=== PATIENT | female | born 1975 | race African-American/Black ===

== ENCOUNTER 2022-01-29 20:18 | Inpatient (IN) | payer OTHER ==
[2022-01-29 21:18] VITALS: BMI 33.9
[2022-01-30] MEDS ORDERED: VANCOMYCIN 1 GM in D5W (PRE-DOCKED) 1,000 MG/250 ML IVPB ONE (00:33)
[2022-01-30] MEDS ORDERED: CEFTRIAXONE 1,000 MG in DEXTROSE 5%-WATER - 50 ML IVPB ONE (00:33)
[2022-01-30 01:56] LABS: BASO % 0.5 % (0-2.0); EOS % 2.4 % (0-4.5); HEMATOCRIT 34.4 % (32.4-45.2); HEMOGLOBIN 11.2 GM/dL (10.7-15.3); LYMPH % 30.8 % (8-40); MCH 24.7 pg (25.7-33.7); MCHC 32.5 g/dl (32.0-36.0); MEAN PLT VOLUME 9.5 fl (7.5-11.1); MONO % 6.3 % (3.8-10.2); PLATELET COUNT 354 10^3/uL (134-434); RBC 4.52 M/mm3 (3.60-5.2); RDW 16.4 % (11.6-15.6); WHITE BLOOD COUNT 9.4 K/mm3 (4.0-10.0)
[2022-01-30] MEDS ORDERED: CEFTRIAXONE 1 GM/50 ML BAG ONE (01:56)
[2022-01-30 02:03] LABS: INR 0.92 (0.83-1.09); PROTHROMBIN TIME (PATIENT) 10.6 SEC (9.7-13.0)
[2022-01-30 02:05] LABS: ACTIVATED PTT 29.8 SECONDS (25.2-36.5)
[2022-01-30 02:20] LABS: CHLORIDE 102 mmol/L (98-107); SODIUM 138 mmol/L (136-145)
[2022-01-30] MEDS ORDERED: VANCOMYCIN/WATER FOR INJ (PEG) 1,000 MG/200 ML BAG IVPB ONE (02:38)
[2022-01-30 02:51] LABS: ERYTHROCYTE SEDIMENTATION RATE 84 mm/hr (0-20)
[2022-01-30] MEDS ORDERED: POTASSIUM CHLORIDE TABS 20 MEQ TABLET.ER (FP) PO ONE (04:20)
[2022-01-30 04:33] LABS: SGOT/AST 33 U/L (15-37)
[2022-01-30 04:46] LABS: ALBUMIN 2.6 g/dl (3.4-5.0); BLOOD UREA NITROGEN 11.7 mg/dL (7-18); CO2 27 mmol/L (21-32); GLUCOSE,RANDOM 310 mg/dL (74-106)
[2022-01-30 04:49] LABS: SGPT/ALT 12 U/L (13-61)
[2022-01-30 04:51] LABS: BILIRUBIN,TOTAL 0.4 mg/dL (0.2-1); TOT PROT 7.3 g/dl (6.4-8.2)
[2022-01-30 04:52] LABS: ALK PHOS 68 U/L (45-117)
[2022-01-30] MEDS ORDERED: MELATONIN 5 MG TABLETS PO PRN (05:04)
[2022-01-30] MEDS ORDERED: ACETAMINOPHEN 500 MG TABLET (FP) PO PRN (05:04)
[2022-01-30] MEDS ORDERED: INSULIN (NOVOLOG) ASPART 100 UNITS/ML 10ML VIAL SQ ONE (05:08)
[2022-01-30 05:16] LABS: ANION GAP 9 MMOL/L (8-16)
[2022-01-30] MEDS: INSULIN SLIDING SCALE (NOVOLOG) 1 VIAL SQ SCH ×4 (08:45→21:11)
[2022-01-30] MEDS ORDERED: LOSARTAN POTASSIUM 50 MG TABLET ONE ×2 (09:34→09:43)
[2022-01-30] MEDS ORDERED: ENOXAPARIN NA (PORCINE) 40 MG/0.4 ML DISP.SYRIN SQ ONE (09:35)
[2022-01-30] MEDS: LOSARTAN POTASSIUM 50 MG TABLET PO SCH (09:49)
[2022-01-30] MEDS: ENOXAPARIN NA (PORCINE) 40 MG/0.4 ML DISP.SYRIN SQ SCH (09:50)
[2022-01-30] MEDS ORDERED: amLODIPine BESYLATE 10 MG TABLET (FP) PO SCH (10:00)
[2022-01-30] MEDS: INSULIN (LEVEMIR) 100 UNITS/ML UNITS SQ SCH ×2 (12:00→21:10)
[2022-01-30] MEDS: CARVEDILOL 6.25 MG TABLET (FP) PO SCH ×2 (20:20→21:01)
[2022-01-30] MEDS: CHLORTHALIDONE 25 MG TABLET PO SCH (20:20)
[2022-01-30] MEDS: COLLAGENASE CLOSTRIDIUM HIST. 30 GRAMS TUBE TP SCH (20:21)
[2022-01-30] MEDS: PIPERACILLIN/TAZOB 3.375 GM 3.375 GM in DEXTROSE 5%-WATER - 50 ML IVPB SCH (20:31)
[2022-01-30] MEDS: DOXYCYCLINE HYCLATE 100 MG CAPSULE PO SCH ×2 (20:31→20:38)
[2022-01-30] MEDS ORDERED: INSULIN (NOVOLOG) ASPART 100 UNITS/ML 10ML VIAL ONE (21:14)
[2022-01-30] MEDS: ROSUVASTATIN CA 20 MG TABLET PO SCH (21:35)
[2022-01-30] MEDS: ACETAMINOPHEN 1000 MG/100 ML BAG IVPB PRN (22:18)
[2022-01-31] MEDS: PIPERACILLIN/TAZOB 3.375 GM 3.375 GM in DEXTROSE 5%-WATER - 50 ML IVPB SCH ×3 (02:26→17:05)
[2022-01-31] MEDS: INSULIN (LEVEMIR) 100 UNITS/ML UNITS SQ SCH ×2 (06:39→22:45)
[2022-01-31] MEDS: ACETAMINOPHEN 1000 MG/100 ML BAG IVPB PRN (06:39)
[2022-01-31] MEDS: INSULIN SLIDING SCALE (NOVOLOG) 1 VIAL SQ SCH ×4 (06:42→22:46)
[2022-01-31] MEDS: CARVEDILOL 6.25 MG TABLET (FP) PO SCH ×2 (09:23→22:44)
[2022-01-31] MEDS: LOSARTAN POTASSIUM 50 MG TABLET PO SCH (09:23)
[2022-01-31] MEDS: CHLORTHALIDONE 25 MG TABLET PO SCH (09:24)
[2022-01-31] MEDS: ENOXAPARIN NA (PORCINE) 40 MG/0.4 ML DISP.SYRIN SQ SCH (09:24)
[2022-01-31] MEDS: COLLAGENASE CLOSTRIDIUM HIST. 30 GRAMS TUBE TP SCH (09:30)
[2022-01-31 10:06] LABS: BASO % 0.5 % (0-2.0); EOS % 3.6 % (0-4.5); HEMOGLOBIN 10.2 GM/dL (10.7-15.3); LYMPH % 36.8 % (8-40); MCH 24.8 pg (25.7-33.7); MCHC 32.9 g/dl (32.0-36.0); MEAN CELL VOLUME 75.5 fl (80-96); MEAN PLT VOLUME 9.8 fl (7.5-11.1); MONO % 9.2 % (3.8-10.2); NEUT % 49.9 % (42.8-82.8); PLATELET COUNT 335 10^3/uL (134-434); RDW 16.5 % (11.6-15.6)
[2022-01-31 10:20] LABS: CALCIUM 8.6 mg/dL (8.5-10.1)
[2022-01-31 10:21] LABS: BLOOD UREA NITROGEN 12.5 mg/dL (7-18)
[2022-01-31 10:24] LABS: CREATININE 0.8 mg/dL (0.55-1.3)
[2022-01-31] MEDS: DOXYCYCLINE HYCLATE 100 MG CAPSULE PO SCH ×3 (11:08→17:07)
[2022-01-31 12:00] LABS: CHOLESTEROL 239 mg/dL (50-200); TRIGLYCERIDES 225 mg/dL (0-150)
[2022-01-31 12:02] LABS: LDL CHOLESTEROL (ONLY SJRH) 139 mg/dL (5-100)
[2022-01-31 12:03] LABS: HDL CHOLESTEROL 63 mg/dL (40-60)
[2022-01-31] MEDS ORDERED: BISMUTH SUBSALICYLATE 524 MG/30 ML PO ONE (13:19)
[2022-01-31] MEDS: TRIMETHOBENZAMIDE HCL 200MG/2ML INJ IM PRN (13:27)
[2022-01-31] MEDS: GABAPENTIN 300 MG CAPSULE PO SCH ×2 (13:47→22:44)
[2022-01-31] MEDS ORDERED: INSULIN (NOVOLOG) ASPART 100 UNITS/ML 10ML VIAL ONE (22:35)
[2022-01-31] MEDS: ROSUVASTATIN CA 20 MG TABLET PO SCH (22:42)
[2022-02-01] MEDS: PIPERACILLIN/TAZOB 3.375 GM 3.375 GM in DEXTROSE 5%-WATER - 50 ML IVPB SCH ×3 (03:08→17:37)
[2022-02-01] MEDS ORDERED: traMADol HCL 50 MG TABLET PO ONE (05:24)
[2022-02-01] MEDS: INSULIN (LEVEMIR) 100 UNITS/ML UNITS SQ SCH ×2 (06:53→22:22)
[2022-02-01] MEDS: GABAPENTIN 300 MG CAPSULE PO SCH ×3 (06:53→22:16)
[2022-02-01] MEDS: INSULIN SLIDING SCALE (NOVOLOG) 1 VIAL SQ SCH ×4 (06:56→22:46)
[2022-02-01 10:31] LABS: BASO % 0.5 % (0-2.0); EOS % 4.4 % (0-4.5); HEMATOCRIT 32.1 % (32.4-45.2); HEMOGLOBIN 10.5 GM/dL (10.7-15.3); LYMPH % 41.7 % (8-40); MCH 24.7 pg (25.7-33.7); MCHC 32.7 g/dl (32.0-36.0); MEAN CELL VOLUME 75.5 fl (80-96); MEAN PLT VOLUME 9.5 fl (7.5-11.1); MONO % 7.6 % (3.8-10.2); NEUT % 45.8 % (42.8-82.8); PLATELET COUNT 366 10^3/uL (134-434); RBC 4.25 M/mm3 (3.60-5.2); RDW 16.5 % (11.6-15.6); WHITE BLOOD COUNT 6.1 K/mm3 (4.0-10.0)
[2022-02-01] MEDS: CARVEDILOL 6.25 MG TABLET (FP) PO SCH ×2 (10:35→22:15)
[2022-02-01] MEDS: LOSARTAN POTASSIUM 50 MG TABLET PO SCH (10:36)
[2022-02-01] MEDS: DOXYCYCLINE HYCLATE 100 MG CAPSULE PO SCH ×2 (10:38→17:21)
[2022-02-01 10:42] LABS: BLOOD UREA NITROGEN 10.3 mg/dL (7-18); CALCIUM 8.8 mg/dL (8.5-10.1)
[2022-02-01 10:46] LABS: CREATININE 0.8 mg/dL (0.55-1.3)
[2022-02-01] MEDS: CHLORTHALIDONE 25 MG TABLET PO SCH (11:11)
[2022-02-01] MEDS: COLLAGENASE CLOSTRIDIUM HIST. 30 GRAMS TUBE TP SCH (11:17)
[2022-02-01] MEDS: ENOXAPARIN NA (PORCINE) 40 MG/0.4 ML DISP.SYRIN SQ SCH (11:23)
[2022-02-01] MEDS: ROSUVASTATIN CA 20 MG TABLET PO SCH (22:16)
[2022-02-02] MEDS: PIPERACILLIN/TAZOB 3.375 GM 3.375 GM in DEXTROSE 5%-WATER - 50 ML IVPB SCH ×3 (02:03→17:12)
[2022-02-02] MEDS: BISMUTH SUBSALICYLATE 524 MG/30 ML PO PRN (02:14)
[2022-02-02] MEDS: GABAPENTIN 300 MG CAPSULE PO SCH ×3 (06:04→21:13)
[2022-02-02] MEDS: INSULIN (LEVEMIR) 100 UNITS/ML UNITS SQ SCH ×2 (06:08→21:18)
[2022-02-02] MEDS: INSULIN SLIDING SCALE (NOVOLOG) 1 VIAL SQ SCH ×4 (06:11→21:20)
[2022-02-02] MEDS: ENOXAPARIN NA (PORCINE) 40 MG/0.4 ML DISP.SYRIN SQ SCH (09:58)
[2022-02-02] MEDS: CARVEDILOL 6.25 MG TABLET (FP) PO SCH ×2 (09:58→21:13)
[2022-02-02] MEDS: DOXYCYCLINE HYCLATE 100 MG CAPSULE PO SCH ×3 (09:59→17:11)
[2022-02-02] MEDS: CHLORTHALIDONE 25 MG TABLET PO SCH (09:59)
[2022-02-02] MEDS: LOSARTAN POTASSIUM 50 MG TABLET PO SCH (09:59)
[2022-02-02 10:38] LABS: BASO % 0.4 % (0-2.0); EOS % 3.6 % (0-4.5); HEMATOCRIT 30.3 % (32.4-45.2); LYMPH % 36.3 % (8-40); MCH 25.3 pg (25.7-33.7); MCHC 33.1 g/dl (32.0-36.0); MEAN CELL VOLUME 76.3 fl (80-96); MEAN PLT VOLUME 8.8 fl (7.5-11.1); NEUT % 51.7 % (42.8-82.8); PLATELET COUNT 342 10^3/uL (134-434); RBC 3.98 M/mm3 (3.60-5.2); RDW 16.2 % (11.6-15.6); WHITE BLOOD COUNT 7.2 K/mm3 (4.0-10.0)
[2022-02-02 11:02] LABS: CALCIUM 8.5 mg/dL (8.5-10.1)
[2022-02-02 11:03] LABS: BLOOD UREA NITROGEN 16.1 mg/dL (7-18)
[2022-02-02 11:06] LABS: CREATININE 1.3 mg/dL (0.55-1.3)
[2022-02-02] MEDS ORDERED: INSULIN (NOVOLOG) ASPART 100 UNITS/ML 10ML VIAL ONE (12:31)
[2022-02-02] MEDS: TRIMETHOBENZAMIDE HCL 200MG/2ML INJ IM PRN (12:39)
[2022-02-02] MEDS: COLLAGENASE CLOSTRIDIUM HIST. 30 GRAMS TUBE TP SCH (12:39)
[2022-02-02] MEDS: ROSUVASTATIN CA 20 MG TABLET PO SCH (21:12)
[2022-02-03] MEDS: PIPERACILLIN/TAZOB 3.375 GM 3.375 GM in DEXTROSE 5%-WATER - 50 ML IVPB SCH (01:18)
[2022-02-03] MEDS: GABAPENTIN 300 MG CAPSULE PO SCH ×3 (06:19→22:39)
[2022-02-03] MEDS: INSULIN (LEVEMIR) 100 UNITS/ML UNITS SQ SCH ×2 (06:20→22:39)
[2022-02-03] MEDS: INSULIN SLIDING SCALE (NOVOLOG) 1 VIAL SQ SCH ×4 (06:21→22:40)
[2022-02-03] MEDS: LOSARTAN POTASSIUM 50 MG TABLET PO SCH (10:06)
[2022-02-03] MEDS: ENOXAPARIN NA (PORCINE) 40 MG/0.4 ML DISP.SYRIN SQ SCH (10:06)
[2022-02-03] MEDS: CARVEDILOL 6.25 MG TABLET (FP) PO SCH ×2 (10:06→22:38)
[2022-02-03] MEDS: COLLAGENASE CLOSTRIDIUM HIST. 30 GRAMS TUBE TP SCH (10:07)
[2022-02-03] MEDS: CHLORTHALIDONE 25 MG TABLET PO SCH (10:07)
[2022-02-03 10:19] LABS: BASO % 0.4 % (0-2.0); EOS % 2.7 % (0-4.5); HEMATOCRIT 32.3 % (32.4-45.2); HEMOGLOBIN 10.5 GM/dL (10.7-15.3); LYMPH % 33.5 % (8-40); MCHC 32.6 g/dl (32.0-36.0); MEAN CELL VOLUME 76.7 fl (80-96); MEAN PLT VOLUME 9.3 fl (7.5-11.1); NEUT % 54.4 % (42.8-82.8); PLATELET COUNT 358 10^3/uL (134-434); RBC 4.21 M/mm3 (3.60-5.2); RDW 16.3 % (11.6-15.6); WHITE BLOOD COUNT 6.8 K/mm3 (4.0-10.0)
[2022-02-03 11:01] LABS: BLOOD UREA NITROGEN 15.7 mg/dL (7-18)
[2022-02-03 11:05] LABS: CREATININE 1.3 mg/dL (0.55-1.3)
[2022-02-03] MEDS: ROSUVASTATIN CA 20 MG TABLET PO SCH (22:38)
[2022-02-04] MEDS: GABAPENTIN 300 MG CAPSULE PO SCH ×3 (06:55→22:41)
[2022-02-04] MEDS: INSULIN (LEVEMIR) 100 UNITS/ML UNITS SQ SCH ×2 (06:56→22:42)
[2022-02-04] MEDS: INSULIN SLIDING SCALE (NOVOLOG) 1 VIAL SQ SCH ×4 (06:57→22:43)
[2022-02-04 09:29] LABS: BASO % 0.6 % (0-2.0); EOS % 2.2 % (0-4.5); HEMATOCRIT 31.8 % (32.4-45.2); HEMOGLOBIN 10.2 GM/dL (10.7-15.3); LYMPH % 32.6 % (8-40); MCH 24.4 pg (25.7-33.7); MEAN CELL VOLUME 76.3 fl (80-96); MONO % 5.2 % (3.8-10.2); NEUT % 59.4 % (42.8-82.8); PLATELET COUNT 381 10^3/uL (134-434); RBC 4.16 M/mm3 (3.60-5.2); RDW 16.6 % (11.6-15.6); WHITE BLOOD COUNT 8.6 K/mm3 (4.0-10.0)
[2022-02-04] MEDS: CHLORTHALIDONE 25 MG TABLET PO SCH (09:31)
[2022-02-04] MEDS: LOSARTAN POTASSIUM 50 MG TABLET PO SCH (09:31)
[2022-02-04] MEDS: ENOXAPARIN NA (PORCINE) 40 MG/0.4 ML DISP.SYRIN SQ SCH (09:31)
[2022-02-04] MEDS: CARVEDILOL 6.25 MG TABLET (FP) PO SCH ×2 (09:31→22:40)
[2022-02-04] MEDS: COLLAGENASE CLOSTRIDIUM HIST. 30 GRAMS TUBE TP SCH (09:31)
[2022-02-04 10:00] LABS: BLOOD UREA NITROGEN 26.2 mg/dL (7-18)
[2022-02-04 10:03] LABS: CREATININE 1.5 mg/dL (0.55-1.3)
[2022-02-04] MEDS: TRIMETHOBENZAMIDE HCL 200MG/2ML INJ IM PRN (12:59)
[2022-02-04] MEDS: BISMUTH SUBSALICYLATE 524 MG/30 ML PO PRN (14:38)
[2022-02-04 15:58] LABS: INR 0.92 (0.83-1.09); PROTHROMBIN TIME (PATIENT) 10.6 SEC (9.7-13.0)
[2022-02-04] MEDS ORDERED: BISMUTH SUBSALICYLATE 524 MG/30 ML PO ONE (22:30)
[2022-02-04] MEDS ORDERED: SIMETHICONE 80 MG TAB.CHEW (FP) PO ONE (22:31)
[2022-02-04] MEDS: ROSUVASTATIN CA 20 MG TABLET PO SCH (22:41)
[2022-02-05] MEDS ORDERED: SIMETHICONE 80 MG TAB.CHEW (FP) PO ONE (01:30)
[2022-02-05] MEDS: GABAPENTIN 300 MG CAPSULE PO SCH ×3 (07:44→22:40)
[2022-02-05] MEDS: INSULIN (LEVEMIR) 100 UNITS/ML UNITS SQ SCH ×2 (07:44→22:43)
[2022-02-05] MEDS: INSULIN SLIDING SCALE (NOVOLOG) 1 VIAL SQ SCH ×4 (07:45→22:46)
[2022-02-05] MEDS: LOSARTAN POTASSIUM 50 MG TABLET PO SCH (09:13)
[2022-02-05] MEDS: CARVEDILOL 6.25 MG TABLET (FP) PO SCH ×2 (09:13→22:40)
[2022-02-05] MEDS: COLLAGENASE CLOSTRIDIUM HIST. 30 GRAMS TUBE TP SCH (09:13)
[2022-02-05 10:37] LABS: BASO % 0.4 % (0-2.0); EOS % 2.1 % (0-4.5); HEMATOCRIT 30.7 % (32.4-45.2); LYMPH % 41.6 % (8-40); MCH 24.7 pg (25.7-33.7); MCHC 32.6 g/dl (32.0-36.0); MEAN CELL VOLUME 75.6 fl (80-96); MEAN PLT VOLUME 9.1 fl (7.5-11.1); MONO % 7.8 % (3.8-10.2); NEUT % 48.1 % (42.8-82.8); PLATELET COUNT 370 10^3/uL (134-434); RBC 4.06 M/mm3 (3.60-5.2); RDW 16.6 % (11.6-15.6); WHITE BLOOD COUNT 8.4 K/mm3 (4.0-10.0)
[2022-02-05] MEDS: CHLORTHALIDONE 25 MG TABLET PO SCH (10:38)
[2022-02-05 10:58] LABS: CHLORIDE 105 mmol/L (98-107); SODIUM 143 mmol/L (136-145)
[2022-02-05 11:03] LABS: CREATININE 1.1 mg/dL (0.55-1.3)
[2022-02-05 11:59] LABS: CALCIUM 8.9 mg/dL (8.5-10.1)
[2022-02-05 12:00] LABS: BLOOD UREA NITROGEN 18.3 mg/dL (7-18); CO2 31 mmol/L (21-32); GLUCOSE,RANDOM 166 mg/dL (74-106)
[2022-02-05 12:01] LABS: ANION GAP 7 MMOL/L (8-16)
[2022-02-05] MEDS ORDERED: ACETAMINOPHEN 325 MG TABLET (FP) PO PRN (12:19)
[2022-02-05] MEDS ORDERED: INSULIN (NOVOLOG) ASPART 100 UNITS/ML 10ML VIAL ONE (17:04)
[2022-02-05] MEDS: ROSUVASTATIN CA 20 MG TABLET PO SCH (22:41)
[2022-02-06] MEDS ORDERED: ACETAMINOPHEN 1000 MG/100 ML BAG IVPB ONE (03:57)
[2022-02-06] MEDS: INSULIN SLIDING SCALE (NOVOLOG) 1 VIAL SQ SCH ×4 (07:00→22:15)
[2022-02-06] MEDS: INSULIN (LEVEMIR) 100 UNITS/ML UNITS SQ SCH ×2 (07:00→22:11)
[2022-02-06] MEDS: GABAPENTIN 300 MG CAPSULE PO SCH ×3 (07:21→22:08)
[2022-02-06] MEDS ORDERED: PROPOFOL 20 ML ONE ×2 (09:13→10:04)
[2022-02-06] MEDS ORDERED: LIDOCAINE HCL/PF 2% SDV 5ML VIAL ONE (09:13)
[2022-02-06] MEDS ORDERED: MIDAZOLAM HCL 2 MG/2 ML SINGLE DOSE VIAL ONE (09:13)
[2022-02-06] MEDS ORDERED: FENTANYL CITRATE/PF 50 MCG/ML VIAL ONE ×2 (09:13→10:44)
[2022-02-06] MEDS ORDERED: ONDANSETRON 4 MG/2 ML VIAL IVPUSH PRN ×2 (09:24→10:42)
[2022-02-06] MEDS ORDERED: LACTATED RINGERS SOLUTION 1,000 ML IV SCH (09:30)
[2022-02-06] MEDS ORDERED: LIDOCAINE HCL 1%, 10 MG/ML (20ML VIAL) ONE (09:34)
[2022-02-06] MEDS ORDERED: BUPIVACAINE HCL/PF 0.5% (5MG/ML) 10 ML VIAL ONE (09:35)
[2022-02-06] MEDS ORDERED: LIDOCAINE HCL 1%, 10 MG/ML (50 mL VIAL) SQ ONE (10:05)
[2022-02-06] MEDS ORDERED: BUPIVACAINE HCL/PF 0.5% (5MG/ML) 10 ML VIAL IJ ONE (10:05)
[2022-02-06] MEDS ORDERED: TRIMETHOBENZAMIDE HCL 200MG/2ML INJ IM PRN (10:42)
[2022-02-06] MEDS ORDERED: MELATONIN 5 MG TABLETS PO PRN (10:42)
[2022-02-06] MEDS ORDERED: LABETALOL HCL 5 MG/1 ML (100MG/20 ML VIAL) IVPUSH ONE (11:09)
[2022-02-06] MEDS: LACTATED RINGERS SOLUTION 1,000 ML IV SCH (11:40)
[2022-02-06 12:29] LABS: BASO % 0.5 % (0-2.0); EOS % 1.6 % (0-4.5); LYMPH % 41.3 % (8-40); MCH 24.4 pg (25.7-33.7); MCHC 32.1 g/dl (32.0-36.0); MEAN CELL VOLUME 75.9 fl (80-96); MONO % 7.1 % (3.8-10.2); NEUT % 49.5 % (42.8-82.8); PLATELET COUNT 398 10^3/uL (134-434); RBC 4.09 M/mm3 (3.60-5.2); WHITE BLOOD COUNT 7.9 K/mm3 (4.0-10.0)
[2022-02-06] MEDS ORDERED: LISINOPRIL 10 MG TABLET PO SCH (12:45)
[2022-02-06 12:56] LABS: CALCIUM 9.5 mg/dL (8.5-10.1)
[2022-02-06 12:57] LABS: BLOOD UREA NITROGEN 15.5 mg/dL (7-18)
[2022-02-06] MEDS: LOSARTAN POTASSIUM 50 MG TABLET PO SCH ×2 (13:42→13:45)
[2022-02-06] MEDS: CARVEDILOL 6.25 MG TABLET (FP) PO SCH ×3 (13:42→22:08)
[2022-02-06] MEDS: CHLORTHALIDONE 25 MG TABLET PO SCH ×2 (13:42→13:45)
[2022-02-06] MEDS: LISINOPRIL 10 MG TABLET PO SCH (13:44)
[2022-02-06] MEDS: COLLAGENASE CLOSTRIDIUM HIST. 30 GRAMS TUBE TP SCH (13:45)
[2022-02-06] MEDS ORDERED: CARVEDILOL 6.25 MG TABLET (FP) PO ONE (16:32)
[2022-02-06] MEDS ORDERED: LISINOPRIL 10 MG TABLET PO ONE (16:34)
[2022-02-06] MEDS ORDERED: VANCOMYCIN 1,000 MG in DEXTROSE 5%-WATER - 250 ML IVPB SCH (18:45)
[2022-02-06] MEDS: PIPERACILLIN/TAZOB 4.5 GM 4.5 GM in DEXTROSE 5%-WATER 100 ML IVPB SCH (18:52)
[2022-02-06] MEDS: VANCOMYCIN/WATER FOR INJ (PEG) 1,000 MG/200 ML BAG IVPB SCH (20:23)
[2022-02-06] MEDS ORDERED: INSULIN (NOVOLOG) ASPART 100 UNITS/ML 10ML VIAL ONE (21:20)
[2022-02-06] MEDS ORDERED: CARVEDILOL 6.25 MG TABLET (FP) PO SCH (22:00)
[2022-02-06] MEDS ORDERED: INSULIN (LEVEMIR) 100 UNITS/ML UNITS SQ SCH (22:00)
[2022-02-06] MEDS: ROSUVASTATIN CA 20 MG TABLET PO SCH (22:08)
[2022-02-06] MEDS: BISMUTH SUBSALICYLATE 524 MG/30 ML PO PRN (23:25)
[2022-02-07] MEDS: PIPERACILLIN/TAZOB 4.5 GM 4.5 GM in DEXTROSE 5%-WATER 100 ML IVPB SCH ×3 (02:32→17:12)
[2022-02-07] MEDS: ACETAMINOPHEN 325 MG TABLET (FP) PO PRN (03:13)
[2022-02-07] MEDS: GABAPENTIN 300 MG CAPSULE PO SCH ×3 (05:49→21:46)
[2022-02-07] MEDS: INSULIN (LEVEMIR) 100 UNITS/ML UNITS SQ SCH ×2 (06:14→22:01)
[2022-02-07] MEDS: INSULIN SLIDING SCALE (NOVOLOG) 1 VIAL SQ SCH ×4 (06:14→22:00)
[2022-02-07] MEDS: VANCOMYCIN/WATER FOR INJ (PEG) 1,000 MG/200 ML BAG IVPB SCH ×2 (07:42→23:25)
[2022-02-07] MEDS: LOSARTAN POTASSIUM 50 MG TABLET PO SCH (09:26)
[2022-02-07] MEDS: CARVEDILOL 12.5 MG TABLET (FP) PO SCH ×2 (09:26→22:01)
[2022-02-07] MEDS: CHLORTHALIDONE 25 MG TABLET PO SCH (09:26)
[2022-02-07] MEDS: BISMUTH SUBSALICYLATE 524 MG/30 ML PO PRN (09:52)
[2022-02-07] MEDS ORDERED: LISINOPRIL 10 MG TABLET PO SCH (10:00)
[2022-02-07] MEDS ORDERED: CHLORTHALIDONE 25 MG TABLET PO SCH (10:00)
[2022-02-07] MEDS ORDERED: LOSARTAN POTASSIUM 50 MG TABLET PO SCH (10:00)
[2022-02-07 10:38] LABS: BASO % 0.4 % (0-2.0); EOS % 1.8 % (0-4.5); HEMATOCRIT 26.9 % (32.4-45.2); LYMPH % 24.3 % (8-40); MCH 25.3 pg (25.7-33.7); MCHC 33.5 g/dl (32.0-36.0); MEAN CELL VOLUME 75.5 fl (80-96); MEAN PLT VOLUME 8.9 fl (7.5-11.1); NEUT % 66.5 % (42.8-82.8); PLATELET COUNT 326 10^3/uL (134-434); RBC 3.57 M/mm3 (3.60-5.2); RDW 15.8 % (11.6-15.6); WHITE BLOOD COUNT 9.8 K/mm3 (4.0-10.0)
[2022-02-07] MEDS: LACTATED RINGERS SOLUTION 1,000 ML IV SCH (10:52)
[2022-02-07 10:55] LABS: CHLORIDE 103 mmol/L (98-107); SODIUM 142 mmol/L (136-145)
[2022-02-07 11:07] LABS: GLUCOSE,RANDOM 125 mg/dL (74-106)
[2022-02-07 11:10] LABS: ANION GAP 11 MMOL/L (8-16); BLOOD UREA NITROGEN 17.8 mg/dL (7-18); CALCIUM 9.3 mg/dL (8.5-10.1); CO2 28 mmol/L (21-32); CREATININE 1.1 mg/dL (0.55-1.3)
[2022-02-07] MEDS ORDERED: INSULIN (NOVOLOG) ASPART 100 UNITS/ML 10ML VIAL ONE (11:18)
[2022-02-07] MEDS ORDERED: POTASSIUM CHLORIDE TABS 20 MEQ TABLET.ER (FP) PO ONE (13:30)
[2022-02-07 14:28] LABS: MAGNESIUM 1.9 mg/dL (1.8-2.4)
[2022-02-07 14:32] LABS: PHOSPHOROUS 4.4 mg/dL (2.5-4.9)
[2022-02-07] MEDS: oxyCODONE HCL 5 MG TABLET PO PRN (21:42)
[2022-02-07] MEDS: ROSUVASTATIN CA 20 MG TABLET PO SCH (21:45)
[2022-02-07] MEDS: KCL 10 MEQ IVPB 10 MEQ/100 ML INFUS.BAG IVPB SCH (22:01)
[2022-02-08] MEDS: KCL 10 MEQ IVPB 10 MEQ/100 ML INFUS.BAG IVPB SCH (00:25)
[2022-02-08] MEDS ORDERED: POTASSIUM CHLORIDE ORAL LIQUID 20 MEQ/15 ML PO ONE ×2 (01:03→15:34)
[2022-02-08] MEDS: PIPERACILLIN/TAZOB 4.5 GM 4.5 GM in DEXTROSE 5%-WATER 100 ML IVPB SCH ×3 (02:31→17:25)
[2022-02-08] MEDS: GABAPENTIN 300 MG CAPSULE PO SCH ×3 (05:36→21:34)
[2022-02-08] MEDS: INSULIN (LEVEMIR) 100 UNITS/ML UNITS SQ SCH ×2 (06:15→21:44)
[2022-02-08] MEDS: INSULIN SLIDING SCALE (NOVOLOG) 1 VIAL SQ SCH ×4 (06:16→21:33)
[2022-02-08] MEDS: CHLORTHALIDONE 25 MG TABLET PO SCH (09:42)
[2022-02-08] MEDS: CARVEDILOL 12.5 MG TABLET (FP) PO SCH ×2 (09:42→21:34)
[2022-02-08] MEDS: LOSARTAN POTASSIUM 50 MG TABLET PO SCH (09:42)
[2022-02-08] MEDS: oxyCODONE HCL 5 MG TABLET PO PRN (09:42)
[2022-02-08 10:14] LABS: BASO % 0.5 % (0-2.0); EOS % 3.3 % (0-4.5); HEMATOCRIT 26.5 % (32.4-45.2); HEMOGLOBIN 8.6 GM/dL (10.7-15.3); LYMPH % 26.4 % (8-40); MCH 24.7 pg (25.7-33.7); MCHC 32.5 g/dl (32.0-36.0); MEAN CELL VOLUME 76.1 fl (80-96); MEAN PLT VOLUME 9.2 fl (7.5-11.1); MONO % 7.6 % (3.8-10.2); NEUT % 62.2 % (42.8-82.8); PLATELET COUNT 339 10^3/uL (134-434); RBC 3.48 M/mm3 (3.60-5.2); RDW 16.1 % (11.6-15.6)
[2022-02-08 10:25] LABS: CALCIUM 8.8 mg/dL (8.5-10.1)
[2022-02-08 10:26] LABS: BLOOD UREA NITROGEN 17.8 mg/dL (7-18)
[2022-02-08 10:29] LABS: CREATININE 1.2 mg/dL (0.55-1.3)
[2022-02-08] MEDS ORDERED: ONDANSETRON 4 MG/2 ML VIAL IVPUSH PRN (12:23)
[2022-02-08] MEDS ORDERED: MAG HYDROX/AL HYDROX/SIMETH 30 ML UNIT-DOSE CUP PO SCH ×2 (13:15→18:00)
[2022-02-08] MEDS: LACTATED RINGERS SOLUTION 1,000 ML IV SCH (13:58)
[2022-02-08] MEDS: MAG HYDROX/AL HYDROX/SIMETH 30 ML UNIT-DOSE CUP PO SCH ×2 (13:59→17:25)
[2022-02-08 14:44] LABS: MAGNESIUM 1.9 mg/dL (1.8-2.4)
[2022-02-08 14:48] LABS: PHOSPHOROUS 4.3 mg/dL (2.5-4.9)
[2022-02-08] MEDS ORDERED: KCL 10 MEQ IVPB 10 MEQ/100 ML INFUS.BAG IVPB SCH (14:50)
[2022-02-08] MEDS: COLLAGENASE CLOSTRIDIUM HIST. 30 GRAMS TUBE TP SCH (17:23)
[2022-02-08] MEDS ORDERED: HEPARIN NA (PORCINE) 5,000 UNITS/ML 1ML VIAL IVPUSH PRN ×2 (17:39)
[2022-02-08] MEDS ORDERED: HEPARIN NA (PORCINE) 5,000 UNITS/ML 1ML VIAL SQ ONE (17:39)
[2022-02-08] MEDS ORDERED: NITROGLYCERIN SUBLINGUAL 1/150 0.4 MG TAB SL ONE (18:14)
[2022-02-08] MEDS: VANCOMYCIN/WATER FOR INJ (PEG) 1,000 MG/200 ML BAG IVPB SCH (19:39)
[2022-02-08] MEDS: HEPARIN - 25,000 UNIT in SODIUM CHLORIDE 495 ML IV SCH (19:52)
[2022-02-08] MEDS ORDERED: ASPIRIN 325 MG TABLET PO ONE (20:07)
[2022-02-08] MEDS: ROSUVASTATIN CA 20 MG TABLET PO SCH (21:34)
[2022-02-09] MEDS: MAG HYDROX/AL HYDROX/SIMETH 30 ML UNIT-DOSE CUP PO SCH ×5 (00:37→23:26)
[2022-02-09] MEDS: PIPERACILLIN/TAZOB 4.5 GM 4.5 GM in DEXTROSE 5%-WATER 100 ML IVPB SCH ×3 (01:57→17:24)
[2022-02-09] MEDS: INSULIN SLIDING SCALE (NOVOLOG) 1 VIAL SQ SCH ×4 (06:27→22:16)
[2022-02-09] MEDS: GABAPENTIN 300 MG CAPSULE PO SCH ×3 (06:30→22:15)
[2022-02-09] MEDS: INSULIN (LEVEMIR) 100 UNITS/ML UNITS SQ SCH ×2 (06:30→22:15)
[2022-02-09] MEDS: LOSARTAN POTASSIUM 50 MG TABLET PO SCH (09:52)
[2022-02-09] MEDS: PANTOPRAZOLE 40 MG TABLET PO SCH (09:53)
[2022-02-09] MEDS: CARVEDILOL 12.5 MG TABLET (FP) PO SCH ×2 (09:53→22:15)
[2022-02-09] MEDS: CHLORTHALIDONE 25 MG TABLET PO SCH (09:55)
[2022-02-09] MEDS: VANCOMYCIN/WATER FOR INJ (PEG) 1,000 MG/200 ML BAG IVPB SCH (09:55)
[2022-02-09] MEDS: COLLAGENASE CLOSTRIDIUM HIST. 30 GRAMS TUBE TP SCH (09:56)
[2022-02-09 13:02] LABS: BASO % 0.7 % (0-2.0); HEMATOCRIT 27.1 % (32.4-45.2); HEMOGLOBIN 8.8 GM/dL (10.7-15.3); MCH 24.7 pg (25.7-33.7); MCHC 32.4 g/dl (32.0-36.0); MEAN CELL VOLUME 76.4 fl (80-96); MEAN PLT VOLUME 9.3 fl (7.5-11.1); MONO % 6.3 % (3.8-10.2); PLATELET COUNT 365 10^3/uL (134-434); RBC 3.54 M/mm3 (3.60-5.2); WHITE BLOOD COUNT 9.2 K/mm3 (4.0-10.0)
[2022-02-09 13:24] LABS: BLOOD UREA NITROGEN 17.8 mg/dL (7-18); CALCIUM 8.5 mg/dL (8.5-10.1)
[2022-02-09 13:28] LABS: CREATININE 1.3 mg/dL (0.55-1.3)
[2022-02-09] MEDS: POTASSIUM CHLORIDE TABS 20 MEQ TABLET.ER (FP) PO ONE ×2 (16:00→17:23)
[2022-02-09] MEDS ORDERED: DEXTROSE 50%-WATER 25 GM/50 ML DISP.SYRIN IVPUSH PRN (17:19)
[2022-02-09 18:01] LABS: MAGNESIUM 2.1 mg/dL (1.8-2.4)
[2022-02-09] MEDS: HEPARIN - 25,000 UNIT in SODIUM CHLORIDE 495 ML IV SCH (18:53)
[2022-02-09] MEDS: ROSUVASTATIN CA 20 MG TABLET PO SCH (22:15)
[2022-02-10] MEDS: HEPARIN - 25,000 UNIT in SODIUM CHLORIDE 495 ML IV SCH (00:56)
[2022-02-10] MEDS: GABAPENTIN 300 MG CAPSULE PO SCH ×3 (05:58→23:45)
[2022-02-10] MEDS: MAG HYDROX/AL HYDROX/SIMETH 30 ML UNIT-DOSE CUP PO SCH ×3 (05:58→17:04)
[2022-02-10] MEDS: INSULIN SLIDING SCALE (NOVOLOG) 1 VIAL SQ SCH ×4 (06:25→23:45)
[2022-02-10] MEDS: INSULIN (LEVEMIR) 100 UNITS/ML UNITS SQ SCH ×2 (06:33→23:00)
[2022-02-10 08:14] LABS: BASO % 0.9 % (0-2.0); EOS % 2.4 % (0-4.5); HEMATOCRIT 26.4 % (32.4-45.2); HEMOGLOBIN 8.7 GM/dL (10.7-15.3); LYMPH % 27.5 % (8-40); MCHC 32.8 g/dl (32.0-36.0); MEAN CELL VOLUME 76.1 fl (80-96); MEAN PLT VOLUME 9.4 fl (7.5-11.1); MONO % 6.2 % (3.8-10.2); PLATELET COUNT 340 10^3/uL (134-434); RBC 3.47 M/mm3 (3.60-5.2); WHITE BLOOD COUNT 9.5 K/mm3 (4.0-10.0)
[2022-02-10] MEDS ORDERED: amLODIPine BESYLATE 5 MG TABLET (FP) PO SCH (08:15)
[2022-02-10 08:16] LABS: CALCIUM 8.4 mg/dL (8.5-10.1)
[2022-02-10 08:18] LABS: BLOOD UREA NITROGEN 15.6 mg/dL (7-18)
[2022-02-10 08:20] LABS: CREATININE 1.2 mg/dL (0.55-1.3)
[2022-02-10] MEDS: ASPIRIN COATED 81 MG TABLET.EC PO SCH (09:08)
[2022-02-10] MEDS: LOSARTAN POTASSIUM 50 MG TABLET PO SCH (09:08)
[2022-02-10] MEDS: CARVEDILOL 12.5 MG TABLET (FP) PO SCH ×2 (09:08→23:00)
[2022-02-10] MEDS: PANTOPRAZOLE 40 MG TABLET PO SCH (09:08)
[2022-02-10] MEDS: COLLAGENASE CLOSTRIDIUM HIST. 30 GRAMS TUBE TP SCH (09:09)
[2022-02-10] MEDS: CHLORTHALIDONE 25 MG TABLET PO SCH (09:09)
[2022-02-10] MEDS: CEFTRIAXONE 2 GM in DEXTROSE 5%-WATER 100 ML IVPB SCH (09:09)
[2022-02-10] MEDS: ROSUVASTATIN CA 20 MG TABLET PO SCH (23:44)
[2022-02-11] MEDS: MAG HYDROX/AL HYDROX/SIMETH 30 ML UNIT-DOSE CUP PO SCH ×4 (00:10→18:06)
[2022-02-11] MEDS: GABAPENTIN 300 MG CAPSULE PO SCH ×3 (05:15→21:30)
[2022-02-11] MEDS: CARVEDILOL 12.5 MG TABLET (FP) PO SCH ×3 (05:15→21:31)
[2022-02-11] MEDS: INSULIN (LEVEMIR) 100 UNITS/ML UNITS SQ SCH ×2 (07:04→21:32)
[2022-02-11] MEDS: INSULIN SLIDING SCALE (NOVOLOG) 1 VIAL SQ SCH ×4 (07:05→21:32)
[2022-02-11 07:39] LABS: BASO % 0.6 % (0-2.0); EOS % 0.9 % (0-4.5); HEMATOCRIT 28.4 % (32.4-45.2); HEMOGLOBIN 9.1 GM/dL (10.7-15.3); LYMPH % 22.3 % (8-40); MCH 24.5 pg (25.7-33.7); MCHC 32.1 g/dl (32.0-36.0); MEAN CELL VOLUME 76.3 fl (80-96); MEAN PLT VOLUME 9.6 fl (7.5-11.1); MONO % 4.9 % (3.8-10.2); NEUT % 71.3 % (42.8-82.8); PLATELET COUNT 365 10^3/uL (134-434); RBC 3.72 M/mm3 (3.60-5.2); RDW 16.2 % (11.6-15.6); WHITE BLOOD COUNT 11.8 K/mm3 (4.0-10.0)
[2022-02-11 08:13] LABS: CALCIUM 8.7 mg/dL (8.5-10.1); CREATININE 1.1 mg/dL (0.55-1.3)
[2022-02-11 08:14] LABS: BLOOD UREA NITROGEN 11.7 mg/dL (7-18)
[2022-02-11] MEDS: CEFTRIAXONE 2 GM in DEXTROSE 5%-WATER 100 ML IVPB SCH (09:11)
[2022-02-11] MEDS: COLLAGENASE CLOSTRIDIUM HIST. 30 GRAMS TUBE TP SCH (09:12)
[2022-02-11] MEDS: amLODIPine BESYLATE 10 MG TABLET (FP) PO SCH (09:12)
[2022-02-11] MEDS: LOSARTAN POTASSIUM 50 MG TABLET PO SCH (09:12)
[2022-02-11] MEDS: ASPIRIN COATED 81 MG TABLET.EC PO SCH (09:12)
[2022-02-11] MEDS: PANTOPRAZOLE 40 MG TABLET PO SCH (09:12)
[2022-02-11] MEDS: CHLORTHALIDONE 25 MG TABLET PO SCH (09:12)
[2022-02-11] MEDS: oxyCODONE HCL 5 MG TABLET PO PRN (11:41)
[2022-02-11] MEDS: ENOXAPARIN NA (PORCINE) 40 MG/0.4 ML DISP.SYRIN SQ SCH (11:42)
[2022-02-11] MEDS: ROSUVASTATIN CA 20 MG TABLET PO SCH (21:32)
[2022-02-12] MEDS: MAG HYDROX/AL HYDROX/SIMETH 30 ML UNIT-DOSE CUP PO SCH ×4 (00:04→17:52)
[2022-02-12] MEDS: oxyCODONE HCL 5 MG TABLET PO PRN (04:33)
[2022-02-12] MEDS: GABAPENTIN 300 MG CAPSULE PO SCH ×3 (05:42→21:48)
[2022-02-12] MEDS: INSULIN (LEVEMIR) 100 UNITS/ML UNITS SQ SCH ×2 (06:22→21:48)
[2022-02-12] MEDS: INSULIN SLIDING SCALE (NOVOLOG) 1 VIAL SQ SCH ×4 (06:24→21:49)
[2022-02-12 07:44] LABS: BASO % 0.3 % (0-2.0); EOS % 1.6 % (0-4.5); HEMATOCRIT 26.3 % (32.4-45.2); HEMOGLOBIN 8.5 GM/dL (10.7-15.3); LYMPH % 27.4 % (8-40); MCH 24.8 pg (25.7-33.7); MCHC 32.4 g/dl (32.0-36.0); MEAN CELL VOLUME 76.4 fl (80-96); MEAN PLT VOLUME 9.2 fl (7.5-11.1); MONO % 6.8 % (3.8-10.2); NEUT % 63.9 % (42.8-82.8); PLATELET COUNT 348 10^3/uL (134-434); RBC 3.44 M/mm3 (3.60-5.2); RDW 16.3 % (11.6-15.6); WHITE BLOOD COUNT 8.4 K/mm3 (4.0-10.0)
[2022-02-12 08:03] LABS: CALCIUM 8.9 mg/dL (8.5-10.1)
[2022-02-12 08:04] LABS: BLOOD UREA NITROGEN 9.6 mg/dL (7-18)
[2022-02-12] MEDS: LOSARTAN POTASSIUM 50 MG TABLET PO SCH (09:49)
[2022-02-12] MEDS: CARVEDILOL 12.5 MG TABLET (FP) PO SCH ×2 (09:49→21:48)
[2022-02-12] MEDS: CEFTRIAXONE 2 GM in DEXTROSE 5%-WATER 100 ML IVPB SCH (09:50)
[2022-02-12] MEDS: amLODIPine BESYLATE 10 MG TABLET (FP) PO SCH (09:50)
[2022-02-12] MEDS: CHLORTHALIDONE 25 MG TABLET PO SCH (09:50)
[2022-02-12] MEDS: ENOXAPARIN NA (PORCINE) 40 MG/0.4 ML DISP.SYRIN SQ SCH (09:50)
[2022-02-12] MEDS: PANTOPRAZOLE 40 MG TABLET PO SCH (09:50)
[2022-02-12] MEDS: ASPIRIN COATED 81 MG TABLET.EC PO SCH (09:50)
[2022-02-12] MEDS: COLLAGENASE CLOSTRIDIUM HIST. 30 GRAMS TUBE TP SCH (13:48)
[2022-02-12] MEDS: ROSUVASTATIN CA 20 MG TABLET PO SCH (21:47)
[2022-02-13] MEDS: MAG HYDROX/AL HYDROX/SIMETH 30 ML UNIT-DOSE CUP PO SCH ×4 (00:20→17:30)
[2022-02-13] MEDS: GABAPENTIN 300 MG CAPSULE PO SCH ×3 (06:02→21:57)
[2022-02-13] MEDS: INSULIN (LEVEMIR) 100 UNITS/ML UNITS SQ SCH ×2 (06:03→21:54)
[2022-02-13] MEDS: INSULIN SLIDING SCALE (NOVOLOG) 1 VIAL SQ SCH ×4 (06:03→21:56)
[2022-02-13] MEDS ORDERED: REGADENOSON 0.4 MG/5 ML PRE-FILLED SYRINGE IVPUSH ONE ×2 (10:03→10:30)
[2022-02-13] MEDS: CEFTRIAXONE 2 GM in DEXTROSE 5%-WATER 100 ML IVPB SCH (12:35)
[2022-02-13] MEDS: CHLORTHALIDONE 25 MG TABLET PO SCH (12:35)
[2022-02-13] MEDS: CARVEDILOL 12.5 MG TABLET (FP) PO SCH ×2 (12:36→21:54)
[2022-02-13] MEDS: ENOXAPARIN NA (PORCINE) 40 MG/0.4 ML DISP.SYRIN SQ SCH (12:36)
[2022-02-13] MEDS: ASPIRIN COATED 81 MG TABLET.EC PO SCH (12:37)
[2022-02-13] MEDS: LACTOBACILLUS ACIDOPHILUS 1 TABLET PO SCH (12:37)
[2022-02-13] MEDS: LOSARTAN POTASSIUM 50 MG TABLET PO SCH (12:37)
[2022-02-13] MEDS: PANTOPRAZOLE 40 MG TABLET PO SCH (12:38)
[2022-02-13] MEDS: COLLAGENASE CLOSTRIDIUM HIST. 30 GRAMS TUBE TP SCH (12:38)
[2022-02-13] MEDS: amLODIPine BESYLATE 10 MG TABLET (FP) PO SCH (12:38)
[2022-02-13] MEDS: oxyCODONE HCL 5 MG TABLET PO PRN (20:01)
[2022-02-13] MEDS: ROSUVASTATIN CA 20 MG TABLET PO SCH (21:54)
[2022-02-14] MEDS: MAG HYDROX/AL HYDROX/SIMETH 30 ML UNIT-DOSE CUP PO SCH ×4 (01:15→18:14)
[2022-02-14] MEDS: INSULIN (LEVEMIR) 100 UNITS/ML UNITS SQ SCH ×2 (06:20→22:04)
[2022-02-14] MEDS: INSULIN SLIDING SCALE (NOVOLOG) 1 VIAL SQ SCH ×4 (06:20→22:04)
[2022-02-14] MEDS: GABAPENTIN 300 MG CAPSULE PO SCH ×3 (06:20→22:05)
[2022-02-14 08:00] LABS: BASO % 0.5 % (0-2.0); EOS % 1.5 % (0-4.5); HEMATOCRIT 24.7 % (32.4-45.2); HEMOGLOBIN 8.3 GM/dL (10.7-15.3); LYMPH % 33.8 % (8-40); MCH 25.7 pg (25.7-33.7); MCHC 33.7 g/dl (32.0-36.0); MEAN CELL VOLUME 76.3 fl (80-96); MEAN PLT VOLUME 9.1 fl (7.5-11.1); MONO % 8.9 % (3.8-10.2); NEUT % 55.3 % (42.8-82.8); PLATELET COUNT 331 10^3/uL (134-434); RBC 3.24 M/mm3 (3.60-5.2); RDW 16.7 % (11.6-15.6); WHITE BLOOD COUNT 10.6 K/mm3 (4.0-10.0)
[2022-02-14 08:24] LABS: ALBUMIN 2.1 g/dl (3.4-5.0); BLOOD UREA NITROGEN 13.8 mg/dL (7-18); CALCIUM 8.5 mg/dL (8.5-10.1); CREATININE 1.1 mg/dL (0.55-1.3)
[2022-02-14 08:25] LABS: BILIRUBIN,TOTAL 0.1 mg/dL (0.2-1); MAGNESIUM 2.4 mg/dL (1.8-2.4); TOT PROT 6.1 g/dl (6.4-8.2)
[2022-02-14 08:27] LABS: PHOSPHOROUS 3.9 mg/dL (2.5-4.9)
[2022-02-14] MEDS: CEFTRIAXONE 2 GM in DEXTROSE 5%-WATER 100 ML IVPB SCH (10:24)
[2022-02-14] MEDS: ENOXAPARIN NA (PORCINE) 40 MG/0.4 ML DISP.SYRIN SQ SCH (10:24)
[2022-02-14] MEDS: CARVEDILOL 12.5 MG TABLET (FP) PO SCH ×2 (10:25→22:05)
[2022-02-14] MEDS: amLODIPine BESYLATE 10 MG TABLET (FP) PO SCH (10:25)
[2022-02-14] MEDS: ACETAMINOPHEN 325 MG TABLET (FP) PO PRN (10:25)
[2022-02-14] MEDS: LOSARTAN POTASSIUM 50 MG TABLET PO SCH (10:26)
[2022-02-14] MEDS: ASPIRIN COATED 81 MG TABLET.EC PO SCH (10:26)
[2022-02-14] MEDS: LACTOBACILLUS ACIDOPHILUS 1 TABLET PO SCH (10:26)
[2022-02-14] MEDS: CHLORTHALIDONE 25 MG TABLET PO SCH (10:26)
[2022-02-14] MEDS: PANTOPRAZOLE 40 MG TABLET PO SCH (10:26)
[2022-02-14] MEDS: COLLAGENASE CLOSTRIDIUM HIST. 30 GRAMS TUBE TP SCH (10:29)
[2022-02-14] MEDS: oxyCODONE HCL 5 MG TABLET PO PRN ×2 (10:35→23:10)
[2022-02-14] MEDS: ROSUVASTATIN CA 20 MG TABLET PO SCH (22:05)
[2022-02-15] MEDS: MAG HYDROX/AL HYDROX/SIMETH 30 ML UNIT-DOSE CUP PO SCH ×4 (01:24→17:32)
[2022-02-15] MEDS: INSULIN (LEVEMIR) 100 UNITS/ML UNITS SQ SCH ×2 (06:38→22:21)
[2022-02-15] MEDS: GABAPENTIN 300 MG CAPSULE PO SCH ×3 (06:38→22:17)
[2022-02-15] MEDS: INSULIN SLIDING SCALE (NOVOLOG) 1 VIAL SQ SCH ×4 (06:39→22:24)
[2022-02-15 08:39] LABS: BASO % 0.5 % (0-2.0); EOS % 1.3 % (0-4.5); HEMATOCRIT 25.9 % (32.4-45.2); HEMOGLOBIN 8.6 GM/dL (10.7-15.3); LYMPH % 31.4 % (8-40); MCH 25.3 pg (25.7-33.7); MCHC 33.1 g/dl (32.0-36.0); MEAN CELL VOLUME 76.4 fl (80-96); MEAN PLT VOLUME 8.8 fl (7.5-11.1); MONO % 8.1 % (3.8-10.2); NEUT % 58.7 % (42.8-82.8); PLATELET COUNT 336 10^3/uL (134-434); RBC 3.39 M/mm3 (3.60-5.2); RDW 16.4 % (11.6-15.6); WHITE BLOOD COUNT 10.1 K/mm3 (4.0-10.0)
[2022-02-15 08:51] LABS: ALBUMIN 2.2 g/dl (3.4-5.0); CALCIUM 8.8 mg/dL (8.5-10.1)
[2022-02-15 08:52] LABS: BLOOD UREA NITROGEN 15.6 mg/dL (7-18); MAGNESIUM 2.5 mg/dL (1.8-2.4)
[2022-02-15 08:54] LABS: PHOSPHOROUS 3.9 mg/dL (2.5-4.9)
[2022-02-15 08:55] LABS: CREATININE 1.3 mg/dL (0.55-1.3)
[2022-02-15 08:56] LABS: BILIRUBIN,TOTAL 0.2 mg/dL (0.2-1); TOT PROT 6.3 g/dl (6.4-8.2)
[2022-02-15] MEDS: CEFTRIAXONE 2 GM in DEXTROSE 5%-WATER 100 ML IVPB SCH (10:11)
[2022-02-15] MEDS: PANTOPRAZOLE 40 MG TABLET PO SCH (10:12)
[2022-02-15] MEDS: LOSARTAN POTASSIUM 50 MG TABLET PO SCH (10:12)
[2022-02-15] MEDS: ENOXAPARIN NA (PORCINE) 40 MG/0.4 ML DISP.SYRIN SQ SCH (10:12)
[2022-02-15] MEDS: CHLORTHALIDONE 25 MG TABLET PO SCH (10:12)
[2022-02-15] MEDS: ASPIRIN COATED 81 MG TABLET.EC PO SCH (10:12)
[2022-02-15] MEDS: POLYETHYLENE GLYCOL (HEALTHYLAX) 3350 17 GM PACKET PO SCH ×2 (10:12→10:22)
[2022-02-15] MEDS: CARVEDILOL 12.5 MG TABLET (FP) PO SCH ×2 (10:12→22:20)
[2022-02-15] MEDS: LACTOBACILLUS ACIDOPHILUS 1 TABLET PO SCH (10:12)
[2022-02-15] MEDS: amLODIPine BESYLATE 10 MG TABLET (FP) PO SCH (10:12)
[2022-02-15] MEDS: COLLAGENASE CLOSTRIDIUM HIST. 30 GRAMS TUBE TP SCH (10:13)
[2022-02-15] MEDS ORDERED: HEPARIN NA (PORCINE) 5,000 UNITS/ML 1ML VIAL ONE (14:27)
[2022-02-15] MEDS ORDERED: LIDOCAINE HCL 1%, 10 MG/ML (20ML VIAL) ONE (14:27)
[2022-02-15] MEDS: ROSUVASTATIN CA 20 MG TABLET PO SCH (22:17)
[2022-02-16] MEDS: MAG HYDROX/AL HYDROX/SIMETH 30 ML UNIT-DOSE CUP PO SCH ×4 (00:01→17:41)
[2022-02-16] MEDS: INSULIN SLIDING SCALE (NOVOLOG) 1 VIAL SQ SCH ×4 (06:21→22:09)
[2022-02-16] MEDS: INSULIN (LEVEMIR) 100 UNITS/ML UNITS SQ SCH ×2 (06:21→22:06)
[2022-02-16] MEDS: GABAPENTIN 300 MG CAPSULE PO SCH ×3 (06:45→22:06)
[2022-02-16 08:42] LABS: BASO % 0.5 % (0-2.0); EOS % 1.2 % (0-4.5); HEMATOCRIT 29.6 % (32.4-45.2); HEMOGLOBIN 9.3 GM/dL (10.7-15.3); LYMPH % 20.6 % (8-40); MCH 24.1 pg (25.7-33.7); MCHC 31.5 g/dl (32.0-36.0); MEAN CELL VOLUME 76.5 fl (80-96); MEAN PLT VOLUME 9.8 fl (7.5-11.1); MONO % 6.2 % (3.8-10.2); NEUT % 71.5 % (42.8-82.8); PLATELET COUNT 389 10^3/uL (134-434); RBC 3.87 M/mm3 (3.60-5.2); RDW 16.5 % (11.6-15.6); WHITE BLOOD COUNT 11.7 K/mm3 (4.0-10.0)
[2022-02-16 08:49] LABS: INR 0.94 (0.83-1.09); PROTHROMBIN TIME (PATIENT) 10.8 SEC (9.7-13.0)
[2022-02-16] MEDS ORDERED: LIDOCAINE HCL 1%, 10 MG/ML (20ML VIAL) ONE (09:02)
[2022-02-16] MEDS ORDERED: HEPARIN NA (PORCINE) 5,000 UNITS/ML 1ML VIAL ONE ×2 (09:02→09:55)
[2022-02-16 09:03] LABS: ALBUMIN 2.5 g/dl (3.4-5.0); CALCIUM 9.3 mg/dL (8.5-10.1)
[2022-02-16 09:04] LABS: BLOOD UREA NITROGEN 19.1 mg/dL (7-18); MAGNESIUM 2.5 mg/dL (1.8-2.4)
[2022-02-16] MEDS ORDERED: FENTANYL CITRATE/PF 50 MCG/ML VIAL ONE ×4 (09:04→11:05)
[2022-02-16] MEDS ORDERED: MIDAZOLAM HCL 2 MG/2 ML SINGLE DOSE VIAL ONE (09:04)
[2022-02-16] MEDS ORDERED: PROPOFOL 60 ML ONE (09:04)
[2022-02-16 09:06] LABS: CREATININE 1.2 mg/dL (0.55-1.3)
[2022-02-16 09:07] LABS: PHOSPHOROUS 4.7 mg/dL (2.5-4.9)
[2022-02-16 09:08] LABS: BILIRUBIN,TOTAL 0.1 mg/dL (0.2-1); TOT PROT 7.2 g/dl (6.4-8.2)
[2022-02-16] MEDS ORDERED: LACTATED RINGERS SOLUTION 1,000 ML IV SCH (09:15)
[2022-02-16] MEDS ORDERED: ceFAZolin SODIUM 1 GM VIAL ONE ×2 (09:30)
[2022-02-16] MEDS ORDERED: ceFAZolin SODIUM 1 GM VIAL IVPB ONE (09:32)
[2022-02-16] MEDS ORDERED: LIDOCAINE HCL 1%, 10 MG/ML (20ML VIAL) NR ONE (09:37)
[2022-02-16] MEDS ORDERED: ONDANSETRON 4 MG/2 ML VIAL ONE (09:45)
[2022-02-16] MEDS: amLODIPine BESYLATE 10 MG TABLET (FP) PO SCH (10:15)
[2022-02-16] MEDS: PANTOPRAZOLE 40 MG TABLET PO SCH (10:15)
[2022-02-16] MEDS: ASPIRIN COATED 81 MG TABLET.EC PO SCH (10:15)
[2022-02-16] MEDS: LOSARTAN POTASSIUM 50 MG TABLET PO SCH (10:15)
[2022-02-16] MEDS: CEFTRIAXONE 2 GM in DEXTROSE 5%-WATER 100 ML IVPB SCH (10:15)
[2022-02-16] MEDS: CARVEDILOL 12.5 MG TABLET (FP) PO SCH ×2 (10:15→22:05)
[2022-02-16] MEDS: LACTOBACILLUS ACIDOPHILUS 1 TABLET PO SCH (10:15)
[2022-02-16] MEDS: COLLAGENASE CLOSTRIDIUM HIST. 30 GRAMS TUBE TP SCH (10:15)
[2022-02-16] MEDS: POLYETHYLENE GLYCOL (HEALTHYLAX) 3350 17 GM PACKET PO SCH (10:15)
[2022-02-16] MEDS: CHLORTHALIDONE 25 MG TABLET PO SCH (10:15)
[2022-02-16] MEDS ORDERED: MELATONIN 5 MG TABLETS PO PRN (10:40)
[2022-02-16] MEDS ORDERED: ACETAMINOPHEN 325 MG TABLET (FP) PO PRN (10:40)
[2022-02-16] MEDS ORDERED: DEXTROSE 50%-WATER 25 GM/50 ML DISP.SYRIN IVPUSH PRN (10:40)
[2022-02-16] MEDS ORDERED: LOSARTAN POTASSIUM 50 MG TABLET PO ONE (14:00)
[2022-02-16] MEDS ORDERED: amLODIPine BESYLATE 10 MG TABLET (FP) PO ONE (14:00)
[2022-02-16] MEDS: ROSUVASTATIN CA 20 MG TABLET PO SCH (22:05)
[2022-02-17] MEDS: MAG HYDROX/AL HYDROX/SIMETH 30 ML UNIT-DOSE CUP PO SCH ×4 (00:09→18:07)
[2022-02-17] MEDS ORDERED: oxyCODONE HCL 5 MG TABLET PO ONE (03:59)
[2022-02-17] MEDS: GABAPENTIN 300 MG CAPSULE PO SCH ×3 (06:59→21:46)
[2022-02-17] MEDS: INSULIN (LEVEMIR) 100 UNITS/ML UNITS SQ SCH ×2 (07:00→21:47)
[2022-02-17] MEDS: INSULIN SLIDING SCALE (NOVOLOG) 1 VIAL SQ SCH ×4 (07:00→21:47)
[2022-02-17 08:30] LABS: BASO % 0.6 % (0-2.0); EOS % 1.5 % (0-4.5); HEMATOCRIT 27.1 % (32.4-45.2); HEMOGLOBIN 8.6 GM/dL (10.7-15.3); LYMPH % 21.3 % (8-40); MCH 24.6 pg (25.7-33.7); MCHC 31.8 g/dl (32.0-36.0); MEAN CELL VOLUME 77.1 fl (80-96); MEAN PLT VOLUME 9.5 fl (7.5-11.1); MONO % 7.3 % (3.8-10.2); NEUT % 69.3 % (42.8-82.8); PLATELET COUNT 345 10^3/uL (134-434); RBC 3.51 M/mm3 (3.60-5.2); RDW 16.2 % (11.6-15.6); WHITE BLOOD COUNT 11.2 K/mm3 (4.0-10.0)
[2022-02-17 08:48] LABS: CHLORIDE 104 mmol/L (98-107); SODIUM 141 mmol/L (136-145)
[2022-02-17 08:50] LABS: ALBUMIN 2.4 g/dl (3.4-5.0); ANION GAP 7 MMOL/L (8-16); CALCIUM 8.6 mg/dL (8.5-10.1); CO2 31 mmol/L (21-32)
[2022-02-17 08:51] LABS: BLOOD UREA NITROGEN 21.3 mg/dL (7-18); GLUCOSE,RANDOM 200 mg/dL (74-106); MAGNESIUM 2.3 mg/dL (1.8-2.4)
[2022-02-17 08:53] LABS: CREATININE 1.5 mg/dL (0.55-1.3); SGOT/AST 13 U/L (15-37)
[2022-02-17 08:54] LABS: PHOSPHOROUS 3.8 mg/dL (2.5-4.9); SGPT/ALT 14 U/L (13-61)
[2022-02-17 08:55] LABS: BILIRUBIN,TOTAL < 0.1 mg/dL (0.2-1); TOT PROT 6.8 g/dl (6.4-8.2)
[2022-02-17 08:56] LABS: ALK PHOS 54 U/L (45-117)
[2022-02-17] MEDS: CARVEDILOL 12.5 MG TABLET (FP) PO SCH ×2 (09:39→21:46)
[2022-02-17] MEDS: LOSARTAN POTASSIUM 50 MG TABLET PO SCH (09:40)
[2022-02-17] MEDS: PANTOPRAZOLE 40 MG TABLET PO SCH (09:40)
[2022-02-17] MEDS: LACTOBACILLUS ACIDOPHILUS 1 TABLET PO SCH (09:40)
[2022-02-17] MEDS: amLODIPine BESYLATE 10 MG TABLET (FP) PO SCH (09:40)
[2022-02-17] MEDS: ASPIRIN COATED 81 MG TABLET.EC PO SCH (09:40)
[2022-02-17] MEDS: ENOXAPARIN NA (PORCINE) 40 MG/0.4 ML DISP.SYRIN SQ SCH (09:41)
[2022-02-17] MEDS: CHLORTHALIDONE 25 MG TABLET PO SCH (09:41)
[2022-02-17] MEDS: POLYETHYLENE GLYCOL (HEALTHYLAX) 3350 17 GM PACKET PO SCH (09:41)
[2022-02-17] MEDS: CEFTRIAXONE 2 GM in DEXTROSE 5%-WATER 100 ML IVPB SCH (09:42)
[2022-02-17] MEDS ORDERED: COLLAGENASE CLOSTRIDIUM HIST. 30 GRAMS TUBE TP SCH (10:00)
[2022-02-17] MEDS ORDERED: SODIUM CHLORIDE 1,000 ML IV SCH (11:15)
[2022-02-17] MEDS ORDERED: SODIUM CHLORIDE 500 ML IV STA (13:20)
[2022-02-17] MEDS: ROSUVASTATIN CA 20 MG TABLET PO SCH (21:47)
[2022-02-18] MEDS: MAG HYDROX/AL HYDROX/SIMETH 30 ML UNIT-DOSE CUP PO SCH ×4 (01:49→17:35)
[2022-02-18] MEDS: INSULIN (LEVEMIR) 100 UNITS/ML UNITS SQ SCH ×2 (06:53→22:39)
[2022-02-18] MEDS: GABAPENTIN 300 MG CAPSULE PO SCH ×3 (06:53→22:33)
[2022-02-18] MEDS: INSULIN SLIDING SCALE (NOVOLOG) 1 VIAL SQ SCH ×4 (06:53→22:38)
[2022-02-18 07:55] LABS: BASO % 0.4 % (0-2.0); HEMATOCRIT 25.4 % (32.4-45.2); HEMOGLOBIN 8.3 GM/dL (10.7-15.3); LYMPH % 26.6 % (8-40); MCH 24.8 pg (25.7-33.7); MCHC 32.5 g/dl (32.0-36.0); MEAN CELL VOLUME 76.3 fl (80-96); MEAN PLT VOLUME 9.5 fl (7.5-11.1); MONO % 7.9 % (3.8-10.2); NEUT % 63.1 % (42.8-82.8); PLATELET COUNT 303 10^3/uL (134-434); RBC 3.33 M/mm3 (3.60-5.2); RDW 16.4 % (11.6-15.6); WHITE BLOOD COUNT 9.7 K/mm3 (4.0-10.0)
[2022-02-18 08:11] LABS: CALCIUM 8.4 mg/dL (8.5-10.1)
[2022-02-18 08:12] LABS: ALBUMIN 2.1 g/dl (3.4-5.0); BLOOD UREA NITROGEN 23.7 mg/dL (7-18); MAGNESIUM 2.2 mg/dL (1.8-2.4)
[2022-02-18 08:14] LABS: CREATININE 1.2 mg/dL (0.55-1.3)
[2022-02-18 08:15] LABS: PHOSPHOROUS 4.2 mg/dL (2.5-4.9)
[2022-02-18 08:16] LABS: BILIRUBIN,TOTAL 0.4 mg/dL (0.2-1); TOT PROT 6.2 g/dl (6.4-8.2)
[2022-02-18] MEDS: CEFTRIAXONE 2 GM in DEXTROSE 5%-WATER 100 ML IVPB SCH (09:41)
[2022-02-18] MEDS: ENOXAPARIN NA (PORCINE) 40 MG/0.4 ML DISP.SYRIN SQ SCH (09:42)
[2022-02-18] MEDS: ASPIRIN COATED 81 MG TABLET.EC PO SCH (09:43)
[2022-02-18] MEDS: amLODIPine BESYLATE 10 MG TABLET (FP) PO SCH (09:43)
[2022-02-18] MEDS: CARVEDILOL 12.5 MG TABLET (FP) PO SCH ×2 (09:43→22:33)
[2022-02-18] MEDS: PANTOPRAZOLE 40 MG TABLET PO SCH (09:43)
[2022-02-18] MEDS: LACTOBACILLUS ACIDOPHILUS 1 TABLET PO SCH (09:44)
[2022-02-18] MEDS: LOSARTAN POTASSIUM 50 MG TABLET PO SCH (09:44)
[2022-02-18] MEDS: CHLORTHALIDONE 25 MG TABLET PO SCH (09:44)
[2022-02-18] MEDS: POLYETHYLENE GLYCOL (HEALTHYLAX) 3350 17 GM PACKET PO SCH (09:45)
[2022-02-18] MEDS: COLLAGENASE CLOSTRIDIUM HIST. 30 GRAMS TUBE TP SCH (13:56)
[2022-02-18] MEDS ORDERED: ACETAMINOPHEN 325 MG TABLET (FP) PO PRN (16:00)
[2022-02-18] MEDS: ROSUVASTATIN CA 20 MG TABLET PO SCH (22:33)
[2022-02-19] MEDS: MAG HYDROX/AL HYDROX/SIMETH 30 ML UNIT-DOSE CUP PO SCH ×4 (01:55→17:35)
[2022-02-19] MEDS: INSULIN (LEVEMIR) 100 UNITS/ML UNITS SQ SCH ×2 (06:06→22:10)
[2022-02-19] MEDS: GABAPENTIN 300 MG CAPSULE PO SCH ×3 (06:06→22:15)
[2022-02-19] MEDS: INSULIN SLIDING SCALE (NOVOLOG) 1 VIAL SQ SCH ×4 (06:06→22:11)
[2022-02-19] MEDS: ONDANSETRON 4 MG/2 ML VIAL IVPUSH PRN (08:31)
[2022-02-19] MEDS: CEFTRIAXONE 2 GM in DEXTROSE 5%-WATER 100 ML IVPB SCH (09:51)
[2022-02-19] MEDS: ENOXAPARIN NA (PORCINE) 40 MG/0.4 ML DISP.SYRIN SQ SCH (11:49)
[2022-02-19] MEDS: LACTOBACILLUS ACIDOPHILUS 1 TABLET PO SCH (12:16)
[2022-02-19] MEDS: LOSARTAN POTASSIUM 50 MG TABLET PO SCH (12:17)
[2022-02-19] MEDS: ASPIRIN COATED 81 MG TABLET.EC PO SCH (12:17)
[2022-02-19] MEDS: CARVEDILOL 12.5 MG TABLET (FP) PO SCH ×3 (12:17→22:14)
[2022-02-19] MEDS: POLYETHYLENE GLYCOL (HEALTHYLAX) 3350 17 GM PACKET PO SCH (12:17)
[2022-02-19] MEDS: CHLORTHALIDONE 25 MG TABLET PO SCH (12:18)
[2022-02-19] MEDS: COLLAGENASE CLOSTRIDIUM HIST. 30 GRAMS TUBE TP SCH (12:18)
[2022-02-19] MEDS: amLODIPine BESYLATE 10 MG TABLET (FP) PO SCH (12:18)
[2022-02-19] MEDS: PANTOPRAZOLE 40 MG TABLET PO SCH (12:18)
[2022-02-19] MEDS ORDERED: INSULIN (NOVOLOG) ASPART 100 UNITS/ML 10ML VIAL ONE (21:10)
[2022-02-19] MEDS: ROSUVASTATIN CA 20 MG TABLET PO SCH ×2 (22:10→22:15)
[2022-02-20] MEDS: MAG HYDROX/AL HYDROX/SIMETH 30 ML UNIT-DOSE CUP PO SCH ×4 (01:19→17:31)
[2022-02-20] MEDS: GABAPENTIN 300 MG CAPSULE PO SCH ×3 (06:21→23:57)
[2022-02-20] MEDS: INSULIN SLIDING SCALE (NOVOLOG) 1 VIAL SQ SCH ×4 (06:21→23:57)
[2022-02-20 06:35] VITALS: RESP 20
[2022-02-20] MEDS: INSULIN (LEVEMIR) 100 UNITS/ML UNITS SQ SCH ×2 (06:45→23:58)
[2022-02-20] MEDS: CEFTRIAXONE 2 GM in DEXTROSE 5%-WATER 100 ML IVPB SCH (11:06)
[2022-02-20] MEDS: ENOXAPARIN NA (PORCINE) 40 MG/0.4 ML DISP.SYRIN SQ SCH (11:06)
[2022-02-20] MEDS: CARVEDILOL 12.5 MG TABLET (FP) PO SCH ×2 (11:14→23:57)
[2022-02-20] MEDS: LACTOBACILLUS ACIDOPHILUS 1 TABLET PO SCH (11:14)
[2022-02-20] MEDS: ASPIRIN COATED 81 MG TABLET.EC PO SCH (11:14)
[2022-02-20] MEDS: POLYETHYLENE GLYCOL (HEALTHYLAX) 3350 17 GM PACKET PO SCH (11:14)
[2022-02-20] MEDS: LOSARTAN POTASSIUM 50 MG TABLET PO SCH (11:14)
[2022-02-20] MEDS: PANTOPRAZOLE 40 MG TABLET PO SCH (11:15)
[2022-02-20] MEDS: CHLORTHALIDONE 25 MG TABLET PO SCH (11:15)
[2022-02-20] MEDS: amLODIPine BESYLATE 10 MG TABLET (FP) PO SCH (11:15)
[2022-02-20 12:57] LABS: BASO % 1.1 % (0-2.0); EOS % 1.3 % (0-4.5); HEMATOCRIT 25.7 % (32.4-45.2); HEMOGLOBIN 8.4 GM/dL (10.7-15.3); LYMPH % 27.7 % (8-40); MCH 24.5 pg (25.7-33.7); MCHC 32.5 g/dl (32.0-36.0); MEAN CELL VOLUME 75.3 fl (80-96); MEAN PLT VOLUME 9.6 fl (7.5-11.1); MONO % 6.3 % (3.8-10.2); NEUT % 63.6 % (42.8-82.8); PLATELET COUNT 256 10^3/uL (134-434); RBC 3.42 M/mm3 (3.60-5.2); RDW 16.2 % (11.6-15.6); WHITE BLOOD COUNT 12.7 K/mm3 (4.0-10.0)
[2022-02-20 13:31] LABS: ALBUMIN 2.3 g/dl (3.4-5.0); BLOOD UREA NITROGEN 20.7 mg/dL (7-18); CALCIUM 8.9 mg/dL (8.5-10.1)
[2022-02-20 13:35] LABS: BILIRUBIN,TOTAL 0.1 mg/dL (0.2-1)
[2022-02-20 13:36] LABS: TOT PROT 7.1 g/dl (6.4-8.2)
[2022-02-20] MEDS: oxyCODONE HCL 5 MG TABLET PO PRN ×2 (17:16→23:56)
[2022-02-20] MEDS: COLLAGENASE CLOSTRIDIUM HIST. 30 GRAMS TUBE TP SCH (18:54)
[2022-02-20] MEDS: ROSUVASTATIN CA 20 MG TABLET PO SCH (23:57)
[2022-02-21] MEDS: GABAPENTIN 300 MG CAPSULE PO SCH ×3 (00:07→15:36)
[2022-02-21] MEDS: ROSUVASTATIN CA 20 MG TABLET PO SCH (00:08)
[2022-02-21] MEDS: MAG HYDROX/AL HYDROX/SIMETH 30 ML UNIT-DOSE CUP PO SCH ×2 (00:08→05:36)
[2022-02-21] MEDS: INSULIN SLIDING SCALE (NOVOLOG) 1 VIAL SQ SCH ×2 (06:36→15:35)
[2022-02-21] MEDS: INSULIN (LEVEMIR) 100 UNITS/ML UNITS SQ SCH (06:36)
[2022-02-21] MEDS: PANTOPRAZOLE 40 MG TABLET PO SCH (09:25)
[2022-02-21] MEDS: CEFTRIAXONE 2 GM in DEXTROSE 5%-WATER 100 ML IVPB SCH (09:25)
[2022-02-21] MEDS: LACTOBACILLUS ACIDOPHILUS 1 TABLET PO SCH (09:25)
[2022-02-21] MEDS: ONDANSETRON 4 MG/2 ML VIAL IVPUSH PRN (09:32)
[2022-02-21 10:51] LABS: BASO % 0.5 % (0-2.0); EOS % 1.5 % (0-4.5); HEMATOCRIT 26.9 % (32.4-45.2); HEMOGLOBIN 8.6 GM/dL (10.7-15.3); LYMPH % 30.2 % (8-40); MCH 24.2 pg (25.7-33.7); MCHC 32.1 g/dl (32.0-36.0); MEAN CELL VOLUME 75.3 fl (80-96); MEAN PLT VOLUME 9.1 fl (7.5-11.1); NEUT % 60.8 % (42.8-82.8); PLATELET COUNT 338 10^3/uL (134-434); RBC 3.57 M/mm3 (3.60-5.2); RDW 15.9 % (11.6-15.6); WHITE BLOOD COUNT 7.6 K/mm3 (4.0-10.0)
[2022-02-21 11:24] LABS: ALBUMIN 2.2 g/dl (3.4-5.0); BLOOD UREA NITROGEN 14.2 mg/dL (7-18); CALCIUM 8.8 mg/dL (8.5-10.1); MAGNESIUM 2.1 mg/dL (1.8-2.4)
[2022-02-21 11:27] LABS: CREATININE 0.8 mg/dL (0.55-1.3)
[2022-02-21 11:29] LABS: BILIRUBIN,TOTAL 0.4 mg/dL (0.2-1)
[2022-02-21 11:31] LABS: TOT PROT 6.6 g/dl (6.4-8.2)
[2022-02-21 14:02] VITALS: BP 148/60; PULSE 80; TEMP 98.9
[2022-02-21] MEDS: POLYETHYLENE GLYCOL (HEALTHYLAX) 3350 17 GM PACKET PO SCH (15:34)
[2022-02-21] MEDS: ASPIRIN COATED 81 MG TABLET.EC PO SCH (15:34)
[2022-02-21] MEDS: CARVEDILOL 12.5 MG TABLET (FP) PO SCH (15:34)
[2022-02-21] MEDS: LOSARTAN POTASSIUM 50 MG TABLET PO SCH (15:34)
[2022-02-21] MEDS: CHLORTHALIDONE 25 MG TABLET PO SCH (15:34)
[2022-02-21] MEDS: COLLAGENASE CLOSTRIDIUM HIST. 30 GRAMS TUBE TP SCH (15:35)
[2022-02-21] MEDS: amLODIPine BESYLATE 10 MG TABLET (FP) PO SCH (15:35)
[2022-02-21] MEDS: ENOXAPARIN NA (PORCINE) 40 MG/0.4 ML DISP.SYRIN SQ SCH (15:35)
== END 2022-02-21 16:45 | DRG 380 ==
LOC: JER 20:18 → JERBED 01-30 04:53 → J8W 01-30 11:17 → J4W 02-08 18:36 → J7W 02-18 02:34
PROVIDERS: ADMIT Internal Medicine; ATTEND Internal Medicine
PROC: 0HBNXZX Excision of Left Foot Skin, External Approach, Diagnostic (ICD-10-PCS; 2022-02-06)
PROC: 0QBM3ZX Excision of Left Tarsal, Percutaneous Approach, Diagnostic (ICD-10-PCS; principal; 2022-02-06 09:30)
PROC: B40DYZZ Plain Radiography of Aorta and Bilateral Lower Extremity Arteries using Other Contrast (ICD-10-PCS; 2022-02-16)
PROC: B40GYZZ Plain Radiography of Left Lower Extremity Arteries using Other Contrast (ICD-10-PCS; 2022-02-16)
PROC: 02HV33Z Insertion of Infusion Device into Superior Vena Cava, Percutaneous Approach (ICD-10-PCS; 2022-02-17)
PROC: B548ZZA Ultrasonography of Superior Vena Cava, Guidance (ICD-10-PCS; 2022-02-17)
DX: E11.69 Type 2 diabetes mellitus with other specified complication (principal); E11.621 Type 2 diabetes mellitus with foot ulcer; L97.418 Non-pressure chronic ulcer of right heel and midfoot with other specified severity; L97.528 Non-pressure chronic ulcer of other part of left foot with other specified severity; E78.5 Hyperlipidemia, unspecified; E11.51 Type 2 diabetes mellitus with diabetic peripheral angiopathy without gangrene; E11.42 Type 2 diabetes mellitus with diabetic polyneuropathy; M86.68 Other chronic osteomyelitis, other site; S90.32XA Contusion of left foot, initial encounter; I12.9 Hypertensive chronic kidney disease with stage 1 through stage 4 chronic kidney disease, or unspecified chronic kidney disease; E11.22 Type 2 diabetes mellitus with diabetic chronic kidney disease; N18.9 Chronic kidney disease, unspecified; E11.65 Type 2 diabetes mellitus with hyperglycemia; I24.8 Other forms of acute ischemic heart disease; E66.9 Obesity, unspecified; Z68.33 Body mass index [BMI] 33.0-33.9, adult; X58.XXXA Exposure to other specified factors, initial encounter; Y93.89 Activity, other specified; Y92.098 Other place in other non-institutional residence as the place of occurrence of the external cause
CPT/HCPCS: 36415; 36569; 73630-TC-LT; 73630-TC-RT-FY; 73718-TC-RT; 76000-TC-FY; 78452-TC; 80048; 80053; 80061; 82728; 82962; 83036; 83540; 83550; 83735; 84100; 84484; 84702; 85025; 85045; 85610; 85651; 85730; 86140; 86850; 86900; 86901; 87040; 87045; 87046; 87070; 87075; 87205; 87324; 87449; 88305-TC; 93005; 93010; 93017; 93306-TC; 93925-TC; 93970-TC; 94760; 97116-GP; 97161-GP; 99285-25; A9502; C1760; C9803-CS; G0480; J1644; J2785; U0003; U0005

== ENCOUNTER 2022-05-14 03:39 | Inpatient (IN) | payer OTHER ==
[2022-05-14] MEDS ORDERED: KETOROLAC TROMETHAMINE 30 MG/1 ML VIAL IM ONE (04:24)
[2022-05-14] MEDS ORDERED: ACETAMINOPHEN 500 MG TABLET (FP) PO ONE (04:43)
[2022-05-14] MEDS ORDERED: LIDOCAINE 5% TOPICAL PATCH TP ONE (04:44)
[2022-05-14] MEDS ORDERED: METHOCARBAMOL 750 MG TAB PO ONE (04:44)
[2022-05-14] MEDS ORDERED: ACETAMINOPHEN 325 MG TABLET (FP) ONE (04:57)
[2022-05-14] MEDS ORDERED: METHOCARBAMOL 500 MG TABLET ONE (04:57)
[2022-05-14] MEDS ORDERED: LIDOCAINE 5% TOPICAL PATCH ONE (04:57)
[2022-05-14] MEDS ORDERED: KETOROLAC TROMETHAMINE 30 MG/1 ML VIAL ONE (04:58)
[2022-05-14] MEDS ORDERED: diazePAM 5 MG TABLET PO ONE (06:50)
[2022-05-14] MEDS ORDERED: diazePAM 5 MG TABLET ONE (06:59)
[2022-05-14 12:27] LABS: BASO % 0.5 % (0-2.0); EOS % 0.8 % (0-4.5); HEMATOCRIT 34.9 % (32.4-45.2); HEMOGLOBIN 11.3 GM/dL (10.7-15.3); MCH 23.3 pg (25.7-33.7); MCHC 32.3 g/dl (32.0-36.0); MEAN CELL VOLUME 72.3 fl (80-96); MEAN PLT VOLUME 9.2 fl (7.5-11.1); MONO % 4.3 % (3.8-10.2); NEUT % 71.4 % (42.8-82.8); PLATELET COUNT 393 10^3/uL (134-434); RBC 4.82 M/mm3 (3.60-5.2); WHITE BLOOD COUNT 10.1 K/mm3 (4.0-10.0)
[2022-05-14 12:33] LABS: EPI CELLS 5 /uL (0-25.1); HYALINE CASTS 0 /uL (0-3.1); URINE APPEARANCE CLEAR; URINE BACTERIA 10 /uL (0-1359); URINE BILIRUBIN NEGATIVE (NEGATIVE); URINE COLOR YELLOW; URINE GLUCOSE (UA) 3+ (NEGATIVE); URINE KETONE NEGATIVE (NEGATIVE); URINE LEUK ESTERASE NEGATIVE (NEGATIVE); URINE NITRITE NEGATIVE (NEGATIVE); URINE PROTEIN 3+ (NEGATIVE); URINE RBC 10 /uL (0-23.9); URINE UROBILINOGEN 0.2 mg/dL (0.2-1.0); URINE WBC 3 /uL (0-25.8)
[2022-05-14 12:40] LABS: ALBUMIN 2.6 g/dl (3.4-5.0); CALCIUM 8.8 mg/dL (8.5-10.1)
[2022-05-14 12:41] LABS: BLOOD UREA NITROGEN 18.2 mg/dL (7-18)
[2022-05-14 12:44] LABS: CREATININE 1.1 mg/dL (0.55-1.3); HCG,QUALITATIVE URINE Negative
[2022-05-14 12:45] LABS: BILIRUBIN,TOTAL 0.2 mg/dL (0.2-1); TOT PROT 7.1 g/dl (6.4-8.2)
[2022-05-14] MEDS ORDERED: ACETAMINOPHEN 1000 MG/100 ML BAG IVPB PRN (16:49)
[2022-05-14] MEDS ORDERED: LIDOCAINE PATCH REMOVAL MC ONE (17:00)
[2022-05-14] MEDS ORDERED: ACETAMINOPHEN INJECTION 100 ML IVPB ONE ×2 (17:17→23:21)
[2022-05-14] MEDS: ACETAMINOPHEN 1000 MG/100 ML BAG IVPB SCH ×2 (17:45→23:22)
[2022-05-14] MEDS: DORZOLAMIDE 2% HCL OPHTHALMIC SOLUTION 10 ML BOTTLE OU SCH (22:42)
[2022-05-14] MEDS: TIMOLOL 0.5% OPHTHALMIC SOL 5 ML BOTTLE OU SCH (22:42)
[2022-05-14] MEDS ORDERED: ROSUVASTATIN CA 20 MG TABLET ONE (23:21)
[2022-05-14] MEDS ORDERED: HEPARIN NA (PORCINE) 5,000 UNITS/ML 1ML VIAL ONE (23:21)
[2022-05-14] MEDS: HEPARIN NA (PORCINE) 5,000 UNITS/ML 1ML VIAL SQ SCH (23:22)
[2022-05-14] MEDS: ROSUVASTATIN CA 20 MG TABLET PO SCH (23:22)
[2022-05-14] MEDS: INSULIN (LEVEMIR) 100 UNITS/ML UNITS SQ SCH (23:22)
[2022-05-14] MEDS: LIDOCAINE PATCH REMOVAL MC SCH (23:22)
[2022-05-14] MEDS: INSULIN SLIDING SCALE (NOVOLOG) 1 VIAL SQ SCH (23:22)
[2022-05-15] MEDS ORDERED: LIDOCAINE 5% TOPICAL PATCH TP ONE (06:00)
[2022-05-15] MEDS ORDERED: ASPIRIN COATED 81 MG TABLET.EC ONE (08:56)
[2022-05-15] MEDS ORDERED: amLODIPine BESYLATE 10 MG TABLET (FP) ONE (08:56)
[2022-05-15] MEDS ORDERED: HEPARIN NA (PORCINE) 5,000 UNITS/ML 1ML VIAL ONE ×2 (08:57→14:05)
[2022-05-15] MEDS ORDERED: ACETAMINOPHEN INJECTION 100 ML IVPB ONE ×2 (08:57→11:45)
[2022-05-15] MEDS: ACETAMINOPHEN 1000 MG/100 ML BAG IVPB SCH ×2 (09:34→12:07)
[2022-05-15] MEDS: HEPARIN NA (PORCINE) 5,000 UNITS/ML 1ML VIAL SQ SCH ×3 (09:36→22:43)
[2022-05-15] MEDS: INSULIN SLIDING SCALE (NOVOLOG) 1 VIAL SQ SCH ×4 (09:36→22:52)
[2022-05-15] MEDS: amLODIPine BESYLATE 10 MG TABLET (FP) PO SCH (09:37)
[2022-05-15] MEDS: ASPIRIN COATED 81 MG TABLET.EC PO SCH (09:37)
[2022-05-15] MEDS ORDERED: LIDOCAINE 5% TOPICAL PATCH ONE (09:47)
[2022-05-15] MEDS ORDERED: ONDANSETRON 4 MG/2 ML VIAL IVPUSH PRN (10:42)
[2022-05-15] MEDS ORDERED: LOSARTAN POTASSIUM 50 MG TABLET ONE (11:13)
[2022-05-15] MEDS: TIMOLOL 0.5% OPHTHALMIC SOL 5 ML BOTTLE OU SCH ×2 (11:25→22:44)
[2022-05-15] MEDS: LOSARTAN POTASSIUM 50 MG TABLET PO SCH (11:25)
[2022-05-15] MEDS: DORZOLAMIDE 2% HCL OPHTHALMIC SOLUTION 10 ML BOTTLE OU SCH ×2 (11:25→22:44)
[2022-05-15] MEDS ORDERED: ONDANSETRON 4 MG/2 ML VIAL ONE (11:45)
[2022-05-15] MEDS: CHLORTHALIDONE 25 MG TABLET PO SCH (12:07)
[2022-05-15] MEDS ORDERED: GABAPENTIN 300 MG CAPSULE ONE ×2 (14:04→18:22)
[2022-05-15] MEDS: GABAPENTIN 300 MG CAPSULE PO SCH ×3 (14:19→22:43)
[2022-05-15] MEDS ORDERED: KETOROLAC TROMETHAMINE 60 MG/2 ML VIAL ONE (14:23)
[2022-05-15] MEDS ORDERED: KETOROLAC TROMETHAMINE 60 MG/2 ML VIAL IM ONE (14:30)
[2022-05-15 21:15] VITALS: BMI 29.0
[2022-05-15] MEDS: ROSUVASTATIN CA 20 MG TABLET PO SCH (22:43)
[2022-05-15] MEDS: INSULIN (LEVEMIR) 100 UNITS/ML UNITS SQ SCH (22:54)
[2022-05-15] MEDS: LIDOCAINE PATCH REMOVAL MC SCH (22:56)
[2022-05-16] MEDS ORDERED: ACETAMINOPHEN 1000 MG/100 ML BAG IVPB ONE (02:33)
[2022-05-16] MEDS: HEPARIN NA (PORCINE) 5,000 UNITS/ML 1ML VIAL SQ SCH ×3 (06:43→21:44)
[2022-05-16] MEDS: GABAPENTIN 300 MG CAPSULE PO SCH ×3 (06:43→21:45)
[2022-05-16] MEDS: INSULIN SLIDING SCALE (NOVOLOG) 1 VIAL SQ SCH ×4 (06:48→22:00)
[2022-05-16] MEDS: LOSARTAN POTASSIUM 50 MG TABLET PO SCH ×2 (09:01→09:07)
[2022-05-16] MEDS: amLODIPine BESYLATE 10 MG TABLET (FP) PO SCH ×2 (09:01→09:08)
[2022-05-16] MEDS: CHLORTHALIDONE 25 MG TABLET PO SCH ×2 (09:01→09:08)
[2022-05-16] MEDS: ASPIRIN COATED 81 MG TABLET.EC PO SCH (09:01)
[2022-05-16] MEDS: DORZOLAMIDE 2% HCL OPHTHALMIC SOLUTION 10 ML BOTTLE OU SCH ×2 (09:02→21:46)
[2022-05-16] MEDS: TIMOLOL 0.5% OPHTHALMIC SOL 5 ML BOTTLE OU SCH ×3 (09:02→21:46)
[2022-05-16] MEDS ORDERED: ACETAMINOPHEN 1000 MG/100 ML BAG IVPB PRN (14:44)
[2022-05-16] MEDS ORDERED: ACETAMINOPHEN 325 MG TABLET (FP) PO SCH (18:30)
[2022-05-16] MEDS: ACETAMINOPHEN 325 MG TABLET (FP) PO SCH (19:58)
[2022-05-16] MEDS ORDERED: KETOROLAC TROMETHAMINE 30 MG/1 ML VIAL IVPUSH ONE (20:34)
[2022-05-16] MEDS: ROSUVASTATIN CA 20 MG TABLET PO SCH (21:44)
[2022-05-16] MEDS: POLYETHYLENE GLYCOL (HEALTHYLAX) 3350 17 GM PACKET PO SCH (21:44)
[2022-05-16] MEDS: DOCUSATE SODIUM 100 MG CAPSULE (FP) PO SCH (21:44)
[2022-05-16] MEDS: LIDOCAINE PATCH REMOVAL MC SCH (21:45)
[2022-05-16] MEDS: INSULIN (LEVEMIR) 100 UNITS/ML UNITS SQ SCH (21:59)
[2022-05-17] MEDS: ACETAMINOPHEN 325 MG TABLET (FP) PO SCH ×4 (00:28→18:42)
[2022-05-17] MEDS: DEXTROSE 5%-0.45% SALINE 1,000 ML IV SCH ×2 (00:31→16:57)
[2022-05-17] MEDS: DOCUSATE SODIUM 100 MG CAPSULE (FP) PO SCH ×3 (06:01→21:36)
[2022-05-17] MEDS: HEPARIN NA (PORCINE) 5,000 UNITS/ML 1ML VIAL SQ SCH ×2 (06:01→14:04)
[2022-05-17] MEDS: GABAPENTIN 300 MG CAPSULE PO SCH ×3 (06:02→21:37)
[2022-05-17] MEDS: INSULIN SLIDING SCALE (NOVOLOG) 1 VIAL SQ SCH ×4 (06:11→22:29)
[2022-05-17] MEDS ORDERED: diazePAM 2 MG TABLET PO ONE ×2 (09:10→13:13)
[2022-05-17] MEDS: LOSARTAN POTASSIUM 50 MG TABLET PO SCH (09:21)
[2022-05-17] MEDS: ASPIRIN COATED 81 MG TABLET.EC PO SCH (09:21)
[2022-05-17] MEDS: TIMOLOL 0.5% OPHTHALMIC SOL 5 ML BOTTLE OU SCH ×2 (09:21→21:39)
[2022-05-17] MEDS: amLODIPine BESYLATE 10 MG TABLET (FP) PO SCH (09:21)
[2022-05-17] MEDS: CHLORTHALIDONE 25 MG TABLET PO SCH (09:21)
[2022-05-17] MEDS: DORZOLAMIDE 2% HCL OPHTHALMIC SOLUTION 10 ML BOTTLE OU SCH ×2 (09:22→21:38)
[2022-05-17] MEDS: POLYETHYLENE GLYCOL (HEALTHYLAX) 3350 17 GM PACKET PO SCH ×2 (09:25→21:37)
[2022-05-17] MEDS: oxyCODONE HCL 5 MG TABLET PO PRN ×2 (11:16→22:26)
[2022-05-17 12:29] LABS: BASO % 0.3 % (0-2.0); EOS % 1.6 % (0-4.5); HEMATOCRIT 31.3 % (32.4-45.2); HEMOGLOBIN 10.1 GM/dL (10.7-15.3); LYMPH % 31.7 % (8-40); MCH 23.3 pg (25.7-33.7); MCHC 32.2 g/dl (32.0-36.0); MEAN CELL VOLUME 72.4 fl (80-96); MEAN PLT VOLUME 8.9 fl (7.5-11.1); MONO % 6.5 % (3.8-10.2); NEUT % 59.9 % (42.8-82.8); PLATELET COUNT 378 10^3/uL (134-434); RBC 4.32 M/mm3 (3.60-5.2); RDW 16.5 % (11.6-15.6)
[2022-05-17 13:03] LABS: CALCIUM 8.5 mg/dL (8.5-10.1)
[2022-05-17 13:04] LABS: ALBUMIN 2.3 g/dl (3.4-5.0); MAGNESIUM 1.9 mg/dL (1.8-2.4)
[2022-05-17 13:07] LABS: CREATININE 1.5 mg/dL (0.55-1.3)
[2022-05-17 13:09] LABS: BILIRUBIN,TOTAL 0.2 mg/dL (0.2-1); TOT PROT 6.1 g/dl (6.4-8.2)
[2022-05-17] MEDS ORDERED: LIDOCAINE 5% TOPICAL PATCH TP ONE (16:30)
[2022-05-17] MEDS: KCL 10 MEQ IVPB 10 MEQ/100 ML INFUS.BAG IVPB SCH ×2 (16:41→17:30)
[2022-05-17 17:47] LABS: INR 0.95 (0.83-1.09)
[2022-05-17] MEDS: ROSUVASTATIN CA 20 MG TABLET PO SCH (21:37)
[2022-05-17] MEDS ORDERED: LIDOCAINE PATCH REMOVAL MC SCH (22:00)
[2022-05-17] MEDS: LIDOCAINE PATCH REMOVAL MC SCH (22:08)
[2022-05-17] MEDS: INSULIN (LEVEMIR) 100 UNITS/ML UNITS SQ SCH (22:16)
[2022-05-18] MEDS: ACETAMINOPHEN 325 MG TABLET (FP) PO SCH ×3 (00:13→11:08)
[2022-05-18] MEDS: DEXTROSE 5%-0.45% SALINE 1,000 ML IV SCH (00:14)
[2022-05-18] MEDS: GABAPENTIN 300 MG CAPSULE PO SCH ×3 (05:45→22:53)
[2022-05-18] MEDS: DOCUSATE SODIUM 100 MG CAPSULE (FP) PO SCH ×3 (05:45→22:51)
[2022-05-18] MEDS ORDERED: INSULIN (NOVOLOG) ASPART 100 UNITS/ML 10ML VIAL SQ ONE (06:31)
[2022-05-18] MEDS: INSULIN SLIDING SCALE (NOVOLOG) 1 VIAL SQ SCH ×4 (06:37→23:34)
[2022-05-18] MEDS: LOSARTAN POTASSIUM 50 MG TABLET PO SCH ×3 (07:24→09:52)
[2022-05-18] MEDS: oxyCODONE HCL 5 MG TABLET PO PRN (07:24)
[2022-05-18] MEDS ORDERED: MIDAZOLAM HCL 2 MG/2 ML SINGLE DOSE VIAL ONE (08:25)
[2022-05-18] MEDS ORDERED: ROCURONIUM BROMIDE 50 MG/5 ML SYRINGE ONE (08:25)
[2022-05-18] MEDS ORDERED: PROPOFOL 20 ML ONE (08:25)
[2022-05-18] MEDS ORDERED: LIDOCAINE 1%/EPI 1:100000 (20 ML MULTI DOSE VIAL) IJ ONE ×2 (08:36→09:57)
[2022-05-18] MEDS ORDERED: VANCOMYCIN 1 GM in NS (PRE-DOCKED) 1,000 MG/250 ML IVPB ONE ×3 (08:37→11:51)
[2022-05-18] MEDS ORDERED: ceFAZolin SODIUM 1 GM VIAL IVPB ONE ×2 (08:37→10:00)
[2022-05-18 09:13] LABS: BASO % 0.5 % (0-2.0); EOS % 2.4 % (0-4.5); HEMATOCRIT 31.7 % (32.4-45.2); HEMOGLOBIN 10.1 GM/dL (10.7-15.3); LYMPH % 28.3 % (8-40); MCH 23.2 pg (25.7-33.7); MCHC 31.7 g/dl (32.0-36.0); MEAN CELL VOLUME 73.1 fl (80-96); MEAN PLT VOLUME 9.3 fl (7.5-11.1); MONO % 6.1 % (3.8-10.2); NEUT % 62.7 % (42.8-82.8); PLATELET COUNT 376 10^3/uL (134-434); RBC 4.34 M/mm3 (3.60-5.2); WHITE BLOOD COUNT 8.7 K/mm3 (4.0-10.0)
[2022-05-18 09:35] LABS: CREATININE 1.2 mg/dL (0.55-1.3)
[2022-05-18 09:36] LABS: BILIRUBIN,TOTAL 0.2 mg/dL (0.2-1); CALCIUM 8.9 mg/dL (8.5-10.1); TOT PROT 6.5 g/dl (6.4-8.2)
[2022-05-18 09:37] LABS: ALBUMIN 2.4 g/dl (3.4-5.0); BLOOD UREA NITROGEN 33.9 mg/dL (7-18); MAGNESIUM 2.1 mg/dL (1.8-2.4)
[2022-05-18] MEDS: CHLORTHALIDONE 25 MG TABLET PO SCH (09:52)
[2022-05-18] MEDS: amLODIPine BESYLATE 10 MG TABLET (FP) PO SCH (09:52)
[2022-05-18] MEDS: POLYETHYLENE GLYCOL (HEALTHYLAX) 3350 17 GM PACKET PO SCH ×2 (09:52→22:52)
[2022-05-18] MEDS: TIMOLOL 0.5% OPHTHALMIC SOL 5 ML BOTTLE OU SCH ×2 (09:53→22:55)
[2022-05-18] MEDS: DORZOLAMIDE 2% HCL OPHTHALMIC SOLUTION 10 ML BOTTLE OU SCH ×2 (09:53→22:56)
[2022-05-18] MEDS ORDERED: ceFAZolin SODIUM 1 GM VIAL ONE ×3 (09:56→23:23)
[2022-05-18] MEDS ORDERED: VANCOMYCIN 1,000 MG VIAL (RESTRICTED TO ID ONLY) ONE (09:56)
[2022-05-18] MEDS ORDERED: DEXAMETHASONE SOD PHOSPHATE 4 MG/1 ML VIAL ONE (09:56)
[2022-05-18] MEDS ORDERED: ONDANSETRON 4 MG/2 ML VIAL ONE ×2 (09:56→14:14)
[2022-05-18] MEDS ORDERED: TRANEXAMIC ACID 1000 MG/10 ML VIAL ONE (09:56)
[2022-05-18] MEDS ORDERED: COLLAGENASE CLOSTRIDIUM HIST. 30 GRAMS TUBE TP SCH (10:00)
[2022-05-18] MEDS ORDERED: GENTAMICIN SO4 80 MG/2 ML VIAL IVPB ONE ×2 (10:06→12:15)
[2022-05-18] MEDS ORDERED: THROMBIN (BOVINE) 5,000 UNIT VIAL TP ONE ×2 (10:06→11:51)
[2022-05-18] MEDS ORDERED: HYDROGEN PEROXIDE 473 ML PO ONE ×2 (10:07→12:15)
[2022-05-18] MEDS ORDERED: VANCOMYCIN 1 GM in D5W (PRE-DOCKED) 1,000 MG/250 ML IVPB ONE (13:22)
[2022-05-18] MEDS ORDERED: BUPIVACAINE HCL/PF 0.5% (5MG/ML) 10 ML VIAL IJ ONE (13:26)
[2022-05-18] MEDS ORDERED: BUPIVACAINE LIPOSOME/PF (EXPAREL) 266 MG/20 ML VIAL NR ONE (13:26)
[2022-05-18] MEDS ORDERED: ONDANSETRON 4 MG/2 ML VIAL IVPUSH PRN ×3 (14:06→14:59)
[2022-05-18] MEDS ORDERED: LACTATED RINGERS SOLUTION 1,000 ML IV SCH (14:15)
[2022-05-18] MEDS ORDERED: diphenhydrAMINE HCL 25 MG CAPSULE (FP) PO PRN (14:39)
[2022-05-18] MEDS ORDERED: hydrALAZINE HCL 20 MG/ML VIAL IVPUSH ONE (14:46)
[2022-05-18] MEDS ORDERED: LABETALOL HCL 5 MG/1 ML (100MG/20 ML VIAL) IVPUSH PRN (14:46)
[2022-05-18] MEDS ORDERED: hydrALAZINE HCL 20 MG/ML VIAL IVPUSH PRN (14:48)
[2022-05-18] MEDS: ACETAMINOPHEN 1000 MG/100 ML BAG IVPB SCH ×2 (15:36→22:46)
[2022-05-18 15:58] LABS: HEMATOCRIT 29.6 % (32.4-45.2); HEMOGLOBIN 9.4 GM/dL (10.7-15.3); MCH 23.2 pg (25.7-33.7); MCHC 31.9 g/dl (32.0-36.0); MEAN CELL VOLUME 72.7 fl (80-96); MEAN PLT VOLUME 9.1 fl (7.5-11.1); PLATELET COUNT 333 10^3/uL (134-434); RBC 4.07 M/mm3 (3.60-5.2); RDW 16.8 % (11.6-15.6); WHITE BLOOD COUNT 10.1 K/mm3 (4.0-10.0)
[2022-05-18] MEDS: LACTATED RINGERS SOLUTION 1,000 ML/1,000 ML INFUS.BAG IV SCH (16:41)
[2022-05-18] MEDS ORDERED: LIDOCAINE PATCH REMOVAL MC SCH (22:00)
[2022-05-18] MEDS: ROSUVASTATIN CA 20 MG TABLET PO SCH (22:52)
[2022-05-18] MEDS: HEPARIN NA (PORCINE) 5,000 UNITS/ML 1ML VIAL SQ SCH (22:53)
[2022-05-18] MEDS: CEFAZOLIN 1 GM in DEXTROSE 5%-WATER - 50 ML IVPB SCH (23:25)
[2022-05-19] MEDS: ACETAMINOPHEN 1000 MG/100 ML BAG IVPB SCH ×4 (04:09→21:45)
[2022-05-19] MEDS: HEPARIN NA (PORCINE) 5,000 UNITS/ML 1ML VIAL SQ SCH ×3 (05:53→21:20)
[2022-05-19] MEDS: GABAPENTIN 300 MG CAPSULE PO SCH ×3 (05:53→21:19)
[2022-05-19] MEDS: CEFAZOLIN 1 GM in DEXTROSE 5%-WATER - 50 ML IVPB SCH ×3 (05:54→21:46)
[2022-05-19] MEDS: DOCUSATE SODIUM 100 MG CAPSULE (FP) PO SCH ×3 (05:54→21:19)
[2022-05-19] MEDS: oxyCODONE HCL 5 MG TABLET PO PRN (08:02)
[2022-05-19] MEDS: FERROUS SO4 325 MG TABLET (FP) PO SCH (08:06)
[2022-05-19] MEDS ORDERED: oxyCODONE HCL 5 MG TABLET PO PRN (09:00)
[2022-05-19] MEDS: FOLIC ACID 1 MG TABLET (FP) PO SCH (09:23)
[2022-05-19] MEDS: CHLORTHALIDONE 25 MG TABLET PO SCH (09:23)
[2022-05-19] MEDS: LOSARTAN POTASSIUM 50 MG TABLET PO SCH (09:23)
[2022-05-19] MEDS: amLODIPine BESYLATE 10 MG TABLET (FP) PO SCH (09:23)
[2022-05-19] MEDS: POLYETHYLENE GLYCOL (HEALTHYLAX) 3350 17 GM PACKET PO SCH ×2 (09:23→21:20)
[2022-05-19] MEDS: DORZOLAMIDE 2% HCL OPHTHALMIC SOLUTION 10 ML BOTTLE OU SCH ×2 (09:30→21:21)
[2022-05-19] MEDS: TIMOLOL 0.5% OPHTHALMIC SOL 5 ML BOTTLE OU SCH ×2 (09:40→21:21)
[2022-05-19] MEDS ORDERED: diazePAM 2 MG TABLET PO PRN (10:09)
[2022-05-19] MEDS: INSULIN SLIDING SCALE (NOVOLOG) 1 VIAL SQ SCH ×3 (11:24→21:44)
[2022-05-19 12:38] LABS: BASO % 0.3 % (0-2.0); EOS % 0.6 % (0-4.5); HEMATOCRIT 29.3 % (32.4-45.2); HEMOGLOBIN 9.4 GM/dL (10.7-15.3); MCHC 32.1 g/dl (32.0-36.0); MEAN CELL VOLUME 74.7 fl (80-96); MEAN PLT VOLUME 9.4 fl (7.5-11.1); MONO % 5.4 % (3.8-10.2); NEUT % 71.7 % (42.8-82.8); PLATELET COUNT 360 10^3/uL (134-434); RBC 3.93 M/mm3 (3.60-5.2); WHITE BLOOD COUNT 12.5 K/mm3 (4.0-10.0)
[2022-05-19 13:06] LABS: CALCIUM 8.7 mg/dL (8.5-10.1)
[2022-05-19 13:07] LABS: ALBUMIN 2.3 g/dl (3.4-5.0); BLOOD UREA NITROGEN 35.9 mg/dL (7-18)
[2022-05-19 13:10] LABS: CREATININE 1.4 mg/dL (0.55-1.3)
[2022-05-19 13:11] LABS: BILIRUBIN,TOTAL 0.4 mg/dL (0.2-1); TOT PROT 6.1 g/dl (6.4-8.2)
[2022-05-19] MEDS: COLLAGENASE CLOSTRIDIUM HIST. 30 GRAMS TUBE TP SCH (15:26)
[2022-05-19] MEDS: LACTATED RINGERS SOLUTION 1,000 ML/1,000 ML INFUS.BAG IV SCH (15:27)
[2022-05-19] MEDS ORDERED: MINERAL OIL ENEMA 133 ML ENEMA RC ONE (17:16)
[2022-05-19] MEDS: SENNOSIDES 8.6MG TABLET (FP) PO SCH (21:19)
[2022-05-19] MEDS: ROSUVASTATIN CA 20 MG TABLET PO SCH (21:20)
[2022-05-20] MEDS: ACETAMINOPHEN 1000 MG/100 ML BAG IVPB PRN ×3 (03:07→23:20)
[2022-05-20] MEDS: GABAPENTIN 300 MG CAPSULE PO SCH ×3 (06:28→21:54)
[2022-05-20] MEDS: CEFAZOLIN 1 GM in DEXTROSE 5%-WATER - 50 ML IVPB SCH ×3 (06:28→21:52)
[2022-05-20] MEDS: DOCUSATE SODIUM 100 MG CAPSULE (FP) PO SCH ×3 (06:29→21:53)
[2022-05-20] MEDS: POLYETHYLENE GLYCOL (HEALTHYLAX) 3350 17 GM PACKET PO SCH ×3 (06:29→21:54)
[2022-05-20] MEDS: HEPARIN NA (PORCINE) 5,000 UNITS/ML 1ML VIAL SQ SCH ×3 (06:29→21:54)
[2022-05-20] MEDS: INSULIN SLIDING SCALE (NOVOLOG) 1 VIAL SQ SCH ×4 (07:10→21:54)
[2022-05-20] MEDS: TAMSULOSIN HCL 0.4 MG CAP PO SCH (08:10)
[2022-05-20] MEDS: FERROUS SO4 325 MG TABLET (FP) PO SCH (08:10)
[2022-05-20 10:15] LABS: BASO % 0.4 % (0-2.0); EOS % 1.5 % (0-4.5); HEMATOCRIT 26.1 % (32.4-45.2); HEMOGLOBIN 8.6 GM/dL (10.7-15.3); LYMPH % 21.2 % (8-40); MCH 24.1 pg (25.7-33.7); MCHC 33.1 g/dl (32.0-36.0); MONO % 6.8 % (3.8-10.2); NEUT % 70.1 % (42.8-82.8); PLATELET COUNT 272 10^3/uL (134-434); RBC 3.57 M/mm3 (3.60-5.2); RDW 16.9 % (11.6-15.6); WHITE BLOOD COUNT 10.7 K/mm3 (4.0-10.0)
[2022-05-20] MEDS: TIMOLOL 0.5% OPHTHALMIC SOL 5 ML BOTTLE OU SCH ×2 (10:38→21:55)
[2022-05-20] MEDS: DORZOLAMIDE 2% HCL OPHTHALMIC SOLUTION 10 ML BOTTLE OU SCH ×2 (10:38→21:56)
[2022-05-20] MEDS: oxyCODONE HCL 5 MG TABLET PO PRN (10:39)
[2022-05-20] MEDS: CHLORTHALIDONE 25 MG TABLET PO SCH (10:39)
[2022-05-20] MEDS: amLODIPine BESYLATE 10 MG TABLET (FP) PO SCH (10:40)
[2022-05-20] MEDS: LOSARTAN POTASSIUM 50 MG TABLET PO SCH (10:40)
[2022-05-20] MEDS: FOLIC ACID 1 MG TABLET (FP) PO SCH (10:40)
[2022-05-20] MEDS: COLLAGENASE CLOSTRIDIUM HIST. 30 GRAMS TUBE TP SCH (10:41)
[2022-05-20 10:43] LABS: CALCIUM 8.2 mg/dL (8.5-10.1)
[2022-05-20 10:44] LABS: ALBUMIN 2.1 g/dl (3.4-5.0); BLOOD UREA NITROGEN 33.6 mg/dL (7-18); MAGNESIUM 2.1 mg/dL (1.8-2.4)
[2022-05-20 10:47] LABS: CREATININE 1.3 mg/dL (0.55-1.3)
[2022-05-20 10:48] LABS: TOT PROT 5.6 g/dl (6.4-8.2)
[2022-05-20 10:49] LABS: BILIRUBIN,TOTAL 0.2 mg/dL (0.2-1)
[2022-05-20] MEDS: LACTATED RINGERS SOLUTION 1,000 ML/1,000 ML INFUS.BAG IV SCH (16:42)
[2022-05-20] MEDS: ROSUVASTATIN CA 20 MG TABLET PO SCH (21:54)
[2022-05-20] MEDS: SENNOSIDES 8.6MG TABLET (FP) PO SCH (21:55)
[2022-05-21] MEDS: POLYETHYLENE GLYCOL (HEALTHYLAX) 3350 17 GM PACKET PO SCH ×3 (06:06→22:01)
[2022-05-21] MEDS: DOCUSATE SODIUM 100 MG CAPSULE (FP) PO SCH ×3 (06:06→21:58)
[2022-05-21] MEDS: CEFAZOLIN 1 GM in DEXTROSE 5%-WATER - 50 ML IVPB SCH ×3 (06:51→22:00)
[2022-05-21] MEDS: HEPARIN NA (PORCINE) 5,000 UNITS/ML 1ML VIAL SQ SCH ×3 (06:52→21:59)
[2022-05-21] MEDS: GABAPENTIN 300 MG CAPSULE PO SCH ×4 (06:52→21:59)
[2022-05-21] MEDS: INSULIN SLIDING SCALE (NOVOLOG) 1 VIAL SQ SCH ×4 (07:03→22:11)
[2022-05-21] MEDS: amLODIPine BESYLATE 10 MG TABLET (FP) PO SCH (10:04)
[2022-05-21] MEDS: LOSARTAN POTASSIUM 50 MG TABLET PO SCH (10:04)
[2022-05-21] MEDS: CHLORTHALIDONE 25 MG TABLET PO SCH (10:05)
[2022-05-21] MEDS: FOLIC ACID 1 MG TABLET (FP) PO SCH (10:05)
[2022-05-21] MEDS: COLLAGENASE CLOSTRIDIUM HIST. 30 GRAMS TUBE TP SCH (10:05)
[2022-05-21] MEDS: TAMSULOSIN HCL 0.4 MG CAP PO SCH (10:05)
[2022-05-21] MEDS: FERROUS SO4 325 MG TABLET (FP) PO SCH (10:05)
[2022-05-21] MEDS: TIMOLOL 0.5% OPHTHALMIC SOL 5 ML BOTTLE OU SCH ×2 (10:06→22:01)
[2022-05-21] MEDS: DORZOLAMIDE 2% HCL OPHTHALMIC SOLUTION 10 ML BOTTLE OU SCH ×2 (10:06→22:00)
[2022-05-21] MEDS: ACETAMINOPHEN 1000 MG/100 ML BAG IVPB PRN ×2 (11:27→22:04)
[2022-05-21] MEDS: LACTATED RINGERS SOLUTION 1,000 ML/1,000 ML INFUS.BAG IV SCH (16:15)
[2022-05-21] MEDS: ROSUVASTATIN CA 20 MG TABLET PO SCH (21:59)
[2022-05-21] MEDS: SENNOSIDES 8.6MG TABLET (FP) PO SCH (22:00)
[2022-05-22] MEDS: POLYETHYLENE GLYCOL (HEALTHYLAX) 3350 17 GM PACKET PO SCH ×3 (06:22→22:07)
[2022-05-22] MEDS: CEFAZOLIN 1 GM in DEXTROSE 5%-WATER - 50 ML IVPB SCH ×3 (06:22→22:06)
[2022-05-22] MEDS: GABAPENTIN 300 MG CAPSULE PO SCH ×3 (06:22→22:07)
[2022-05-22] MEDS: DOCUSATE SODIUM 100 MG CAPSULE (FP) PO SCH ×3 (06:22→22:07)
[2022-05-22] MEDS: HEPARIN NA (PORCINE) 5,000 UNITS/ML 1ML VIAL SQ SCH ×3 (06:23→22:07)
[2022-05-22] MEDS: INSULIN SLIDING SCALE (NOVOLOG) 1 VIAL SQ SCH ×4 (06:23→22:08)
[2022-05-22] MEDS: ACETAMINOPHEN 1000 MG/100 ML BAG IVPB PRN (09:36)
[2022-05-22] MEDS: amLODIPine BESYLATE 10 MG TABLET (FP) PO SCH (09:37)
[2022-05-22] MEDS: TAMSULOSIN HCL 0.4 MG CAP PO SCH (09:37)
[2022-05-22] MEDS: FERROUS SO4 325 MG TABLET (FP) PO SCH (09:37)
[2022-05-22] MEDS: LOSARTAN POTASSIUM 50 MG TABLET PO SCH (09:38)
[2022-05-22] MEDS: FOLIC ACID 1 MG TABLET (FP) PO SCH (09:38)
[2022-05-22] MEDS: oxyCODONE HCL 5 MG TABLET PO PRN (09:38)
[2022-05-22] MEDS: TIMOLOL 0.5% OPHTHALMIC SOL 5 ML BOTTLE OU SCH ×2 (09:39→22:10)
[2022-05-22] MEDS: DORZOLAMIDE 2% HCL OPHTHALMIC SOLUTION 10 ML BOTTLE OU SCH ×2 (09:39→22:10)
[2022-05-22] MEDS: COLLAGENASE CLOSTRIDIUM HIST. 30 GRAMS TUBE TP SCH (09:39)
[2022-05-22] MEDS: CHLORTHALIDONE 25 MG TABLET PO SCH (09:40)
[2022-05-22] MEDS: CARVEDILOL 6.25 MG TABLET (FP) PO SCH ×2 (14:06→22:07)
[2022-05-22] MEDS: LACTATED RINGERS SOLUTION 1,000 ML/1,000 ML INFUS.BAG IV SCH (17:35)
[2022-05-22] MEDS: ROSUVASTATIN CA 20 MG TABLET PO SCH (22:07)
[2022-05-22] MEDS: SENNOSIDES 8.6MG TABLET (FP) PO SCH (22:07)
[2022-05-22] MEDS: INSULIN (LEVEMIR) 100 UNITS/ML UNITS SQ SCH (22:08)
[2022-05-23] MEDS: GABAPENTIN 300 MG CAPSULE PO SCH ×3 (05:54→21:48)
[2022-05-23] MEDS: HEPARIN NA (PORCINE) 5,000 UNITS/ML 1ML VIAL SQ SCH ×3 (05:54→21:49)
[2022-05-23] MEDS: DOCUSATE SODIUM 100 MG CAPSULE (FP) PO SCH ×3 (05:55→21:50)
[2022-05-23] MEDS: POLYETHYLENE GLYCOL (HEALTHYLAX) 3350 17 GM PACKET PO SCH ×3 (05:55→21:54)
[2022-05-23] MEDS: CEFAZOLIN 1 GM in DEXTROSE 5%-WATER - 50 ML IVPB SCH ×3 (05:55→21:48)
[2022-05-23] MEDS: INSULIN SLIDING SCALE (NOVOLOG) 1 VIAL SQ SCH ×4 (06:15→22:00)
[2022-05-23] MEDS: TAMSULOSIN HCL 0.4 MG CAP PO SCH ×2 (09:41→21:49)
[2022-05-23] MEDS: CHLORTHALIDONE 25 MG TABLET PO SCH (09:41)
[2022-05-23] MEDS: oxyCODONE HCL 5 MG TABLET PO PRN (09:43)
[2022-05-23] MEDS: amLODIPine BESYLATE 10 MG TABLET (FP) PO SCH (09:44)
[2022-05-23] MEDS: CARVEDILOL 6.25 MG TABLET (FP) PO SCH ×2 (09:44→21:48)
[2022-05-23] MEDS: FOLIC ACID 1 MG TABLET (FP) PO SCH (09:44)
[2022-05-23] MEDS: LOSARTAN POTASSIUM 50 MG TABLET PO SCH (09:44)
[2022-05-23] MEDS: COLLAGENASE CLOSTRIDIUM HIST. 30 GRAMS TUBE TP SCH (09:45)
[2022-05-23] MEDS: FERROUS SO4 325 MG TABLET (FP) PO SCH (09:48)
[2022-05-23] MEDS: TIMOLOL 0.5% OPHTHALMIC SOL 5 ML BOTTLE OU SCH ×2 (09:53→21:49)
[2022-05-23] MEDS: DORZOLAMIDE 2% HCL OPHTHALMIC SOLUTION 10 ML BOTTLE OU SCH ×2 (09:53→21:50)
[2022-05-23] MEDS: LACTATED RINGERS SOLUTION 1,000 ML/1,000 ML INFUS.BAG IV SCH (14:44)
[2022-05-23] MEDS: ROSUVASTATIN CA 20 MG TABLET PO SCH (21:48)
[2022-05-23] MEDS: SENNOSIDES 8.6MG TABLET (FP) PO SCH (21:49)
[2022-05-23] MEDS: INSULIN (LEVEMIR) 100 UNITS/ML UNITS SQ SCH (21:59)
[2022-05-24 01:40] VITALS: RESP 18
[2022-05-24] MEDS: CEFAZOLIN 1 GM in DEXTROSE 5%-WATER - 50 ML IVPB SCH (06:19)
[2022-05-24] MEDS: GABAPENTIN 300 MG CAPSULE PO SCH (06:20)
[2022-05-24] MEDS: HEPARIN NA (PORCINE) 5,000 UNITS/ML 1ML VIAL SQ SCH (06:20)
[2022-05-24] MEDS: POLYETHYLENE GLYCOL (HEALTHYLAX) 3350 17 GM PACKET PO SCH (06:20)
[2022-05-24] MEDS: DOCUSATE SODIUM 100 MG CAPSULE (FP) PO SCH (06:20)
[2022-05-24] MEDS: INSULIN SLIDING SCALE (NOVOLOG) 1 VIAL SQ SCH ×2 (06:25→12:27)
[2022-05-24 09:19] VITALS: BP 125/64; PULSE 95; TEMP 99.6
[2022-05-24] MEDS: FERROUS SO4 325 MG TABLET (FP) PO SCH (09:29)
[2022-05-24] MEDS: LOSARTAN POTASSIUM 50 MG TABLET PO SCH (09:30)
[2022-05-24] MEDS: TAMSULOSIN HCL 0.4 MG CAP PO SCH (09:30)
[2022-05-24] MEDS: FOLIC ACID 1 MG TABLET (FP) PO SCH (09:30)
[2022-05-24] MEDS: CHLORTHALIDONE 25 MG TABLET PO SCH (09:30)
[2022-05-24] MEDS: oxyCODONE HCL 5 MG TABLET PO PRN (09:30)
[2022-05-24] MEDS: amLODIPine BESYLATE 10 MG TABLET (FP) PO SCH (09:30)
[2022-05-24] MEDS: CARVEDILOL 6.25 MG TABLET (FP) PO SCH (09:30)
[2022-05-24] MEDS: COLLAGENASE CLOSTRIDIUM HIST. 30 GRAMS TUBE TP SCH (09:36)
[2022-05-24] MEDS: TIMOLOL 0.5% OPHTHALMIC SOL 5 ML BOTTLE OU SCH (09:37)
[2022-05-24] MEDS: DORZOLAMIDE 2% HCL OPHTHALMIC SOLUTION 10 ML BOTTLE OU SCH (09:37)
== END 2022-05-24 12:53 | DRG 304 ==
LOC: JER 03:39 → JERBED 10:25 → OBSVTOIN 15:48 → J8W 05-15 20:31 → J4W 05-18 17:32
PROVIDERS: ADMIT Internal Medicine; ATTEND Nurse Practitioner Acute Care
PROC: 0SG3071 Fusion of Lumbosacral Joint with Autologous Tissue Substitute, Posterior Approach, Posterior Column, Open Approach (ICD-10-PCS; 2022-05-18)
PROC: 0SB40ZZ Excision of Lumbosacral Disc, Open Approach (ICD-10-PCS; 2022-05-18)
PROC: 4A11X4G Monitoring of Peripheral Nervous Electrical Activity, Intraoperative, External Approach (ICD-10-PCS; 2022-05-18)
PROC: 0SG30AJ Fusion of Lumbosacral Joint with Interbody Fusion Device, Posterior Approach, Anterior Column, Open Approach (ICD-10-PCS; principal; 2022-05-18 09:00)
DX: M48.07 Spinal stenosis, lumbosacral region (principal); M51.27 Other intervertebral disc displacement, lumbosacral region; E11.42 Type 2 diabetes mellitus with diabetic polyneuropathy; E11.621 Type 2 diabetes mellitus with foot ulcer; I10 Essential (primary) hypertension; L97.418 Non-pressure chronic ulcer of right heel and midfoot with other specified severity; E11.51 Type 2 diabetes mellitus with diabetic peripheral angiopathy without gangrene; F11.20 Opioid dependence, uncomplicated; E78.00 Pure hypercholesterolemia, unspecified; M54.42 Lumbago with sciatica, left side; H26.8 Other specified cataract; N32.89 Other specified disorders of bladder; R29.898 Other symptoms and signs involving the musculoskeletal system; K59.00 Constipation, unspecified; L97.528 Non-pressure chronic ulcer of other part of left foot with other specified severity; G83.4 Cauda equina syndrome; I47.20 Ventricular tachycardia, unspecified; Z99.3 Dependence on wheelchair
CPT/HCPCS: 0241U-QW; 36415; 72131-TC; 72147-TC; 72149-TC; 76000-TC-FY; 80053; 81003; 82550; 82962; 83036; 83735; 84703; 85025; 85027; 85610; 86850; 86900; 86901; 86922; 87086; 88304-TC; 88311-TC; 94760; 97116-GP; 97162-GP; 99285-25; A9579; C1713; C1889; C9803-CS; G0378; J1644; U0003; U0005

== ENCOUNTER 2023-02-08 10:41 | Inpatient (IN) | payer OTHER ==
[2023-02-08] MEDS ORDERED: ACETAMINOPHEN 1000 MG/100 ML BAG IVPB ONE (11:58)
[2023-02-08] MEDS ORDERED: VANCOMYCIN 1,000 MG in DEXTROSE 5%-WATER - 250 ML IVPB ONE (11:58)
[2023-02-08] MEDS ORDERED: PIPERACILLIN/TAZOB 3.375 GM 3.375 GM in DEXTROSE 5%-WATER - 50 ML IVPB ONE (11:58)
[2023-02-08] MEDS ORDERED: ACETAMINOPHEN INJECTION 100 ML IVPB ONE (13:30)
[2023-02-08] MEDS ORDERED: PIPERACILLIN/TAZOB 3.375 GM 3.375 GM/50 ML BAG IVPB ONE ×2 (13:31→16:16)
[2023-02-08] MEDS ORDERED: VANCOMYCIN 1 GRAM (PRE-DOCKED) 1,000 MG/250 ML BAG IVPB ONE (13:31)
[2023-02-08 14:01] LABS: BASO % 0.6 % (0-2.0); EOS % 1.3 % (0-4.5); HEMOGLOBIN 9.6 GM/dL (10.7-15.3); LYMPH % 21.5 % (8-40); MCH 24.3 pg (25.7-33.7); MCHC 31.9 g/dl (32.0-36.0); MEAN CELL VOLUME 76.2 fl (80-96); MEAN PLT VOLUME 9.2 fl (7.5-11.1); MONO % 7.5 % (3.8-10.2); NEUT % 69.1 % (42.8-82.8); PLATELET COUNT 352 10^3/uL (134-434); RBC 3.94 M/mm3 (3.60-5.2); RDW 15.6 % (11.6-15.6)
[2023-02-08 14:11] LABS: INR 1.02 (0.83-1.09); PROTHROMBIN TIME (PATIENT) 11.8 SEC (9.7-13.0)
[2023-02-08 14:13] LABS: ACTIVATED PTT 29.8 SECONDS (25.2-36.5)
[2023-02-08] MEDS ORDERED: morphine CARPU-JECT 2 MG/1 ML DISP.SYRIN IVPUSH ONE (14:20)
[2023-02-08 14:37] LABS: POTASSIUM 3.5 mmol/L (3.5-5.1)
[2023-02-08 14:40] LABS: ALBUMIN 2.6 g/dl (3.4-5.0); CALCIUM 9.1 mg/dL (8.5-10.1)
[2023-02-08 14:41] LABS: BLOOD UREA NITROGEN 15.6 mg/dL (7-18)
[2023-02-08 14:43] LABS: CREATININE 1.4 mg/dL (0.55-1.3); TOT PROT 7.3 g/dl (6.4-8.2)
[2023-02-08 14:45] LABS: BILIRUBIN,TOTAL 0.2 mg/dL (0.2-1)
[2023-02-08 14:46] LABS: ERYTHROCYTE SEDIMENTATION RATE 108 mm/hr (0-20)
[2023-02-08] MEDS: INSULIN ASPART SLIDING SCALE (NOVOLOG) 1 VIAL SQ SCH ×2 (16:32→23:03)
[2023-02-08] MEDS: SODIUM CHLORIDE 1,000 ML IV SCH (16:49)
[2023-02-08] MEDS: PIPERACILLIN/TAZOB 3.375 GM 3.375 GM in DEXTROSE 5%-WATER - 50 ML IVPB SCH (17:14)
[2023-02-08] MEDS ORDERED: ATORVASTATIN CA 40 MG TABLET (FP) ONE (22:49)
[2023-02-08] MEDS ORDERED: LABETALOL HCL 200 MG TABLET (FP) ONE (22:49)
[2023-02-08] MEDS ORDERED: HEPARIN NA (PORCINE) 5,000 UNITS/ML 1ML VIAL ONE (22:49)
[2023-02-08] MEDS: HEPARIN NA (PORCINE) 5,000 UNITS/ML 1ML VIAL SQ SCH (22:54)
[2023-02-08] MEDS: LABETALOL HCL 200 MG TABLET (FP) PO SCH (22:54)
[2023-02-08] MEDS: ATORVASTATIN CA 40 MG TABLET (FP) PO SCH (22:54)
[2023-02-09] MEDS: PIPERACILLIN/TAZOB 3.375 GM 3.375 GM in DEXTROSE 5%-WATER - 50 ML IVPB SCH ×3 (01:51→18:42)
[2023-02-09] MEDS ORDERED: KETOROLAC TROMETHAMINE 30 MG/1 ML VIAL IVPUSH ONE (02:33)
[2023-02-09] MEDS: VANCOMYCIN/WATER FOR INJ (PEG) 1,000 MG/200 ML BAG IVPB SCH ×2 (02:50→13:41)
[2023-02-09] MEDS: HEPARIN NA (PORCINE) 5,000 UNITS/ML 1ML VIAL SQ SCH ×3 (06:18→23:21)
[2023-02-09] MEDS: INSULIN ASPART SLIDING SCALE (NOVOLOG) 1 VIAL SQ SCH ×4 (06:18→23:24)
[2023-02-09 09:25] LABS: BASO % 0.4 % (0-2.0); HEMATOCRIT 24.8 % (32.4-45.2); HEMOGLOBIN 7.9 GM/dL (10.7-15.3); LYMPH % 25.5 % (8-40); MCH 24.4 pg (25.7-33.7); MEAN CELL VOLUME 76.1 fl (80-96); MEAN PLT VOLUME 8.9 fl (7.5-11.1); MONO % 8.5 % (3.8-10.2); NEUT % 63.6 % (42.8-82.8); PLATELET COUNT 318 10^3/uL (134-434); RBC 3.25 M/mm3 (3.60-5.2); RDW 15.4 % (11.6-15.6); WHITE BLOOD COUNT 6.8 K/mm3 (4.0-10.0)
[2023-02-09 09:45] LABS: POTASSIUM 3.7 mmol/L (3.5-5.1)
[2023-02-09] MEDS ORDERED: ENOXAPARIN NA (PORCINE) 40 MG/0.4 ML DISP.SYRIN SQ SCH (10:00)
[2023-02-09 10:03] LABS: CALCIUM 8.2 mg/dL (8.5-10.1)
[2023-02-09] MEDS: amLODIPine BESYLATE 10 MG TABLET (FP) PO SCH (10:04)
[2023-02-09] MEDS: CLOPIDOGREL BISULFATE 75 MG TABLET (FP) PO SCH (10:04)
[2023-02-09] MEDS: LABETALOL HCL 200 MG TABLET (FP) PO SCH ×2 (10:05→23:25)
[2023-02-09 10:06] LABS: CREATININE 1.5 mg/dL (0.55-1.3); PHOSPHOROUS 5.1 mg/dL (2.5-4.9)
[2023-02-09 10:08] LABS: BILIRUBIN,TOTAL 0.4 mg/dL (0.2-1); TOT PROT 5.8 g/dl (6.4-8.2)
[2023-02-09] MEDS: COLLAGENASE CLOSTRIDIUM HIST. 30 GRAMS TUBE TP SCH (10:26)
[2023-02-09] MEDS: oxyCODONE HCL 5 MG TABLET PO PRN (11:27)
[2023-02-09] MEDS: SODIUM CHLORIDE 1,000 ML IV SCH ×2 (11:39→16:55)
[2023-02-09] MEDS ORDERED: IRON SUCROSE INJECTION 200 MG in SODIUM CHLORIDE 100 ML IVPB ONE (12:50)
[2023-02-09] MEDS: PREGABALIN 50 MG CAPSULE PO SCH ×2 (13:41→23:25)
[2023-02-09] MEDS: INSULIN (LEVEMIR) 100 UNITS/ML UNITS SQ SCH (23:22)
[2023-02-09] MEDS: ATORVASTATIN CA 40 MG TABLET (FP) PO SCH (23:25)
[2023-02-10] MEDS ORDERED: VANCOMYCIN/WATER FOR INJ (PEG) 1,000 MG/200 ML BAG IVPB SCH (02:00)
[2023-02-10] MEDS: PIPERACILLIN/TAZOB 3.375 GM 3.375 GM in DEXTROSE 5%-WATER - 50 ML IVPB SCH ×3 (02:42→17:20)
[2023-02-10] MEDS: HEPARIN NA (PORCINE) 5,000 UNITS/ML 1ML VIAL SQ SCH ×3 (07:12→22:32)
[2023-02-10] MEDS: PREGABALIN 50 MG CAPSULE PO SCH ×3 (07:12→22:32)
[2023-02-10] MEDS: INSULIN ASPART SLIDING SCALE (NOVOLOG) 1 VIAL SQ SCH ×4 (07:16→22:33)
[2023-02-10] MEDS: INSULIN (NOVOLOG) ASPART 100 UNITS/ML 10ML VIAL SQ SCH ×3 (07:20→17:18)
[2023-02-10] MEDS: amLODIPine BESYLATE 10 MG TABLET (FP) PO SCH (10:23)
[2023-02-10] MEDS: CLOPIDOGREL BISULFATE 75 MG TABLET (FP) PO SCH (10:23)
[2023-02-10] MEDS: LABETALOL HCL 200 MG TABLET (FP) PO SCH ×2 (10:23→22:32)
[2023-02-10] MEDS: VANCOMYCIN 1,000 MG in DEXTROSE 5%-WATER - 250 ML IVPB SCH (10:27)
[2023-02-10] MEDS: oxyCODONE HCL 5 MG TABLET PO PRN ×2 (11:03→20:01)
[2023-02-10] MEDS: COLLAGENASE CLOSTRIDIUM HIST. 30 GRAMS TUBE TP SCH (11:04)
[2023-02-10] MEDS: ATORVASTATIN CA 40 MG TABLET (FP) PO SCH (22:31)
[2023-02-10] MEDS: INSULIN (LEVEMIR) 100 UNITS/ML UNITS SQ SCH (22:32)
[2023-02-11] MEDS: PIPERACILLIN/TAZOB 3.375 GM 3.375 GM in DEXTROSE 5%-WATER - 50 ML IVPB SCH ×3 (01:58→17:12)
[2023-02-11] MEDS: PREGABALIN 50 MG CAPSULE PO SCH ×3 (05:29→22:32)
[2023-02-11] MEDS: HEPARIN NA (PORCINE) 5,000 UNITS/ML 1ML VIAL SQ SCH ×3 (05:29→22:32)
[2023-02-11] MEDS: INSULIN ASPART SLIDING SCALE (NOVOLOG) 1 VIAL SQ SCH ×4 (07:02→22:31)
[2023-02-11] MEDS: INSULIN (NOVOLOG) ASPART 100 UNITS/ML 10ML VIAL SQ SCH ×3 (07:03→17:13)
[2023-02-11 09:11] LABS: BASO % 0.4 % (0-2.0); EOS % 2.1 % (0-4.5); HEMATOCRIT 23.9 % (32.4-45.2); HEMOGLOBIN 7.8 GM/dL (10.7-15.3); LYMPH % 21.6 % (8-40); MCH 24.9 pg (25.7-33.7); MCHC 32.7 g/dl (32.0-36.0); MEAN PLT VOLUME 9.1 fl (7.5-11.1); MONO % 9.6 % (3.8-10.2); NEUT % 66.3 % (42.8-82.8); PLATELET COUNT 315 10^3/uL (134-434); RBC 3.14 M/mm3 (3.60-5.2); RDW 16.1 % (11.6-15.6); WHITE BLOOD COUNT 9.7 K/mm3 (4.0-10.0)
[2023-02-11 09:43] LABS: POTASSIUM 4.1 mmol/L (3.5-5.1)
[2023-02-11 09:45] LABS: CALCIUM 8.1 mg/dL (8.5-10.1)
[2023-02-11 09:47] LABS: ALBUMIN 2.2 g/dl (3.4-5.0); BLOOD UREA NITROGEN 17.1 mg/dL (7-18)
[2023-02-11 09:49] LABS: CREATININE 1.7 mg/dL (0.55-1.3)
[2023-02-11 09:50] LABS: BILIRUBIN,TOTAL 0.2 mg/dL (0.2-1)
[2023-02-11 09:51] LABS: TOT PROT 6.2 g/dl (6.4-8.2)
[2023-02-11] MEDS: amLODIPine BESYLATE 10 MG TABLET (FP) PO SCH (10:39)
[2023-02-11] MEDS: CLOPIDOGREL BISULFATE 75 MG TABLET (FP) PO SCH (10:39)
[2023-02-11] MEDS: LABETALOL HCL 200 MG TABLET (FP) PO SCH ×2 (10:40→22:33)
[2023-02-11] MEDS: MAG HYDROX/AL HYDROX/SIMETH 30 ML UNIT-DOSE CUP PO SCH ×3 (11:24→23:30)
[2023-02-11] MEDS: FAMOTIDINE 20 MG/50 ML IVPB 20 MG/50 ML MG IVPB SCH ×2 (11:24→22:31)
[2023-02-11] MEDS: oxyCODONE HCL 5 MG TABLET PO PRN (14:08)
[2023-02-11] MEDS: COLLAGENASE CLOSTRIDIUM HIST. 30 GRAMS TUBE TP SCH (17:15)
[2023-02-11] MEDS: ONDANSETRON 4 MG/2 ML VIAL IVPUSH PRN (18:23)
[2023-02-11] MEDS: INSULIN (LEVEMIR) 100 UNITS/ML UNITS SQ SCH (22:33)
[2023-02-11] MEDS: ATORVASTATIN CA 40 MG TABLET (FP) PO SCH (22:33)
[2023-02-12] MEDS: PIPERACILLIN/TAZOB 3.375 GM 3.375 GM in DEXTROSE 5%-WATER - 50 ML IVPB SCH ×2 (02:16→10:17)
[2023-02-12] MEDS: MAG HYDROX/AL HYDROX/SIMETH 30 ML UNIT-DOSE CUP PO SCH ×3 (06:28→17:29)
[2023-02-12] MEDS: INSULIN ASPART SLIDING SCALE (NOVOLOG) 1 VIAL SQ SCH ×4 (06:29→22:19)
[2023-02-12] MEDS: HEPARIN NA (PORCINE) 5,000 UNITS/ML 1ML VIAL SQ SCH ×2 (06:31→13:28)
[2023-02-12] MEDS: INSULIN (NOVOLOG) ASPART 100 UNITS/ML 10ML VIAL SQ SCH ×3 (06:31→16:58)
[2023-02-12] MEDS: PREGABALIN 50 MG CAPSULE PO SCH ×3 (06:31→22:18)
[2023-02-12] MEDS ORDERED: PIPERACILLIN/TAZOBACTAM 3.375 GM VIAL IVPB ONE (10:07)
[2023-02-12] MEDS: FAMOTIDINE 20 MG/50 ML IVPB 20 MG/50 ML MG IVPB SCH (10:09)
[2023-02-12] MEDS: CLOPIDOGREL BISULFATE 75 MG TABLET (FP) PO SCH (10:09)
[2023-02-12] MEDS: LABETALOL HCL 200 MG TABLET (FP) PO SCH ×2 (10:14→22:19)
[2023-02-12] MEDS: amLODIPine BESYLATE 10 MG TABLET (FP) PO SCH (10:14)
[2023-02-12] MEDS: oxyCODONE HCL 5 MG TABLET PO PRN (10:14)
[2023-02-12] MEDS: ONDANSETRON 4 MG/2 ML VIAL IVPUSH PRN (10:34)
[2023-02-12] MEDS ORDERED: FAMOTIDINE 20 MG TABLET PO SCH ×2 (10:45→22:00)
[2023-02-12] MEDS: COLLAGENASE CLOSTRIDIUM HIST. 30 GRAMS TUBE TP SCH (11:05)
[2023-02-12] MEDS: FAMOTIDINE 20 MG/2.5 ML ORAL LIQUID PO SCH ×2 (12:25→22:20)
[2023-02-12] MEDS: ALBUTEROL SO4 0.083% IH SOL 2.5 MG/3 ML VIAL.NEB. NEB PRN (12:55)
[2023-02-12] MEDS ORDERED: IRON SUCROSE INJECTION 200 MG in SODIUM CHLORIDE 90 ML IVPB ONE (17:00)
[2023-02-12 17:05] LABS: HEMATOCRIT 24.8 % (32.4-45.2); MCH 24.5 pg (25.7-33.7); MCHC 32.3 g/dl (32.0-36.0); MEAN PLT VOLUME 8.6 fl (7.5-11.1); PLATELET COUNT 333 10^3/uL (134-434); RBC 3.26 M/mm3 (3.60-5.2); RDW 16.1 % (11.6-15.6); WHITE BLOOD COUNT 9.3 K/mm3 (4.0-10.0)
[2023-02-12 17:41] LABS: POTASSIUM 4.9 mmol/L (3.5-5.1)
[2023-02-12 17:43] LABS: ALBUMIN 2.4 g/dl (3.4-5.0); CALCIUM 8.2 mg/dL (8.5-10.1)
[2023-02-12 17:44] LABS: BLOOD UREA NITROGEN 16.1 mg/dL (7-18); MAGNESIUM 2.4 mg/dL (1.8-2.4)
[2023-02-12 17:46] LABS: CREATININE 1.6 mg/dL (0.55-1.3)
[2023-02-12 17:48] LABS: BILIRUBIN,TOTAL 0.4 mg/dL (0.2-1); TOT PROT 6.9 g/dl (6.4-8.2)
[2023-02-12 17:52] LABS: N-TERMINAL BNP 493.2 pg/ml (5-125)
[2023-02-12] MEDS: ENOXAPARIN NA (PORCINE) 100 MG/1 ML DISP.SYRIN SQ SCH (18:53)
[2023-02-12] MEDS: ACETAMINOPHEN 325 MG TABLET (FP) PO PRN (19:07)
[2023-02-12] MEDS: INSULIN (LEVEMIR) 100 UNITS/ML UNITS SQ SCH (22:17)
[2023-02-12] MEDS: ATORVASTATIN CA 40 MG TABLET (FP) PO SCH (22:18)
[2023-02-13] MEDS: MAG HYDROX/AL HYDROX/SIMETH 30 ML UNIT-DOSE CUP PO SCH ×4 (01:03→17:20)
[2023-02-13] MEDS: ENOXAPARIN NA (PORCINE) 100 MG/1 ML DISP.SYRIN SQ SCH ×2 (06:53→17:33)
[2023-02-13] MEDS: PREGABALIN 50 MG CAPSULE PO SCH ×3 (06:53→22:11)
[2023-02-13] MEDS: INSULIN ASPART SLIDING SCALE (NOVOLOG) 1 VIAL SQ SCH ×4 (06:54→22:24)
[2023-02-13] MEDS: INSULIN (NOVOLOG) ASPART 100 UNITS/ML 10ML VIAL SQ SCH ×3 (06:54→16:27)
[2023-02-13] MEDS ORDERED: INSULIN (NOVOLOG) ASPART 100 UNITS/ML 10ML VIAL ONE ×2 (07:18→10:54)
[2023-02-13] MEDS: ALBUTEROL SO4 0.083% IH SOL 2.5 MG/3 ML VIAL.NEB. NEB PRN (07:50)
[2023-02-13] MEDS: LABETALOL HCL 200 MG TABLET (FP) PO SCH ×2 (10:55→22:11)
[2023-02-13] MEDS: amLODIPine BESYLATE 10 MG TABLET (FP) PO SCH (10:56)
[2023-02-13] MEDS: FAMOTIDINE 20 MG/2.5 ML ORAL LIQUID PO SCH ×3 (10:56→22:23)
[2023-02-13] MEDS: COLLAGENASE CLOSTRIDIUM HIST. 30 GRAMS TUBE TP SCH (11:04)
[2023-02-13] MEDS: guaiFENesin/CODEINE 10 ML UNIT-DOSE CUPS PO PRN (12:03)
[2023-02-13] MEDS: ACETAMINOPHEN 325 MG TABLET (FP) PO PRN (14:15)
[2023-02-13 16:42] LABS: BASO % 0.6 % (0-2.0); EOS % 0.3 % (0-4.5); HEMATOCRIT 24.9 % (32.4-45.2); HEMOGLOBIN 8.1 GM/dL (10.7-15.3); LYMPH % 15.6 % (8-40); MCH 24.7 pg (25.7-33.7); MCHC 32.5 g/dl (32.0-36.0); MEAN CELL VOLUME 75.9 fl (80-96); MONO % 9.8 % (3.8-10.2); NEUT % 73.7 % (42.8-82.8); PLATELET COUNT 327 10^3/uL (134-434); RBC 3.28 M/mm3 (3.60-5.2)
[2023-02-13 17:11] LABS: POTASSIUM 4.7 mmol/L (3.5-5.1)
[2023-02-13 17:12] LABS: CALCIUM 7.9 mg/dL (8.5-10.1)
[2023-02-13 17:16] LABS: CREATININE 1.6 mg/dL (0.55-1.3)
[2023-02-13] MEDS: PIPERACILLIN/TAZOB 3.375 GM 3.375 GM in DEXTROSE 5%-WATER - 50 ML IVPB SCH (17:33)
[2023-02-13 17:41] LABS: EPI CELLS 15 /uL (0-25.1); HYALINE CASTS 1 /uL (0-3.1); PH,URINE 5.5 (5.0-8.0); URINE APPEARANCE CLEAR; URINE BACTERIA 10 /uL (0-1359); URINE BILIRUBIN NEGATIVE (NEGATIVE); URINE COLOR YELLOW; URINE GLUCOSE (UA) 2+ (NEGATIVE); URINE KETONE NEGATIVE (NEGATIVE); URINE LEUK ESTERASE NEGATIVE (NEGATIVE); URINE NITRITE NEGATIVE (NEGATIVE); URINE PROTEIN 3+ (NEGATIVE); URINE RBC 121 /uL (0-23.9); URINE UROBILINOGEN 0.2 mg/dL (0.2-1.0); URINE WBC 23 /uL (0-25.8)
[2023-02-13] MEDS: ATORVASTATIN CA 40 MG TABLET (FP) PO SCH (22:11)
[2023-02-13] MEDS: INSULIN (LEVEMIR) 100 UNITS/ML UNITS SQ SCH (22:19)
[2023-02-14] MEDS: MAG HYDROX/AL HYDROX/SIMETH 30 ML UNIT-DOSE CUP PO SCH ×5 (02:57→23:16)
[2023-02-14] MEDS: PIPERACILLIN/TAZOB 3.375 GM 3.375 GM in DEXTROSE 5%-WATER - 50 ML IVPB SCH ×4 (03:01→11:30)
[2023-02-14] MEDS: PREGABALIN 50 MG CAPSULE PO SCH ×3 (06:12→22:47)
[2023-02-14] MEDS: ENOXAPARIN NA (PORCINE) 100 MG/1 ML DISP.SYRIN SQ SCH ×2 (06:12→17:13)
[2023-02-14] MEDS: guaiFENesin/CODEINE 10 ML UNIT-DOSE CUPS PO PRN (06:14)
[2023-02-14] MEDS: ACETAMINOPHEN 325 MG TABLET (FP) PO PRN (06:38)
[2023-02-14] MEDS: ONDANSETRON 4 MG/2 ML VIAL IVPUSH PRN (07:32)
[2023-02-14] MEDS: ACETAMINOPHEN 1000 MG/100 ML BAG IVPB PRN (07:32)
[2023-02-14] MEDS: INSULIN (NOVOLOG) ASPART 100 UNITS/ML 10ML VIAL SQ SCH ×3 (07:41→17:13)
[2023-02-14] MEDS: INSULIN ASPART SLIDING SCALE (NOVOLOG) 1 VIAL SQ SCH ×4 (07:42→23:04)
[2023-02-14 09:38] LABS: BASO % 0.5 % (0-2.0); EOS % 0.2 % (0-4.5); HEMOGLOBIN 7.4 GM/dL (10.7-15.3); LYMPH % 11.2 % (8-40); MCH 25.4 pg (25.7-33.7); MCHC 33.6 g/dl (32.0-36.0); MEAN CELL VOLUME 75.7 fl (80-96); MEAN PLT VOLUME 8.8 fl (7.5-11.1); MONO % 8.6 % (3.8-10.2); NEUT % 79.5 % (42.8-82.8); PLATELET COUNT 317 10^3/uL (134-434); RDW 15.7 % (11.6-15.6); WHITE BLOOD COUNT 10.9 K/mm3 (4.0-10.0)
[2023-02-14] MEDS: LABETALOL HCL 200 MG TABLET (FP) PO SCH ×2 (10:36→22:47)
[2023-02-14] MEDS: FAMOTIDINE 20 MG/2.5 ML ORAL LIQUID PO SCH ×3 (10:37→23:15)
[2023-02-14] MEDS: amLODIPine BESYLATE 10 MG TABLET (FP) PO SCH (10:37)
[2023-02-14] MEDS: COLLAGENASE CLOSTRIDIUM HIST. 30 GRAMS TUBE TP SCH (10:37)
[2023-02-14 10:53] LABS: POTASSIUM 4.7 mmol/L (3.5-5.1)
[2023-02-14 11:06] LABS: CALCIUM 7.7 mg/dL (8.5-10.1)
[2023-02-14 11:07] LABS: BLOOD UREA NITROGEN 22.9 mg/dL (7-18)
[2023-02-14 11:09] LABS: CREATININE 1.9 mg/dL (0.55-1.3)
[2023-02-14 11:11] LABS: BILIRUBIN,TOTAL 0.3 mg/dL (0.2-1); TOT PROT 6.2 g/dl (6.4-8.2)
[2023-02-14 11:13] LABS: ALBUMIN 1.9 g/dl (3.4-5.0)
[2023-02-14] MEDS ORDERED: FUROSEMIDE 40 MG/4 ML INJECTABLE VIAL IVPUSH ONE (13:26)
[2023-02-14] MEDS ORDERED: IRON SUCROSE INJECTION 200 MG in SODIUM CHLORIDE 90 ML IVPB ONE (16:48)
[2023-02-14] MEDS: PIPERACILLIN/TAZOB 2.25 GM 2.25 GM in DEXTROSE 5%-WATER - 50 ML IVPB SCH (17:14)
[2023-02-14] MEDS ORDERED: TAMSULOSIN HCL 0.4 MG CAP PO ONE (18:27)
[2023-02-14] MEDS ORDERED: INSULIN (NOVOLOG) ASPART 100 UNITS/ML 10ML VIAL ONE (22:42)
[2023-02-14] MEDS: ATORVASTATIN CA 40 MG TABLET (FP) PO SCH (22:47)
[2023-02-14] MEDS: INSULIN (LEVEMIR) 100 UNITS/ML UNITS SQ SCH (22:47)
[2023-02-15] MEDS: PIPERACILLIN/TAZOB 2.25 GM 2.25 GM in DEXTROSE 5%-WATER - 50 ML IVPB SCH ×3 (01:36→18:17)
[2023-02-15] MEDS: PREGABALIN 50 MG CAPSULE PO SCH ×3 (06:22→22:48)
[2023-02-15] MEDS: ENOXAPARIN NA (PORCINE) 100 MG/1 ML DISP.SYRIN SQ SCH ×2 (06:22→22:49)
[2023-02-15] MEDS: MAG HYDROX/AL HYDROX/SIMETH 30 ML UNIT-DOSE CUP PO SCH ×4 (06:23→18:15)
[2023-02-15] MEDS: INSULIN (NOVOLOG) ASPART 100 UNITS/ML 10ML VIAL SQ SCH ×3 (06:23→16:13)
[2023-02-15] MEDS: INSULIN ASPART SLIDING SCALE (NOVOLOG) 1 VIAL SQ SCH ×4 (06:37→22:48)
[2023-02-15] MEDS: ACETAMINOPHEN 1000 MG/100 ML BAG IVPB PRN (06:42)
[2023-02-15 08:56] LABS: BASO % 0.2 % (0-2.0); HEMATOCRIT 23.5 % (32.4-45.2); HEMOGLOBIN 7.7 GM/dL (10.7-15.3); LYMPH % 10.6 % (8-40); MCH 24.7 pg (25.7-33.7); MEAN CELL VOLUME 74.8 fl (80-96); MONO % 5.9 % (3.8-10.2); NEUT % 83.3 % (42.8-82.8); PLATELET COUNT 338 10^3/uL (134-434); RBC 3.14 M/mm3 (3.60-5.2); RDW 16.3 % (11.6-15.6); WHITE BLOOD COUNT 10.3 K/mm3 (4.0-10.0)
[2023-02-15] MEDS: amLODIPine BESYLATE 10 MG TABLET (FP) PO SCH (09:28)
[2023-02-15] MEDS: LABETALOL HCL 200 MG TABLET (FP) PO SCH ×2 (09:28→22:57)
[2023-02-15] MEDS: FAMOTIDINE 20 MG/2.5 ML ORAL LIQUID PO SCH (09:28)
[2023-02-15] MEDS: COLLAGENASE CLOSTRIDIUM HIST. 30 GRAMS TUBE TP SCH (09:29)
[2023-02-15 10:33] LABS: POTASSIUM 4.8 mmol/L (3.5-5.1)
[2023-02-15 10:36] LABS: BLOOD UREA NITROGEN 27.7 mg/dL (7-18); CALCIUM 7.7 mg/dL (8.5-10.1)
[2023-02-15] MEDS ORDERED: ONDANSETRON 4 MG/2 ML VIAL IVPUSH PRN (11:39)
[2023-02-15 12:00] LABS: N-TERMINAL BNP 1687.8 pg/ml (5-125)
[2023-02-15] MEDS ORDERED: FUROSEMIDE 40 MG/4 ML INJECTABLE VIAL IVPUSH ONE ×2 (15:52→19:00)
[2023-02-15] MEDS: ATORVASTATIN CA 40 MG TABLET (FP) PO SCH (22:49)
[2023-02-15] MEDS: INSULIN (LEVEMIR) 100 UNITS/ML UNITS SQ SCH (22:59)
[2023-02-16] MEDS: PIPERACILLIN/TAZOB 2.25 GM 2.25 GM in DEXTROSE 5%-WATER - 50 ML IVPB SCH ×2 (03:02→11:16)
[2023-02-16] MEDS: INSULIN (NOVOLOG) ASPART 100 UNITS/ML 10ML VIAL SQ SCH ×3 (06:59→17:57)
[2023-02-16] MEDS: FAMOTIDINE 20 MG/2.5 ML ORAL LIQUID PO SCH ×3 (06:59→22:29)
[2023-02-16] MEDS: MAG HYDROX/AL HYDROX/SIMETH 30 ML UNIT-DOSE CUP PO SCH ×4 (07:00→17:53)
[2023-02-16] MEDS: INSULIN ASPART SLIDING SCALE (NOVOLOG) 1 VIAL SQ SCH ×4 (07:01→22:28)
[2023-02-16] MEDS: PREGABALIN 50 MG CAPSULE PO SCH ×3 (07:01→22:26)
[2023-02-16 07:02] LABS: BASO % 0.6 % (0-2.0); EOS % 0.7 % (0-4.5); HEMATOCRIT 23.6 % (32.4-45.2); HEMOGLOBIN 7.8 GM/dL (10.7-15.3); LYMPH % 16.7 % (8-40); MCH 25.1 pg (25.7-33.7); MEAN PLT VOLUME 8.9 fl (7.5-11.1); MONO % 7.2 % (3.8-10.2); NEUT % 74.8 % (42.8-82.8); PLATELET COUNT 349 10^3/uL (134-434); RBC 3.11 M/mm3 (3.60-5.2); RDW 15.8 % (11.6-15.6); WHITE BLOOD COUNT 10.6 K/mm3 (4.0-10.0)
[2023-02-16 07:20] LABS: POTASSIUM 4.3 mmol/L (3.5-5.1)
[2023-02-16 07:33] LABS: BLOOD UREA NITROGEN 29.1 mg/dL (7-18)
[2023-02-16 07:34] LABS: CREATININE 1.8 mg/dL (0.55-1.3)
[2023-02-16] MEDS: guaiFENesin/CODEINE 10 ML UNIT-DOSE CUPS PO PRN ×2 (07:55→22:29)
[2023-02-16] MEDS: ALBUTEROL SO4 0.083% IH SOL 2.5 MG/3 ML VIAL.NEB. NEB PRN (08:28)
[2023-02-16] MEDS: LABETALOL HCL 200 MG TABLET (FP) PO SCH ×2 (11:15→22:28)
[2023-02-16] MEDS: amLODIPine BESYLATE 10 MG TABLET (FP) PO SCH (11:15)
[2023-02-16] MEDS: ENOXAPARIN NA (PORCINE) 100 MG/1 ML DISP.SYRIN SQ SCH ×2 (11:16→22:22)
[2023-02-16] MEDS: COLLAGENASE CLOSTRIDIUM HIST. 30 GRAMS TUBE TP SCH ×2 (11:17→18:33)
[2023-02-16] MEDS: ACETAMINOPHEN 325 MG TABLET (FP) PO PRN (12:34)
[2023-02-16] MEDS: methylPREDNISolone NA SUCC 40 MG/1 ML VIAL IVPUSH SCH ×3 (15:47→22:25)
[2023-02-16] MEDS: ACETYLCYSTEINE 20% 200MG/ML 4 ML VIAL *FOR ORAL / INH USE ONLY NEB SCH (21:58)
[2023-02-16] MEDS: ATORVASTATIN CA 40 MG TABLET (FP) PO SCH (22:24)
[2023-02-16] MEDS: CEFEPIME 1 GM in DEXTROSE 5%-WATER 100 ML IVPB SCH (22:27)
[2023-02-17] MEDS: MAG HYDROX/AL HYDROX/SIMETH 30 ML UNIT-DOSE CUP PO SCH ×4 (00:11→17:10)
[2023-02-17] MEDS: INSULIN (LEVEMIR) 100 UNITS/ML UNITS SQ SCH ×3 (00:11→22:10)
[2023-02-17] MEDS: methylPREDNISolone NA SUCC 40 MG/1 ML VIAL IVPUSH SCH ×2 (05:37→10:04)
[2023-02-17] MEDS: PREGABALIN 50 MG CAPSULE PO SCH ×3 (05:38→22:13)
[2023-02-17] MEDS ORDERED: INSULIN (NOVOLOG) ASPART 100 UNITS/ML 10ML VIAL ONE ×3 (05:54→20:58)
[2023-02-17] MEDS: INSULIN (NOVOLOG) ASPART 100 UNITS/ML 10ML VIAL SQ SCH ×3 (06:07→16:43)
[2023-02-17] MEDS: INSULIN ASPART SLIDING SCALE (NOVOLOG) 1 VIAL SQ SCH ×4 (06:08→22:17)
[2023-02-17] MEDS: ACETYLCYSTEINE 20% 200MG/ML 4 ML VIAL *FOR ORAL / INH USE ONLY NEB SCH ×2 (08:14→20:46)
[2023-02-17] MEDS: ALBUTEROL SO4 0.083% IH SOL 2.5 MG/3 ML VIAL.NEB. NEB PRN ×2 (08:14→20:46)
[2023-02-17] MEDS: CEFEPIME 1 GM in DEXTROSE 5%-WATER 100 ML IVPB SCH ×2 (10:02→22:13)
[2023-02-17] MEDS: ENOXAPARIN NA (PORCINE) 100 MG/1 ML DISP.SYRIN SQ SCH ×2 (10:03→22:11)
[2023-02-17] MEDS: guaiFENesin/CODEINE 10 ML UNIT-DOSE CUPS PO PRN ×2 (10:03→20:51)
[2023-02-17] MEDS: LABETALOL HCL 200 MG TABLET (FP) PO SCH ×2 (10:05→22:12)
[2023-02-17] MEDS: COLLAGENASE CLOSTRIDIUM HIST. 30 GRAMS TUBE TP SCH (10:05)
[2023-02-17] MEDS: amLODIPine BESYLATE 10 MG TABLET (FP) PO SCH (10:05)
[2023-02-17] MEDS: FAMOTIDINE 20 MG/2.5 ML ORAL LIQUID PO SCH (10:06)
[2023-02-17] MEDS ORDERED: IRON SUCROSE INJECTION 200 MG in SODIUM CHLORIDE 90 ML IVPB ONE (15:00)
[2023-02-17] MEDS: ALBUTEROL SO4 2.5/IPRATROPIUM 0.5 INH SOL 3 ML VIAL.NEB. NEB SCH ×2 (15:45→20:48)
[2023-02-17] MEDS ORDERED: INSULIN (LEVEMIR) 100 UNITS/ML UNITS SQ ONE (20:58)
[2023-02-17] MEDS: ATORVASTATIN CA 40 MG TABLET (FP) PO SCH (22:12)
[2023-02-18] MEDS: ALBUTEROL SO4 0.083% IH SOL 2.5 MG/3 ML VIAL.NEB. NEB PRN ×2 (00:16→04:26)
[2023-02-18] MEDS ORDERED: INSULIN (LEVEMIR) 100 UNITS/ML UNITS SQ ONE (06:00)
[2023-02-18] MEDS ORDERED: INSULIN (NOVOLOG) ASPART 100 UNITS/ML 10ML VIAL ONE (06:00)
[2023-02-18] MEDS: MAG HYDROX/AL HYDROX/SIMETH 30 ML UNIT-DOSE CUP PO SCH ×6 (06:55→23:54)
[2023-02-18] MEDS: PREGABALIN 50 MG CAPSULE PO SCH ×3 (06:55→22:33)
[2023-02-18] MEDS: INSULIN (NOVOLOG) ASPART 100 UNITS/ML 10ML VIAL SQ SCH ×3 (06:56→17:02)
[2023-02-18] MEDS: INSULIN (LEVEMIR) 100 UNITS/ML UNITS SQ SCH ×2 (06:58→22:34)
[2023-02-18] MEDS: INSULIN ASPART SLIDING SCALE (NOVOLOG) 1 VIAL SQ SCH ×4 (06:59→22:34)
[2023-02-18] MEDS: FAMOTIDINE 20 MG/2.5 ML ORAL LIQUID PO SCH ×3 (06:59→22:35)
[2023-02-18] MEDS: ALBUTEROL SO4 2.5/IPRATROPIUM 0.5 INH SOL 3 ML VIAL.NEB. NEB SCH ×3 (07:50→21:13)
[2023-02-18] MEDS: ACETYLCYSTEINE 20% 200MG/ML 4 ML VIAL *FOR ORAL / INH USE ONLY NEB SCH ×2 (07:50→21:13)
[2023-02-18] MEDS: ENOXAPARIN NA (PORCINE) 100 MG/1 ML DISP.SYRIN SQ SCH ×2 (09:14→22:35)
[2023-02-18] MEDS: AMINO ACIDS/PROTEIN HYDROLYS 30 ML LIQUID.PKT PO SCH (09:14)
[2023-02-18] MEDS: CEFEPIME 1 GM in DEXTROSE 5%-WATER 100 ML IVPB SCH ×2 (09:15→22:35)
[2023-02-18] MEDS: methylPREDNISolone NA SUCC 40 MG/1 ML VIAL IVPUSH SCH (09:15)
[2023-02-18] MEDS: MULTIVITAMINS (DAILY MVI) TABLET (FP) PO SCH (09:15)
[2023-02-18] MEDS: ASCORBIC ACID 250 MG TABLET (FP) PO SCH (09:15)
[2023-02-18] MEDS: amLODIPine BESYLATE 10 MG TABLET (FP) PO SCH (09:15)
[2023-02-18] MEDS: LABETALOL HCL 200 MG TABLET (FP) PO SCH ×2 (09:15→22:33)
[2023-02-18] MEDS: COLLAGENASE CLOSTRIDIUM HIST. 30 GRAMS TUBE TP SCH (09:16)
[2023-02-18] MEDS: guaiFENesin/CODEINE 10 ML UNIT-DOSE CUPS PO PRN (14:37)
[2023-02-18] MEDS: ATORVASTATIN CA 40 MG TABLET (FP) PO SCH (22:33)
[2023-02-19] MEDS: MAG HYDROX/AL HYDROX/SIMETH 30 ML UNIT-DOSE CUP PO SCH ×3 (06:37→18:11)
[2023-02-19] MEDS: INSULIN (LEVEMIR) 100 UNITS/ML UNITS SQ SCH (06:41)
[2023-02-19] MEDS: PREGABALIN 50 MG CAPSULE PO SCH ×3 (06:41→22:55)
[2023-02-19] MEDS: INSULIN (NOVOLOG) ASPART 100 UNITS/ML 10ML VIAL SQ SCH ×3 (06:42→18:14)
[2023-02-19] MEDS: INSULIN ASPART SLIDING SCALE (NOVOLOG) 1 VIAL SQ SCH ×4 (06:43→23:33)
[2023-02-19 07:22] LABS: HEMATOCRIT 27.2 % (32.4-45.2); HEMOGLOBIN 8.5 GM/dL (10.7-15.3); MCH 23.8 pg (25.7-33.7); MCHC 31.3 g/dl (32.0-36.0); MEAN CELL VOLUME 76.1 fl (80-96); MEAN PLT VOLUME 8.8 fl (7.5-11.1); PLATELET COUNT 384 10^3/uL (134-434); RBC 3.58 M/mm3 (3.60-5.2); RDW 16.4 % (11.6-15.6); WHITE BLOOD COUNT 14.2 K/mm3 (4.0-10.0)
[2023-02-19 08:00] LABS: POTASSIUM 4.1 mmol/L (3.5-5.1)
[2023-02-19 08:01] LABS: CALCIUM 8.4 mg/dL (8.5-10.1)
[2023-02-19 08:02] LABS: BLOOD UREA NITROGEN 44.8 mg/dL (7-18); MAGNESIUM 3.3 mg/dL (1.8-2.4)
[2023-02-19 08:05] LABS: CREATININE 1.4 mg/dL (0.55-1.3)
[2023-02-19 08:07] LABS: BILIRUBIN,TOTAL 0.2 mg/dL (0.2-1); TOT PROT 6.8 g/dl (6.4-8.2)
[2023-02-19] MEDS: ACETYLCYSTEINE 20% 200MG/ML 4 ML VIAL *FOR ORAL / INH USE ONLY NEB SCH ×2 (08:40→20:05)
[2023-02-19] MEDS: ALBUTEROL SO4 0.083% IH SOL 2.5 MG/3 ML VIAL.NEB. NEB PRN (08:40)
[2023-02-19] MEDS: ALBUTEROL SO4 2.5/IPRATROPIUM 0.5 INH SOL 3 ML VIAL.NEB. NEB SCH ×3 (08:50→20:05)
[2023-02-19] MEDS ORDERED: LABETALOL HCL 100 MG TABLET (FP) ONE (09:10)
[2023-02-19] MEDS: FAMOTIDINE 20 MG/2.5 ML ORAL LIQUID PO SCH ×2 (09:14→23:33)
[2023-02-19] MEDS: methylPREDNISolone NA SUCC 40 MG/1 ML VIAL IVPUSH SCH (09:14)
[2023-02-19] MEDS: ENOXAPARIN NA (PORCINE) 100 MG/1 ML DISP.SYRIN SQ SCH ×2 (09:14→22:54)
[2023-02-19] MEDS: CEFEPIME 1 GM in DEXTROSE 5%-WATER 100 ML IVPB SCH ×2 (09:14→22:54)
[2023-02-19] MEDS: AMINO ACIDS/PROTEIN HYDROLYS 30 ML LIQUID.PKT PO SCH (09:14)
[2023-02-19] MEDS: MULTIVITAMINS (DAILY MVI) TABLET (FP) PO SCH (09:14)
[2023-02-19] MEDS: guaiFENesin/CODEINE 10 ML UNIT-DOSE CUPS PO PRN ×2 (09:14→18:19)
[2023-02-19] MEDS: ASCORBIC ACID 250 MG TABLET (FP) PO SCH (09:14)
[2023-02-19] MEDS: amLODIPine BESYLATE 10 MG TABLET (FP) PO SCH (09:15)
[2023-02-19] MEDS: COLLAGENASE CLOSTRIDIUM HIST. 30 GRAMS TUBE TP SCH (09:16)
[2023-02-19] MEDS: LABETALOL HCL 200 MG TABLET (FP) PO SCH ×2 (09:16→22:54)
[2023-02-19] MEDS ORDERED: INSULIN (LEVEMIR) 100 UNITS/ML UNITS SQ SCH (11:46)
[2023-02-19] MEDS: ATORVASTATIN CA 40 MG TABLET (FP) PO SCH (22:55)
[2023-02-20] MEDS: MAG HYDROX/AL HYDROX/SIMETH 30 ML UNIT-DOSE CUP PO SCH ×5 (00:33→23:51)
[2023-02-20] MEDS: guaiFENesin/CODEINE 10 ML UNIT-DOSE CUPS PO PRN (03:17)
[2023-02-20] MEDS: PREGABALIN 50 MG CAPSULE PO SCH ×2 (05:48→13:00)
[2023-02-20] MEDS: INSULIN (LEVEMIR) 100 UNITS/ML UNITS SQ SCH ×2 (07:08→23:26)
[2023-02-20] MEDS: INSULIN ASPART SLIDING SCALE (NOVOLOG) 1 VIAL SQ SCH ×4 (07:08→23:27)
[2023-02-20] MEDS: INSULIN (NOVOLOG) ASPART 100 UNITS/ML 10ML VIAL SQ SCH ×3 (07:08→16:30)
[2023-02-20] MEDS: AMINO ACIDS/PROTEIN HYDROLYS 30 ML LIQUID.PKT PO SCH (08:14)
[2023-02-20] MEDS: ACETYLCYSTEINE 20% 200MG/ML 4 ML VIAL *FOR ORAL / INH USE ONLY NEB SCH ×2 (09:00→19:35)
[2023-02-20] MEDS: ALBUTEROL SO4 2.5/IPRATROPIUM 0.5 INH SOL 3 ML VIAL.NEB. NEB SCH ×3 (09:00→19:35)
[2023-02-20] MEDS: ACETAMINOPHEN 325 MG TABLET (FP) PO PRN ×2 (09:08→13:00)
[2023-02-20] MEDS: methylPREDNISolone NA SUCC 40 MG/1 ML VIAL IVPUSH SCH (09:08)
[2023-02-20] MEDS: MULTIVITAMINS (DAILY MVI) TABLET (FP) PO SCH (09:46)
[2023-02-20] MEDS: FAMOTIDINE 20 MG/2.5 ML ORAL LIQUID PO SCH ×2 (09:46→23:24)
[2023-02-20] MEDS: ENOXAPARIN NA (PORCINE) 100 MG/1 ML DISP.SYRIN SQ SCH ×2 (09:46→23:26)
[2023-02-20] MEDS: LABETALOL HCL 200 MG TABLET (FP) PO SCH ×2 (09:46→23:25)
[2023-02-20] MEDS: ASCORBIC ACID 250 MG TABLET (FP) PO SCH (09:46)
[2023-02-20] MEDS: amLODIPine BESYLATE 10 MG TABLET (FP) PO SCH (09:46)
[2023-02-20] MEDS: CEFEPIME 1 GM in DEXTROSE 5%-WATER 100 ML IVPB SCH ×2 (09:57→23:24)
[2023-02-20] MEDS: COLLAGENASE CLOSTRIDIUM HIST. 30 GRAMS TUBE TP SCH (12:00)
[2023-02-20] MEDS ORDERED: BENZONATATE 200 MG CAPSULE PO PRN (20:53)
[2023-02-20] MEDS: ATORVASTATIN CA 40 MG TABLET (FP) PO SCH (23:25)
[2023-02-20] MEDS: ALBUTEROL SO4 0.083% IH SOL 2.5 MG/3 ML VIAL.NEB. NEB PRN (23:46)
[2023-02-21] MEDS: MAG HYDROX/AL HYDROX/SIMETH 30 ML UNIT-DOSE CUP PO SCH ×4 (05:57→18:57)
[2023-02-21] MEDS: PREGABALIN 50 MG CAPSULE PO SCH ×4 (05:57→22:42)
[2023-02-21] MEDS ORDERED: INSULIN (NOVOLOG) ASPART 100 UNITS/ML 10ML VIAL ONE (06:49)
[2023-02-21] MEDS: INSULIN (LEVEMIR) 100 UNITS/ML UNITS SQ SCH ×2 (06:51→22:41)
[2023-02-21] MEDS: INSULIN (NOVOLOG) ASPART 100 UNITS/ML 10ML VIAL SQ SCH ×3 (06:51→17:13)
[2023-02-21] MEDS: INSULIN ASPART SLIDING SCALE (NOVOLOG) 1 VIAL SQ SCH ×4 (06:51→22:43)
[2023-02-21] MEDS ORDERED: INSULIN (LEVEMIR) 100 UNITS/ML UNITS SQ SCH (07:08)
[2023-02-21] MEDS: ALBUTEROL SO4 2.5/IPRATROPIUM 0.5 INH SOL 3 ML VIAL.NEB. NEB SCH ×3 (07:19→20:55)
[2023-02-21] MEDS: ACETYLCYSTEINE 20% 200MG/ML 4 ML VIAL *FOR ORAL / INH USE ONLY NEB SCH ×2 (07:19→20:56)
[2023-02-21 07:57] LABS: CHLORIDE 103 mmol/L (98-107); POTASSIUM 4.9 mmol/L (3.5-5.1); SODIUM 137 mmol/L (136-145)
[2023-02-21 08:05] LABS: ALBUMIN 2.1 g/dl (3.4-5.0); ANION GAP 3 mmol/L (4-13); BLOOD UREA NITROGEN 37.6 mg/dL (7-18); CO2 30 mmol/L (21-32); GLUCOSE,RANDOM 254 mg/dL (74-106)
[2023-02-21 08:08] LABS: CREATININE 1.2 mg/dL (0.55-1.3); SGOT/AST 38 U/L (15-37); SGPT/ALT 70 U/L (13-61)
[2023-02-21 08:10] LABS: BILIRUBIN,TOTAL < 0.1 mg/dL (0.2-1); TOT PROT 6.6 g/dl (6.4-8.2)
[2023-02-21 08:11] LABS: ALK PHOS 85 U/L (45-117)
[2023-02-21] MEDS: CEFEPIME 1 GM in DEXTROSE 5%-WATER 100 ML IVPB SCH ×2 (09:15→22:42)
[2023-02-21] MEDS: methylPREDNISolone NA SUCC 40 MG/1 ML VIAL IVPUSH SCH (09:17)
[2023-02-21] MEDS: ENOXAPARIN NA (PORCINE) 40 MG/0.4 ML DISP.SYRIN SQ SCH (09:18)
[2023-02-21] MEDS: LABETALOL HCL 200 MG TABLET (FP) PO SCH ×2 (09:19→22:42)
[2023-02-21] MEDS: amLODIPine BESYLATE 10 MG TABLET (FP) PO SCH (09:19)
[2023-02-21] MEDS: COLLAGENASE CLOSTRIDIUM HIST. 30 GRAMS TUBE TP SCH (09:19)
[2023-02-21] MEDS: AMINO ACIDS/PROTEIN HYDROLYS 30 ML LIQUID.PKT PO SCH (09:19)
[2023-02-21] MEDS: FAMOTIDINE 20 MG/2.5 ML ORAL LIQUID PO SCH (09:19)
[2023-02-21] MEDS: ASCORBIC ACID 250 MG TABLET (FP) PO SCH (09:20)
[2023-02-21] MEDS: MULTIVITAMINS (DAILY MVI) TABLET (FP) PO SCH (09:20)
[2023-02-21] MEDS ORDERED: AZITHROMYCIN IVPB 500 MG/250 ML BAG IVPB SCH (10:00)
[2023-02-21] MEDS ORDERED: SOLIFENACIN SUCCINATE 5 MG TAB PO SCH (10:00)
[2023-02-21 12:00] LABS: HEMATOCRIT 29.4 % (32.4-45.2); HEMOGLOBIN 9.3 GM/dL (10.7-15.3); MCH 24.3 pg (25.7-33.7); MCHC 31.7 g/dl (32.0-36.0); MEAN CELL VOLUME 76.7 fl (80-96); MEAN PLT VOLUME 8.8 fl (7.5-11.1); PLATELET COUNT 405 10^3/uL (134-434); RBC 3.83 M/mm3 (3.60-5.2); RDW 16.3 % (11.6-15.6); WHITE BLOOD COUNT 18.5 K/mm3 (4.0-10.0)
[2023-02-21] MEDS ORDERED: FUROSEMIDE 40 MG/4 ML INJECTABLE VIAL IVPUSH ONE ×2 (12:21→15:15)
[2023-02-21 12:45] LABS: ANISOCYTOSIS 1+; MACROCYTOSIS 0; OVALOCYTE 1+; TARGET CELLS 0
[2023-02-21] MEDS: guaiFENesin/D-M SUGAR-FREE/ACLHOL-FREE (200 MG/10 MG) 5 ML PO PRN ×2 (15:10→22:50)
[2023-02-21] MEDS ORDERED: ONDANSETRON 4 MG/2 ML VIAL IVPUSH PRN (18:59)
[2023-02-21] MEDS ORDERED: BENZONATATE 200 MG CAPSULE PO PRN (18:59)
[2023-02-21] MEDS ORDERED: FAMOTIDINE 20 MG/2.5 ML ORAL LIQUID PO SCH (22:00)
[2023-02-21] MEDS: FAMOTIDINE 20 MG TABLET PO SCH (22:42)
[2023-02-21] MEDS: ATORVASTATIN CA 40 MG TABLET (FP) PO SCH (22:42)
[2023-02-22] MEDS ORDERED: LIDOCAINE HCL 1%, 10 MG/ML (20ML VIAL) INF ONE
[2023-02-22] MEDS ORDERED: HEPARIN NA (PORCINE) 5,000 UNITS/ML 1ML VIAL SQ ONE
[2023-02-22] MEDS: MAG HYDROX/AL HYDROX/SIMETH 30 ML UNIT-DOSE CUP PO SCH ×4 (00:35→18:37)
[2023-02-22] MEDS: guaiFENesin/D-M SUGAR-FREE/ACLHOL-FREE (200 MG/10 MG) 5 ML PO PRN ×2 (05:49→15:51)
[2023-02-22] MEDS: PREGABALIN 50 MG CAPSULE PO SCH ×3 (05:49→21:46)
[2023-02-22] MEDS: INSULIN (LEVEMIR) 100 UNITS/ML UNITS SQ SCH ×2 (06:05→21:47)
[2023-02-22] MEDS: INSULIN ASPART SLIDING SCALE (NOVOLOG) 1 VIAL SQ SCH ×4 (06:05→21:40)
[2023-02-22] MEDS: INSULIN (NOVOLOG) ASPART 100 UNITS/ML 10ML VIAL SQ SCH ×3 (06:05→16:03)
[2023-02-22] MEDS: ACETYLCYSTEINE 20% 200MG/ML 4 ML VIAL *FOR ORAL / INH USE ONLY NEB SCH ×2 (07:40→20:30)
[2023-02-22] MEDS: ALBUTEROL SO4 2.5/IPRATROPIUM 0.5 INH SOL 3 ML VIAL.NEB. NEB SCH ×3 (08:00→20:05)
[2023-02-22] MEDS: AMINO ACIDS/PROTEIN HYDROLYS 30 ML LIQUID.PKT PO SCH (08:43)
[2023-02-22 08:47] LABS: POTASSIUM 4.4 mmol/L (3.5-5.1)
[2023-02-22 08:48] LABS: HEMATOCRIT 27.1 % (32.4-45.2); HEMOGLOBIN 8.9 GM/dL (10.7-15.3); MCH 25.2 pg (25.7-33.7); MCHC 32.9 g/dl (32.0-36.0); MEAN CELL VOLUME 76.5 fl (80-96); MEAN PLT VOLUME 8.8 fl (7.5-11.1); PLATELET COUNT 362 10^3/uL (134-434); RBC 3.54 M/mm3 (3.60-5.2); RDW 16.9 % (11.6-15.6); WHITE BLOOD COUNT 10.5 K/mm3 (4.0-10.0)
[2023-02-22 08:50] LABS: CALCIUM 7.7 mg/dL (8.5-10.1)
[2023-02-22 08:51] LABS: BLOOD UREA NITROGEN 34.5 mg/dL (7-18); CREATININE 1.1 mg/dL (0.55-1.3)
[2023-02-22 08:52] LABS: BILIRUBIN,TOTAL 0.2 mg/dL (0.2-1)
[2023-02-22] MEDS ORDERED: CEFEPIME HCL 1 GM VIAL (RESTRICTED TO ID) ONE (09:11)
[2023-02-22] MEDS: ACETAMINOPHEN 325 MG TABLET (FP) PO PRN ×2 (09:15→21:55)
[2023-02-22] MEDS: amLODIPine BESYLATE 10 MG TABLET (FP) PO SCH (09:16)
[2023-02-22] MEDS: MULTIVITAMINS (DAILY MVI) TABLET (FP) PO SCH (09:16)
[2023-02-22] MEDS: SOLIFENACIN SUCCINATE 5 MG TAB PO SCH (09:16)
[2023-02-22] MEDS: ASCORBIC ACID 250 MG TABLET (FP) PO SCH (09:16)
[2023-02-22] MEDS: methylPREDNISolone NA SUCC 40 MG/1 ML VIAL IVPUSH SCH (09:16)
[2023-02-22] MEDS: LABETALOL HCL 200 MG TABLET (FP) PO SCH ×2 (09:16→21:46)
[2023-02-22] MEDS: FAMOTIDINE 20 MG TABLET PO SCH ×2 (09:16→21:46)
[2023-02-22] MEDS: ENOXAPARIN NA (PORCINE) 40 MG/0.4 ML DISP.SYRIN SQ SCH (09:17)
[2023-02-22 10:00] LABS: INR 1.06 (0.83-1.09); PROTHROMBIN TIME (PATIENT) 12.3 SEC (9.7-13.0)
[2023-02-22 10:03] LABS: ACTIVATED PTT 30.1 SECONDS (25.2-36.5)
[2023-02-22] MEDS ORDERED: LIDOCAINE HCL 1%, 10 MG/ML (20ML VIAL) ONE ×2 (11:03→11:09)
[2023-02-22] MEDS ORDERED: HEPARIN NA (PORCINE) 5,000 UNITS/ML 1ML VIAL ONE ×2 (11:03→11:10)
[2023-02-22 12:43] LABS: ANISOCYTOSIS 3+; MACROCYTOSIS 0
[2023-02-22] MEDS: CEFEPIME 1 GM in DEXTROSE 5%-WATER 100 ML IVPB SCH ×2 (15:43→22:12)
[2023-02-22] MEDS: COLLAGENASE CLOSTRIDIUM HIST. 30 GRAMS TUBE TP SCH (15:45)
[2023-02-22] MEDS: AZITHROMYCIN IVPB 500 MG/250 ML BAG IVPB SCH (16:33)
[2023-02-22] MEDS: FUROSEMIDE 40 MG TABLET (FP) PO SCH (18:37)
[2023-02-22] MEDS: ALBUTEROL SO4 0.083% IH SOL 2.5 MG/3 ML VIAL.NEB. NEB PRN (20:30)
[2023-02-22] MEDS: ATORVASTATIN CA 40 MG TABLET (FP) PO SCH (21:46)
[2023-02-23] MEDS: MAG HYDROX/AL HYDROX/SIMETH 30 ML UNIT-DOSE CUP PO SCH ×4 (00:25→17:07)
[2023-02-23] MEDS: INSULIN (LEVEMIR) 100 UNITS/ML UNITS SQ SCH ×2 (06:12→21:24)
[2023-02-23] MEDS: PREGABALIN 50 MG CAPSULE PO SCH ×3 (06:13→21:18)
[2023-02-23] MEDS: INSULIN (NOVOLOG) ASPART 100 UNITS/ML 10ML VIAL SQ SCH ×3 (06:14→17:13)
[2023-02-23] MEDS: INSULIN ASPART SLIDING SCALE (NOVOLOG) 1 VIAL SQ SCH ×4 (06:14→21:24)
[2023-02-23] MEDS: ACETYLCYSTEINE 20% 200MG/ML 4 ML VIAL *FOR ORAL / INH USE ONLY NEB SCH ×2 (07:10→20:17)
[2023-02-23] MEDS: ALBUTEROL SO4 2.5/IPRATROPIUM 0.5 INH SOL 3 ML VIAL.NEB. NEB SCH ×3 (07:10→20:17)
[2023-02-23] MEDS ORDERED: AMOX TR/POT CLAV 875MG/125MG TABLETS (FP) PO SCH (08:00)
[2023-02-23] MEDS: FAMOTIDINE 20 MG TABLET PO SCH ×3 (08:41→21:19)
[2023-02-23] MEDS: ENOXAPARIN NA (PORCINE) 40 MG/0.4 ML DISP.SYRIN SQ SCH (10:44)
[2023-02-23] MEDS: FUROSEMIDE 40 MG TABLET (FP) PO SCH (10:44)
[2023-02-23] MEDS: AMINO ACIDS/PROTEIN HYDROLYS 30 ML LIQUID.PKT PO SCH (10:44)
[2023-02-23] MEDS: amLODIPine BESYLATE 10 MG TABLET (FP) PO SCH (10:45)
[2023-02-23] MEDS: LABETALOL HCL 200 MG TABLET (FP) PO SCH ×2 (10:45→21:18)
[2023-02-23] MEDS: methylPREDNISolone NA SUCC 40 MG/1 ML VIAL IVPUSH SCH ×2 (10:47→12:49)
[2023-02-23] MEDS: SOLIFENACIN SUCCINATE 5 MG TAB PO SCH (10:50)
[2023-02-23] MEDS: ASCORBIC ACID 250 MG TABLET (FP) PO SCH (10:50)
[2023-02-23] MEDS: MULTIVITAMINS (DAILY MVI) TABLET (FP) PO SCH (10:50)
[2023-02-23] MEDS: AZITHROMYCIN IVPB 500 MG/250 ML BAG IVPB SCH ×2 (10:51→12:49)
[2023-02-23 12:45] LABS: BASO % 0.1 % (0-2.0); EOS % 0.2 % (0-4.5); HEMATOCRIT 32.1 % (32.4-45.2); HEMOGLOBIN 10.1 GM/dL (10.7-15.3); LYMPH % 12.4 % (8-40); MCHC 31.5 g/dl (32.0-36.0); MEAN CELL VOLUME 76.4 fl (80-96); MEAN PLT VOLUME 8.7 fl (7.5-11.1); MONO % 6.7 % (3.8-10.2); NEUT % 80.6 % (42.8-82.8); PLATELET COUNT 395 10^3/uL (134-434); RBC 4.21 M/mm3 (3.60-5.2); RDW 17.1 % (11.6-15.6); WHITE BLOOD COUNT 13.3 K/mm3 (4.0-10.0)
[2023-02-23] MEDS: COLLAGENASE CLOSTRIDIUM HIST. 30 GRAMS TUBE TP SCH (12:49)
[2023-02-23] MEDS ORDERED: VANCOMYCIN 1 GRAM (PRE-DOCKED) 1,000 MG/250 ML BAG IVPB SCH (14:00)
[2023-02-23] MEDS: VANCOMYCIN/WATER FOR INJ (PEG) 1,000 MG/200 ML BAG IVPB SCH (15:00)
[2023-02-23] MEDS ORDERED: INSULIN ASPART SLIDING SCALE (NOVOLOG) 1 VIAL SQ ONE (17:55)
[2023-02-23] MEDS: ATORVASTATIN CA 40 MG TABLET (FP) PO SCH (21:19)
[2023-02-24] MEDS: VANCOMYCIN/WATER FOR INJ (PEG) 1,000 MG/200 ML BAG IVPB SCH ×2 (01:25→15:19)
[2023-02-24] MEDS: guaiFENesin/D-M SUGAR-FREE/ACLHOL-FREE 5 ML UNIT DOSE PO PRN ×2 (02:27→23:34)
[2023-02-24] MEDS: ALBUTEROL SO4 0.083% IH SOL 2.5 MG/3 ML VIAL.NEB. NEB PRN ×2 (02:49→20:01)
[2023-02-24] MEDS: MAG HYDROX/AL HYDROX/SIMETH 30 ML UNIT-DOSE CUP PO SCH ×5 (05:24→23:02)
[2023-02-24] MEDS: PREGABALIN 50 MG CAPSULE PO SCH ×3 (05:24→21:46)
[2023-02-24] MEDS: INSULIN (NOVOLOG) ASPART 100 UNITS/ML 10ML VIAL SQ SCH ×3 (06:15→16:28)
[2023-02-24] MEDS: INSULIN ASPART SLIDING SCALE (NOVOLOG) 1 VIAL SQ SCH ×4 (06:15→21:49)
[2023-02-24] MEDS: INSULIN (LEVEMIR) 100 UNITS/ML UNITS SQ SCH ×2 (06:16→21:47)
[2023-02-24] MEDS: ALBUTEROL SO4 2.5/IPRATROPIUM 0.5 INH SOL 3 ML VIAL.NEB. NEB SCH ×3 (07:20→20:01)
[2023-02-24] MEDS: ACETYLCYSTEINE 20% 200MG/ML 4 ML VIAL *FOR ORAL / INH USE ONLY NEB SCH ×2 (07:20→20:01)
[2023-02-24] MEDS: AMINO ACIDS/PROTEIN HYDROLYS 30 ML LIQUID.PKT PO SCH (08:37)
[2023-02-24 08:41] LABS: POTASSIUM 4.5 mmol/L (3.5-5.1)
[2023-02-24 08:58] LABS: ALBUMIN 2.2 g/dl (3.4-5.0)
[2023-02-24 08:59] LABS: BLOOD UREA NITROGEN 34.9 mg/dL (7-18)
[2023-02-24 09:01] LABS: CREATININE 1.1 mg/dL (0.55-1.3)
[2023-02-24 09:03] LABS: BILIRUBIN,TOTAL 0.2 mg/dL (0.2-1); TOT PROT 6.4 g/dl (6.4-8.2)
[2023-02-24 09:09] LABS: CALCIUM 8.9 mg/dL (8.5-10.1)
[2023-02-24] MEDS: ASCORBIC ACID 250 MG TABLET (FP) PO SCH (09:24)
[2023-02-24] MEDS: MULTIVITAMINS (DAILY MVI) TABLET (FP) PO SCH (09:28)
[2023-02-24] MEDS: LABETALOL HCL 200 MG TABLET (FP) PO SCH ×2 (09:28→21:46)
[2023-02-24] MEDS: amLODIPine BESYLATE 10 MG TABLET (FP) PO SCH (09:28)
[2023-02-24] MEDS: FAMOTIDINE 20 MG TABLET PO SCH ×2 (09:28→21:46)
[2023-02-24] MEDS: FUROSEMIDE 40 MG TABLET (FP) PO SCH (09:28)
[2023-02-24] MEDS: ENOXAPARIN NA (PORCINE) 40 MG/0.4 ML DISP.SYRIN SQ SCH (09:29)
[2023-02-24] MEDS: SOLIFENACIN SUCCINATE 5 MG TAB PO SCH (09:29)
[2023-02-24] MEDS: methylPREDNISolone NA SUCC 40 MG/1 ML VIAL IVPUSH SCH (09:33)
[2023-02-24] MEDS: AZITHROMYCIN IVPB 500 MG/250 ML BAG IVPB SCH (09:34)
[2023-02-24] MEDS: COLLAGENASE CLOSTRIDIUM HIST. 30 GRAMS TUBE TP SCH (10:44)
[2023-02-24] MEDS: predniSONE 20 MG TABLET (UD) PO SCH (15:36)
[2023-02-24] MEDS ORDERED: ERTAPENEM SODIUM 1 GM VIAL IM ONE (16:00)
[2023-02-24] MEDS ORDERED: AMOX TR/POT CLAV 875MG/125MG TABLETS (FP) PO SCH (17:30)
[2023-02-24] MEDS: ATORVASTATIN CA 40 MG TABLET (FP) PO SCH (21:47)
[2023-02-25] MEDS: ACETAMINOPHEN 325 MG TABLET (FP) PO PRN (03:13)
[2023-02-25] MEDS: MAG HYDROX/AL HYDROX/SIMETH 30 ML UNIT-DOSE CUP PO SCH ×4 (05:18→23:54)
[2023-02-25] MEDS: PREGABALIN 50 MG CAPSULE PO SCH ×3 (05:18→22:26)
[2023-02-25] MEDS: ALBUTEROL SO4 0.083% IH SOL 2.5 MG/3 ML VIAL.NEB. NEB PRN (05:55)
[2023-02-25] MEDS: INSULIN (LEVEMIR) 100 UNITS/ML UNITS SQ SCH ×2 (06:21→22:26)
[2023-02-25] MEDS: INSULIN (NOVOLOG) ASPART 100 UNITS/ML 10ML VIAL SQ SCH ×3 (06:22→16:14)
[2023-02-25] MEDS: INSULIN ASPART SLIDING SCALE (NOVOLOG) 1 VIAL SQ SCH ×4 (06:23→22:28)
[2023-02-25] MEDS: ALBUTEROL SO4 2.5/IPRATROPIUM 0.5 INH SOL 3 ML VIAL.NEB. NEB SCH ×3 (08:26→20:02)
[2023-02-25 08:52] LABS: EPI CELLS >36 /uL (0-25.1); HYALINE CASTS 0 /uL (0-3.1); URINE APPEARANCE CLEAR; URINE BACTERIA 100 /uL (0-1359); URINE BILIRUBIN NEGATIVE (NEGATIVE); URINE COLOR YELLOW; URINE GLUCOSE (UA) 1+ (NEGATIVE); URINE KETONE NEGATIVE (NEGATIVE); URINE LEUK ESTERASE NEGATIVE (NEGATIVE); URINE NITRITE NEGATIVE (NEGATIVE); URINE PROTEIN 3+ (NEGATIVE); URINE UROBILINOGEN 0.2 mg/dL (0.2-1.0)
[2023-02-25 08:55] LABS: URINE RBC 82 /uL (0-23.9); URINE WBC 116 /uL (0-25.8)
[2023-02-25 09:07] LABS: BASO % 0.2 % (0-2.0); HEMATOCRIT 30.6 % (32.4-45.2); HEMOGLOBIN 9.7 GM/dL (10.7-15.3); LYMPH % 10.9 % (8-40); MCH 24.2 pg (25.7-33.7); MCHC 31.7 g/dl (32.0-36.0); MEAN CELL VOLUME 76.3 fl (80-96); MONO % 3.8 % (3.8-10.2); NEUT % 85.1 % (42.8-82.8); PLATELET COUNT 354 10^3/uL (134-434); RBC 4.01 M/mm3 (3.60-5.2); RDW 17.2 % (11.6-15.6); WHITE BLOOD COUNT 12.1 K/mm3 (4.0-10.0)
[2023-02-25 09:24] LABS: POTASSIUM 4.7 mmol/L (3.5-5.1)
[2023-02-25] MEDS: ACETYLCYSTEINE 20% 200MG/ML 4 ML VIAL *FOR ORAL / INH USE ONLY NEB SCH ×2 (09:27→20:02)
[2023-02-25 09:28] LABS: ALBUMIN 2.5 g/dl (3.4-5.0); BLOOD UREA NITROGEN 33.7 mg/dL (7-18); CALCIUM 8.9 mg/dL (8.5-10.1)
[2023-02-25 09:31] LABS: CREATININE 1.3 mg/dL (0.55-1.3)
[2023-02-25] MEDS: SOLIFENACIN SUCCINATE 5 MG TAB PO SCH (09:31)
[2023-02-25] MEDS: FAMOTIDINE 20 MG TABLET PO SCH ×2 (09:31→22:25)
[2023-02-25] MEDS: FUROSEMIDE 40 MG TABLET (FP) PO SCH (09:31)
[2023-02-25] MEDS: ENOXAPARIN NA (PORCINE) 40 MG/0.4 ML DISP.SYRIN SQ SCH (09:31)
[2023-02-25] MEDS: predniSONE 20 MG TABLET (UD) PO SCH (09:31)
[2023-02-25] MEDS: amLODIPine BESYLATE 10 MG TABLET (FP) PO SCH (09:31)
[2023-02-25] MEDS: ASCORBIC ACID 250 MG TABLET (FP) PO SCH (09:31)
[2023-02-25] MEDS: LABETALOL HCL 200 MG TABLET (FP) PO SCH ×2 (09:31→22:26)
[2023-02-25 09:33] LABS: BILIRUBIN,TOTAL 0.5 mg/dL (0.2-1); TOT PROT 6.6 g/dl (6.4-8.2)
[2023-02-25] MEDS: guaiFENesin/D-M SUGAR-FREE/ACLHOL-FREE 5 ML UNIT DOSE PO PRN (09:35)
[2023-02-25] MEDS: MULTIVITAMINS (DAILY MVI) TABLET (FP) PO SCH (09:37)
[2023-02-25] MEDS: AMINO ACIDS/PROTEIN HYDROLYS 30 ML LIQUID.PKT PO SCH (11:43)
[2023-02-25] MEDS: COLLAGENASE CLOSTRIDIUM HIST. 30 GRAMS TUBE TP SCH (12:13)
[2023-02-25] MEDS ORDERED: ERTAPENEM SODIUM 1 GM VIAL IM ONE (16:00)
[2023-02-25] MEDS: ATORVASTATIN CA 40 MG TABLET (FP) PO SCH (22:26)
[2023-02-26] MEDS: PREGABALIN 50 MG CAPSULE PO SCH ×3 (05:41→21:43)
[2023-02-26] MEDS: MAG HYDROX/AL HYDROX/SIMETH 30 ML UNIT-DOSE CUP PO SCH ×3 (05:41→17:29)
[2023-02-26] MEDS: INSULIN (NOVOLOG) ASPART 100 UNITS/ML 10ML VIAL SQ SCH ×3 (06:14→16:14)
[2023-02-26] MEDS: INSULIN ASPART SLIDING SCALE (NOVOLOG) 1 VIAL SQ SCH ×4 (06:16→21:48)
[2023-02-26] MEDS: INSULIN (LEVEMIR) 100 UNITS/ML UNITS SQ SCH ×2 (06:17→21:46)
[2023-02-26] MEDS: ACETYLCYSTEINE 20% 200MG/ML 4 ML VIAL *FOR ORAL / INH USE ONLY NEB SCH (07:25)
[2023-02-26] MEDS: ALBUTEROL SO4 2.5/IPRATROPIUM 0.5 INH SOL 3 ML VIAL.NEB. NEB SCH ×2 (07:25→14:50)
[2023-02-26 09:29] LABS: POTASSIUM 4.5 mmol/L (3.5-5.1)
[2023-02-26] MEDS: FUROSEMIDE 40 MG TABLET (FP) PO SCH (09:37)
[2023-02-26] MEDS: LABETALOL HCL 200 MG TABLET (FP) PO SCH ×2 (09:37→21:43)
[2023-02-26] MEDS: MULTIVITAMINS (DAILY MVI) TABLET (FP) PO SCH (09:37)
[2023-02-26] MEDS: FAMOTIDINE 20 MG TABLET PO SCH ×2 (09:37→21:43)
[2023-02-26] MEDS: predniSONE 20 MG TABLET (UD) PO SCH (09:37)
[2023-02-26] MEDS: ASCORBIC ACID 250 MG TABLET (FP) PO SCH (09:37)
[2023-02-26] MEDS: ENOXAPARIN NA (PORCINE) 40 MG/0.4 ML DISP.SYRIN SQ SCH (09:37)
[2023-02-26] MEDS: AMINO ACIDS/PROTEIN HYDROLYS 30 ML LIQUID.PKT PO SCH (09:37)
[2023-02-26] MEDS: SOLIFENACIN SUCCINATE 5 MG TAB PO SCH (09:37)
[2023-02-26] MEDS: amLODIPine BESYLATE 10 MG TABLET (FP) PO SCH (09:37)
[2023-02-26] MEDS: COLLAGENASE CLOSTRIDIUM HIST. 30 GRAMS TUBE TP SCH (09:38)
[2023-02-26 09:39] LABS: CALCIUM 9.2 mg/dL (8.5-10.1)
[2023-02-26 09:40] LABS: ALBUMIN 2.4 g/dl (3.4-5.0)
[2023-02-26 09:43] LABS: CREATININE 1.2 mg/dL (0.55-1.3)
[2023-02-26] MEDS: ACETAMINOPHEN 325 MG TABLET (FP) PO PRN ×2 (09:43→21:59)
[2023-02-26 09:44] LABS: BILIRUBIN,TOTAL 0.3 mg/dL (0.2-1); TOT PROT 6.4 g/dl (6.4-8.2)
[2023-02-26] MEDS: guaiFENesin/D-M SUGAR-FREE/ACLHOL-FREE 5 ML UNIT DOSE PO PRN (15:37)
[2023-02-26] MEDS ORDERED: ERTAPENEM SODIUM 1 GM VIAL IM ONE (16:00)
[2023-02-26] MEDS ORDERED: LIDOCAINE HCL 1%, 10 MG/ML (20ML VIAL) ONE (17:06)
[2023-02-26] MEDS: ATORVASTATIN CA 40 MG TABLET (FP) PO SCH (21:43)
[2023-02-27] MEDS: MAG HYDROX/AL HYDROX/SIMETH 30 ML UNIT-DOSE CUP PO SCH ×5 (00:45→23:21)
[2023-02-27] MEDS: PREGABALIN 50 MG CAPSULE PO SCH ×3 (06:08→21:48)
[2023-02-27] MEDS: INSULIN ASPART SLIDING SCALE (NOVOLOG) 1 VIAL SQ SCH ×4 (06:13→22:22)
[2023-02-27] MEDS: INSULIN (NOVOLOG) ASPART 100 UNITS/ML 10ML VIAL SQ SCH ×3 (06:13→17:06)
[2023-02-27] MEDS: INSULIN (LEVEMIR) 100 UNITS/ML UNITS SQ SCH ×2 (06:14→21:46)
[2023-02-27] MEDS: AMINO ACIDS/PROTEIN HYDROLYS 30 ML LIQUID.PKT PO SCH (08:58)
[2023-02-27] MEDS: FUROSEMIDE 40 MG TABLET (FP) PO SCH (09:04)
[2023-02-27] MEDS: SOLIFENACIN SUCCINATE 5 MG TAB PO SCH (09:04)
[2023-02-27] MEDS: ENOXAPARIN NA (PORCINE) 40 MG/0.4 ML DISP.SYRIN SQ SCH (09:04)
[2023-02-27] MEDS: ASCORBIC ACID 250 MG TABLET (FP) PO SCH (09:04)
[2023-02-27] MEDS: FAMOTIDINE 20 MG TABLET PO SCH ×2 (09:04→21:48)
[2023-02-27] MEDS: predniSONE 20 MG TABLET (UD) PO SCH (09:04)
[2023-02-27] MEDS: LABETALOL HCL 200 MG TABLET (FP) PO SCH ×2 (09:04→21:49)
[2023-02-27] MEDS: MULTIVITAMINS (DAILY MVI) TABLET (FP) PO SCH (09:05)
[2023-02-27] MEDS: amLODIPine BESYLATE 10 MG TABLET (FP) PO SCH (09:05)
[2023-02-27] MEDS: guaiFENesin/D-M SUGAR-FREE/ACLHOL-FREE 5 ML UNIT DOSE PO PRN (09:13)
[2023-02-27] MEDS: COLLAGENASE CLOSTRIDIUM HIST. 30 GRAMS TUBE TP SCH (09:14)
[2023-02-27 09:57] LABS: BASO % 0.2 % (0-2.0); EOS % 0.3 % (0-4.5); HEMATOCRIT 29.3 % (32.4-45.2); HEMOGLOBIN 9.1 GM/dL (10.7-15.3); LYMPH % 24.1 % (8-40); MCH 24.1 pg (25.7-33.7); MCHC 31.1 g/dl (32.0-36.0); MEAN CELL VOLUME 77.5 fl (80-96); MONO % 7.9 % (3.8-10.2); NEUT % 67.5 % (42.8-82.8); PLATELET COUNT 286 10^3/uL (134-434); RBC 3.78 M/mm3 (3.60-5.2); RDW 17.4 % (11.6-15.6); WHITE BLOOD COUNT 13.1 K/mm3 (4.0-10.0)
[2023-02-27 10:12] LABS: POTASSIUM 4.2 mmol/L (3.5-5.1)
[2023-02-27 10:21] LABS: BLOOD UREA NITROGEN 38.1 mg/dL (7-18); CALCIUM 9.2 mg/dL (8.5-10.1)
[2023-02-27 10:25] LABS: CREATININE 1.2 mg/dL (0.55-1.3)
[2023-02-27] MEDS ORDERED: INSULIN ASPART SLIDING SCALE (NOVOLOG) 1 VIAL SQ ONE ×2 (11:49→17:02)
[2023-02-27 15:09] LABS: BF WBC & OTHER NUCLEATED CELLS 50 /mm3
[2023-02-27 15:31] LABS: BODY FLUID MACROPHAGES 9 %; BODY FLUID MESOTHELIAL 5 %
[2023-02-27] MEDS ORDERED: ERTAPENEM SODIUM 1 GM VIAL IM ONE ×2 (16:00→16:36)
[2023-02-27] MEDS: ATORVASTATIN CA 40 MG TABLET (FP) PO SCH (21:48)
[2023-02-28] MEDS: guaiFENesin/D-M SUGAR-FREE/ACLHOL-FREE 5 ML UNIT DOSE PO PRN (00:45)
[2023-02-28] MEDS: PREGABALIN 50 MG CAPSULE PO SCH ×3 (05:48→21:37)
[2023-02-28] MEDS: MAG HYDROX/AL HYDROX/SIMETH 30 ML UNIT-DOSE CUP PO SCH ×3 (05:48→17:04)
[2023-02-28] MEDS: INSULIN (NOVOLOG) ASPART 100 UNITS/ML 10ML VIAL SQ SCH ×3 (07:17→16:55)
[2023-02-28] MEDS: INSULIN ASPART SLIDING SCALE (NOVOLOG) 1 VIAL SQ SCH ×4 (07:18→21:42)
[2023-02-28] MEDS: INSULIN (LEVEMIR) 100 UNITS/ML UNITS SQ SCH ×2 (07:20→21:37)
[2023-02-28] MEDS ORDERED: INSULIN (LEVEMIR) 100 UNITS/ML UNITS SQ ONE (08:13)
[2023-02-28] MEDS: FUROSEMIDE 40 MG TABLET (FP) PO SCH (09:25)
[2023-02-28] MEDS: LABETALOL HCL 200 MG TABLET (FP) PO SCH ×2 (09:25→21:37)
[2023-02-28] MEDS: predniSONE 20 MG TABLET (UD) PO SCH (09:25)
[2023-02-28] MEDS: SOLIFENACIN SUCCINATE 5 MG TAB PO SCH (09:25)
[2023-02-28] MEDS: ASCORBIC ACID 250 MG TABLET (FP) PO SCH (09:25)
[2023-02-28] MEDS: FAMOTIDINE 20 MG TABLET PO SCH ×2 (09:26→21:37)
[2023-02-28] MEDS: AMINO ACIDS/PROTEIN HYDROLYS 30 ML LIQUID.PKT PO SCH (09:26)
[2023-02-28] MEDS: MULTIVITAMINS (DAILY MVI) TABLET (FP) PO SCH (09:26)
[2023-02-28] MEDS: amLODIPine BESYLATE 10 MG TABLET (FP) PO SCH (09:26)
[2023-02-28] MEDS: COLLAGENASE CLOSTRIDIUM HIST. 30 GRAMS TUBE TP SCH (09:27)
[2023-02-28 15:08] VITALS: RESP 18
[2023-02-28] MEDS ORDERED: ERTAPENEM SODIUM 1 GM VIAL IM ONE (16:00)
[2023-02-28 16:08] LABS: BODY FLUID ALBUMIN 1.1 g/dL (Not Estab.)
[2023-02-28] MEDS: ATORVASTATIN CA 40 MG TABLET (FP) PO SCH (21:37)
[2023-03-01] MEDS: MAG HYDROX/AL HYDROX/SIMETH 30 ML UNIT-DOSE CUP PO SCH ×4 (00:10→17:15)
[2023-03-01] MEDS: guaiFENesin/D-M SUGAR-FREE/ACLHOL-FREE 5 ML UNIT DOSE PO PRN (03:54)
[2023-03-01] MEDS: PREGABALIN 50 MG CAPSULE PO SCH ×3 (06:27→21:59)
[2023-03-01] MEDS ORDERED: LIDOCAINE HCL 1%, 10 MG/ML (20ML VIAL) ONE (07:09)
[2023-03-01] MEDS ORDERED: BUPIVACAINE HCL/PF 0.5% (5MG/ML) 10 ML VIAL ONE (07:09)
[2023-03-01] MEDS ORDERED: LIDOCAINE HCL 2% (20ML MULTI-DOSE VIAL) ONE (07:09)
[2023-03-01] MEDS: INSULIN (LEVEMIR) 100 UNITS/ML UNITS SQ SCH ×2 (07:11→22:00)
[2023-03-01] MEDS: INSULIN (NOVOLOG) ASPART 100 UNITS/ML 10ML VIAL SQ SCH ×3 (07:12→17:13)
[2023-03-01] MEDS: INSULIN ASPART SLIDING SCALE (NOVOLOG) 1 VIAL SQ SCH ×4 (07:12→22:03)
[2023-03-01] MEDS ORDERED: MIDAZOLAM HCL 2 MG/2 ML SINGLE DOSE VIAL ONE (07:53)
[2023-03-01] MEDS ORDERED: LIDOCAINE HCL 1%, 10 MG/ML (20ML VIAL) INF ONE (07:59)
[2023-03-01] MEDS: AMINO ACIDS/PROTEIN HYDROLYS 30 ML LIQUID.PKT PO SCH (08:24)
[2023-03-01] MEDS ORDERED: ONDANSETRON 4 MG/2 ML VIAL IVPUSH PRN ×2 (08:24→08:42)
[2023-03-01] MEDS ORDERED: LACTATED RINGERS SOLUTION 1,000 ML IV SCH (08:30)
[2023-03-01] MEDS ORDERED: BENZONATATE 200 MG CAPSULE PO PRN (08:42)
[2023-03-01] MEDS ORDERED: predniSONE 20 MG TABLET (UD) PO SCH (10:00)
[2023-03-01] MEDS: LABETALOL HCL 200 MG TABLET (FP) PO SCH ×2 (10:32→21:59)
[2023-03-01] MEDS: COLLAGENASE CLOSTRIDIUM HIST. 30 GRAMS TUBE TP SCH (10:32)
[2023-03-01] MEDS: FUROSEMIDE 20 MG TABLET (FP) PO SCH (10:32)
[2023-03-01] MEDS: SOLIFENACIN SUCCINATE 5 MG TAB PO SCH (10:32)
[2023-03-01] MEDS: ASCORBIC ACID 250 MG TABLET (FP) PO SCH (10:32)
[2023-03-01] MEDS: MULTIVITAMINS (DAILY MVI) TABLET (FP) PO SCH (10:32)
[2023-03-01] MEDS: FAMOTIDINE 20 MG TABLET PO SCH ×2 (10:32→21:59)
[2023-03-01] MEDS: amLODIPine BESYLATE 10 MG TABLET (FP) PO SCH (10:32)
[2023-03-01 12:32] LABS: BASO % 0.3 % (0-2.0); EOS % 0.4 % (0-4.5); HEMATOCRIT 28.5 % (32.4-45.2); LYMPH % 30.4 % (8-40); MCH 24.3 pg (25.7-33.7); MCHC 31.5 g/dl (32.0-36.0); MEAN PLT VOLUME 9.2 fl (7.5-11.1); MONO % 6.5 % (3.8-10.2); NEUT % 62.4 % (42.8-82.8); PLATELET COUNT 269 10^3/uL (134-434); RDW 17.6 % (11.6-15.6)
[2023-03-01 13:03] LABS: POTASSIUM 4.9 mmol/L (3.5-5.1)
[2023-03-01 13:06] LABS: BLOOD UREA NITROGEN 41.8 mg/dL (7-18)
[2023-03-01 13:10] LABS: CREATININE 1.3 mg/dL (0.55-1.3)
[2023-03-01] MEDS: ACETAMINOPHEN 325 MG TABLET (FP) PO PRN (15:14)
[2023-03-01] MEDS ORDERED: ERTAPENEM SODIUM 1 GM VIAL IM ONE (18:00)
[2023-03-01] MEDS: ATORVASTATIN CA 40 MG TABLET (FP) PO SCH (21:59)
[2023-03-02] MEDS: MAG HYDROX/AL HYDROX/SIMETH 30 ML UNIT-DOSE CUP PO SCH ×3 (00:21→11:52)
[2023-03-02] MEDS ORDERED: ERTAPENEM SODIUM 1 GM in SODIUM CHLORIDE 50 ML IVPB ONE (02:30)
[2023-03-02] MEDS: PREGABALIN 50 MG CAPSULE PO SCH ×3 (06:01→21:28)
[2023-03-02] MEDS: INSULIN (LEVEMIR) 100 UNITS/ML UNITS SQ SCH ×2 (06:21→21:28)
[2023-03-02] MEDS: INSULIN ASPART SLIDING SCALE (NOVOLOG) 1 VIAL SQ SCH ×4 (06:23→21:33)
[2023-03-02] MEDS: INSULIN (NOVOLOG) ASPART 100 UNITS/ML 10ML VIAL SQ SCH ×3 (06:23→16:28)
[2023-03-02] MEDS: AMINO ACIDS/PROTEIN HYDROLYS 30 ML LIQUID.PKT PO SCH (09:06)
[2023-03-02] MEDS: ASCORBIC ACID 250 MG TABLET (FP) PO SCH (09:06)
[2023-03-02] MEDS: MULTIVITAMINS (DAILY MVI) TABLET (FP) PO SCH (09:07)
[2023-03-02] MEDS: COLLAGENASE CLOSTRIDIUM HIST. 30 GRAMS TUBE TP SCH (09:07)
[2023-03-02] MEDS: LABETALOL HCL 200 MG TABLET (FP) PO SCH ×2 (09:07→21:28)
[2023-03-02] MEDS: FAMOTIDINE 20 MG TABLET PO SCH ×2 (09:07→21:28)
[2023-03-02] MEDS: SOLIFENACIN SUCCINATE 5 MG TAB PO SCH (09:07)
[2023-03-02] MEDS: FUROSEMIDE 20 MG TABLET (FP) PO SCH (09:07)
[2023-03-02] MEDS: predniSONE 20 MG TABLET (UD) PO SCH (09:07)
[2023-03-02] MEDS: amLODIPine BESYLATE 10 MG TABLET (FP) PO SCH (09:07)
[2023-03-02] MEDS: guaiFENesin/D-M SUGAR-FREE/ACLHOL-FREE 5 ML UNIT DOSE PO PRN (11:52)
[2023-03-02] MEDS: ATORVASTATIN CA 40 MG TABLET (FP) PO SCH (21:28)
[2023-03-02 23:33] VITALS: BMI 28.4
[2023-03-03] MEDS: PREGABALIN 50 MG CAPSULE PO SCH ×3 (06:21→21:28)
[2023-03-03] MEDS: INSULIN (LEVEMIR) 100 UNITS/ML UNITS SQ SCH ×2 (06:22→21:28)
[2023-03-03] MEDS: INSULIN (NOVOLOG) ASPART 100 UNITS/ML 10ML VIAL SQ SCH ×3 (06:23→16:54)
[2023-03-03] MEDS: INSULIN ASPART SLIDING SCALE (NOVOLOG) 1 VIAL SQ SCH ×4 (06:24→21:29)
[2023-03-03] MEDS: MULTIVITAMINS (DAILY MVI) TABLET (FP) PO SCH (09:00)
[2023-03-03] MEDS: MAG HYDROX/AL HYDROX/SIMETH 30 ML UNIT-DOSE CUP PO PRN (09:00)
[2023-03-03] MEDS: ACETAMINOPHEN 325 MG TABLET (FP) PO PRN ×2 (09:00→16:54)
[2023-03-03] MEDS: FAMOTIDINE 20 MG TABLET PO SCH ×2 (09:00→21:28)
[2023-03-03] MEDS: LABETALOL HCL 200 MG TABLET (FP) PO SCH ×2 (09:00→21:28)
[2023-03-03] MEDS: predniSONE 20 MG TABLET (UD) PO SCH (09:00)
[2023-03-03] MEDS: FUROSEMIDE 20 MG TABLET (FP) PO SCH (09:00)
[2023-03-03] MEDS: ASCORBIC ACID 250 MG TABLET (FP) PO SCH (09:00)
[2023-03-03] MEDS: AMINO ACIDS/PROTEIN HYDROLYS 30 ML LIQUID.PKT PO SCH (09:00)
[2023-03-03] MEDS: SOLIFENACIN SUCCINATE 5 MG TAB PO SCH (09:00)
[2023-03-03] MEDS: amLODIPine BESYLATE 10 MG TABLET (FP) PO SCH (09:00)
[2023-03-03] MEDS: COLLAGENASE CLOSTRIDIUM HIST. 30 GRAMS TUBE TP SCH (09:01)
[2023-03-03] MEDS ORDERED: ERTAPENEM SODIUM 1 GM VIAL IM ONE ×3 (10:00→11:00)
[2023-03-03] MEDS: ATORVASTATIN CA 40 MG TABLET (FP) PO SCH (21:28)
[2023-03-04] MEDS: guaiFENesin/D-M SUGAR-FREE/ACLHOL-FREE 5 ML UNIT DOSE PO PRN ×2 (00:39→09:07)
[2023-03-04] MEDS: ACETAMINOPHEN 325 MG TABLET (FP) PO PRN (04:28)
[2023-03-04] MEDS: PREGABALIN 50 MG CAPSULE PO SCH (06:23)
[2023-03-04] MEDS: INSULIN (LEVEMIR) 100 UNITS/ML UNITS SQ SCH (06:23)
[2023-03-04] MEDS: INSULIN (NOVOLOG) ASPART 100 UNITS/ML 10ML VIAL SQ SCH ×2 (06:24→11:30)
[2023-03-04] MEDS: INSULIN ASPART SLIDING SCALE (NOVOLOG) 1 VIAL SQ SCH ×2 (06:24→11:30)
[2023-03-04] MEDS: LABETALOL HCL 200 MG TABLET (FP) PO SCH (09:04)
[2023-03-04] MEDS: FAMOTIDINE 20 MG TABLET PO SCH (09:04)
[2023-03-04] MEDS: predniSONE 20 MG TABLET (UD) PO SCH (09:04)
[2023-03-04] MEDS: AMINO ACIDS/PROTEIN HYDROLYS 30 ML LIQUID.PKT PO SCH (09:04)
[2023-03-04] MEDS: FUROSEMIDE 20 MG TABLET (FP) PO SCH (09:04)
[2023-03-04] MEDS: ASCORBIC ACID 250 MG TABLET (FP) PO SCH (09:04)
[2023-03-04] MEDS: MULTIVITAMINS (DAILY MVI) TABLET (FP) PO SCH (09:04)
[2023-03-04] MEDS: SOLIFENACIN SUCCINATE 5 MG TAB PO SCH (09:04)
[2023-03-04] MEDS: amLODIPine BESYLATE 10 MG TABLET (FP) PO SCH (09:04)
[2023-03-04] MEDS: MAG HYDROX/AL HYDROX/SIMETH 30 ML UNIT-DOSE CUP PO PRN (09:10)
[2023-03-04] MEDS ORDERED: ERTAPENEM SODIUM 1 GM VIAL IM ONE (10:00)
[2023-03-04 10:08] VITALS: BP 138/72; PULSE 79; TEMP 98.2
[2023-03-04] MEDS: COLLAGENASE CLOSTRIDIUM HIST. 30 GRAMS TUBE TP SCH (10:42)
== END 2023-03-04 13:27 | disposition home health service (06) | DRG 637 ==
LOC: JER 10:41 → JERBED 13:21 → J8W 02-09 01:35 → J4W 02-15 10:23 → J6S 02-21 14:24
PROVIDERS: ADMIT Internal Medicine; ATTEND Family Medicine
PROC: 0W993ZX Drainage of Right Pleural Cavity, Percutaneous Approach, Diagnostic (ICD-10-PCS; 2023-02-27)
PROC: 0JBQ3ZX Excision of Right Foot Subcutaneous Tissue and Fascia, Percutaneous Approach, Diagnostic (ICD-10-PCS; principal; 2023-03-01 07:30)
DX: E11.621 Type 2 diabetes mellitus with foot ulcer (principal); J18.9 Pneumonia, unspecified organism; J96.01 Acute respiratory failure with hypoxia; L03.115 Cellulitis of right lower limb; J98.11 Atelectasis; I50.30 Unspecified diastolic (congestive) heart failure; J90 Pleural effusion, not elsewhere classified; R04.2 Hemoptysis; L97.519 Non-pressure chronic ulcer of other part of right foot with unspecified severity; N17.9 Acute kidney failure, unspecified; E78.5 Hyperlipidemia, unspecified; E11.51 Type 2 diabetes mellitus with diabetic peripheral angiopathy without gangrene; E66.9 Obesity, unspecified; Z68.36 Body mass index [BMI] 36.0-36.9, adult; N18.30 Chronic kidney disease, stage 3 unspecified; K59.00 Constipation, unspecified; E11.65 Type 2 diabetes mellitus with hyperglycemia; I12.9 Hypertensive chronic kidney disease with stage 1 through stage 4 chronic kidney disease, or unspecified chronic kidney disease
CPT/HCPCS: 0241U-QW; 36415; 71045-TC-FY; 71275-TC; 73630-TC-RT-FY; 73700-TC-RT; 73718-TC-RT; 76775-TC; 76942; 80048; 80053; 81003; 82042; 82150; 82436; 82465; 82570; 82945; 82962; 83036; 83540; 83550; 83605; 83615; 83735; 83880; 83986; 84100; 84133; 84157; 84300; 84478; 84484; 84540; 84703; 85025; 85027; 85379; 85610; 85651; 85730; 86038; 86140; 86160; 86850; 86900; 86901; 87040; 87070; 87075; 87076; 87077; 87081; 87086; 87102; 87116; 87205; 87206; 87210; 88108; 88305-TC; 93005; 93010; 93306-TC; 93926-TC; 93970-TC; 94010; 94640; 94760; 97116-GP; 97162-GP; 97597; 97598; 99285-25; J1644; J1756; Q9967

== ENCOUNTER 2023-04-06 13:48 | Emergency (ER) | payer OTHER ==
[2023-04-06 13:58] VITALS: BP 164/82; PULSE 104; RESP 18; TEMP 98.6; BMI 35.9
[2023-04-06] MEDS ORDERED: KETOROLAC TROMETHAMINE 15 MG/ML VIAL IM ONE (15:08)
[2023-04-06] MEDS ORDERED: ACETAMINOPHEN 500 MG TABLET (FP) PO ONE (15:08)
[2023-04-06] MEDS ORDERED: LIDOCAINE 5% TOPICAL PATCH TP ONE (15:09)
[2023-04-06] MEDS ORDERED: LIDOCAINE 4% PATCH TP ONE (15:19)
[2023-04-06] MEDS ORDERED: KETOROLAC TROMETHAMINE 15 MG/ML VIAL ONE (15:19)
[2023-04-06] MEDS ORDERED: ACETAMINOPHEN 325 MG TABLET (FP) ONE (15:19)
[2023-04-06] MEDS ORDERED: LIDOCAINE PATCH REMOVAL MC SCH (22:00)
== END 2023-04-06 16:54 | disposition home or self-care (01) ==
LOC: JERFT 13:48
PROC: 3E0233Z Introduction of Anti-inflammatory into Muscle, Percutaneous Approach (ICD-10-PCS; principal; 2023-04-06)
DX: M54.50 Low back pain, unspecified (principal); M79.605 Pain in left leg; R20.2 Paresthesia of skin; W05.0XXA Fall from non-moving wheelchair, initial encounter; Y93.F2 Activity, caregiving, lifting; Y92.89 Other specified places as the place of occurrence of the external cause
CPT/HCPCS: 72128-TC; 72131-TC; 96372; 99284-25

== ENCOUNTER 2023-05-26 12:42 | Inpatient (IN) | payer OTHER ==
[2023-05-26 13:33] LABS: VENOUS BASE EXCESS -1.6 mmol/L (-2-2); VENOUS O2 SATURATION 55.9 % (70-80); VENOUS PCO2 45.5 mmHg (38-52); VENOUS PH 7.346 (7.310-7.410)
[2023-05-26 13:35] LABS: BASO % 0.3 % (0-2.0); EOS % 0.5 % (0-4.5); HEMATOCRIT 33.4 % (32.4-45.2); HEMOGLOBIN 10.5 GM/dL (10.7-15.3); LYMPH % 6.1 % (8-40); MCH 24.1 pg (25.7-33.7); MCHC 31.6 g/dl (32.0-36.0); MEAN CELL VOLUME 76.4 fl (80-96); MEAN PLT VOLUME 9.6 fl (7.5-11.1); NEUT % 88.1 % (42.8-82.8); PLATELET COUNT 269 10^3/uL (134-434); RBC 4.38 M/mm3 (3.60-5.2); RDW 16.4 % (11.6-15.6); WHITE BLOOD COUNT 15.5 K/mm3 (4.0-10.0)
[2023-05-26 13:43] LABS: INR 0.97 (0.83-1.09); PROTHROMBIN TIME (PATIENT) 11.2 SEC (9.7-13.0)
[2023-05-26 13:46] LABS: ACTIVATED PTT 27.6 SECONDS (25.2-36.5)
[2023-05-26] MEDS ORDERED: FUROSEMIDE 40 MG/4 ML INJECTABLE VIAL ONE (14:08)
[2023-05-26] MEDS: FUROSEMIDE 40 MG/4 ML INJECTABLE VIAL IVPUSH ONE (14:21)
[2023-05-26] MEDS ORDERED: AZITHROMYCIN IVPB 500 MG/250 ML BAG IVPB ONE ×2 (16:03→16:34)
[2023-05-26] MEDS ORDERED: CEFTRIAXONE 1 GM/50 ML BAG ONE (16:03)
[2023-05-26] MEDS ORDERED: ASPIRIN 81 MG CHEWABLE TABLETS ONE (16:03)
[2023-05-26] MEDS: ASPIRIN 81 MG CHEWABLE TABLETS PO ONE (16:18)
[2023-05-26 16:21] LABS: POTASSIUM 3.7 mmol/L (3.5-5.1)
[2023-05-26 16:23] LABS: CALCIUM 8.6 mg/dL (8.5-10.1)
[2023-05-26 16:24] LABS: ALBUMIN 2.3 g/dl (3.4-5.0); BLOOD UREA NITROGEN 23.4 mg/dL (7-18)
[2023-05-26 16:27] LABS: CREATININE 1.2 mg/dL (0.55-1.3); PHOSPHOROUS 3.4 mg/dL (2.5-4.9)
[2023-05-26 16:28] LABS: BILIRUBIN,TOTAL 0.3 mg/dL (0.2-1)
[2023-05-26] MEDS: AZITHROMYCIN IVPB 500 MG in DEXTROSE 5%-WATER - 250 ML IVPB ONE (16:39)
[2023-05-26] MEDS ORDERED: HEPARIN NA (PORCINE) 5,000 UNITS/ML 1ML VIAL IVPUSH PRN (17:21)
[2023-05-26] MEDS ORDERED: HEPARIN NA (PORCINE) 5,000 UNITS/ML 1ML VIAL ONE (17:27)
[2023-05-26] MEDS ORDERED: HEPARIN INFUSION - 25,000 UNITS/500 ML INFUS.BAG IVPB ONE (17:27)
[2023-05-26] MEDS: HEPARIN NA (PORCINE) 5,000 UNITS/ML 1ML VIAL IVPUSH ONE (17:38)
[2023-05-26] MEDS: HEPARIN - 25,000 UNIT in SODIUM CHLORIDE 495 ML IV SCH (18:16)
[2023-05-26] MEDS ORDERED: ATORVASTATIN CA 40 MG TABLET (FP) ONE (21:57)
[2023-05-26] MEDS ORDERED: LABETALOL HCL 200 MG TABLET (FP) ONE (21:57)
[2023-05-26] MEDS ORDERED: GABAPENTIN 300 MG CAPSULE ONE (21:58)
[2023-05-26] MEDS ORDERED: INSULIN (LEVEMIR) 100 UNITS/ML UNITS SQ ONE (21:58)
[2023-05-26] MEDS: INSULIN (LEVEMIR) 100 UNITS/ML UNITS SQ SCH (22:12)
[2023-05-26] MEDS: ATORVASTATIN CA 40 MG TABLET (FP) PO SCH (22:13)
[2023-05-26] MEDS: GABAPENTIN 300 MG CAPSULE PO SCH (22:13)
[2023-05-26] MEDS: LABETALOL HCL 200 MG TABLET (FP) PO SCH (22:13)
[2023-05-26] MEDS: BUDESONIDE/FORMETEROL FUMARATE 80/4.5 mcg INHALER IH SCH (23:10)
[2023-05-27] MEDS ORDERED: GABAPENTIN 300 MG CAPSULE ONE ×2 (06:23→15:33)
[2023-05-27 07:42] LABS: BASO % 0.2 % (0-2.0); HEMATOCRIT 32.1 % (32.4-45.2); HEMOGLOBIN 10.4 GM/dL (10.7-15.3); LYMPH % 11.8 % (8-40); MCH 24.9 pg (25.7-33.7); MCHC 32.4 g/dl (32.0-36.0); MEAN PLT VOLUME 9.9 fl (7.5-11.1); MONO % 4.5 % (3.8-10.2); NEUT % 83.5 % (42.8-82.8); PLATELET COUNT 270 10^3/uL (134-434); RBC 4.16 M/mm3 (3.60-5.2); RDW 16.9 % (11.6-15.6); WHITE BLOOD COUNT 10.4 K/mm3 (4.0-10.0)
[2023-05-27] MEDS ORDERED: INSULIN (NOVOLOG) ASPART 100 UNITS/ML 10ML VIAL ONE ×3 (07:49→11:36)
[2023-05-27] MEDS ORDERED: INSULIN (LEVEMIR) 100 UNITS/ML UNITS SQ ONE (07:49)
[2023-05-27] MEDS: INSULIN (NOVOLOG) ASPART 100 UNITS/ML 10ML VIAL SQ SCH (08:03)
[2023-05-27] MEDS ORDERED: ALBUTEROL SO4 2.5/IPRATROPIUM 0.5 INH SOL 3 ML VIAL.NEB. NEB ONE ×2 (08:08→15:40)
[2023-05-27] MEDS ORDERED: CEFTRIAXONE 1 GM/50 ML BAG ONE (08:08)
[2023-05-27] MEDS ORDERED: cefTRIAXone SODIUM 1 GM VIAL ONE (08:08)
[2023-05-27] MEDS: CEFTRIAXONE 1 GM in DEXTROSE 5%-WATER - 50 ML IVPB SCH (08:14)
[2023-05-27] MEDS: ALBUTEROL SO4 2.5/IPRATROPIUM 0.5 INH SOL 3 ML VIAL.NEB. NEB PRN (08:16)
[2023-05-27] MEDS ORDERED: AZITHROMYCIN IVPB 500 MG/250 ML BAG IVPB ONE (08:41)
[2023-05-27] MEDS: AZITHROMYCIN IVPB 500 MG/250 ML BAG IVPB SCH (08:47)
[2023-05-27] MEDS ORDERED: FUROSEMIDE 40 MG/4 ML INJECTABLE VIAL IVPUSH SCH (10:00)
[2023-05-27] MEDS: ENOXAPARIN NA (PORCINE) 40 MG/0.4 ML DISP.SYRIN SQ SCH (10:38)
[2023-05-27] MEDS: CLOPIDOGREL BISULFATE 75 MG TABLET (FP) PO SCH (10:38)
[2023-05-27] MEDS: LOSARTAN POTASSIUM 50 MG TABLET PO SCH (10:38)
[2023-05-27] MEDS: SOLIFENACIN SUCCINATE 5 MG TAB PO SCH (10:38)
[2023-05-27] MEDS: amLODIPine BESYLATE 10 MG TABLET (FP) PO SCH (10:38)
[2023-05-27 12:37] LABS: CHLORIDE 103 mmol/L (98-107); POTASSIUM 3.8 mmol/L (3.5-5.1); SODIUM 141 mmol/L (136-145)
[2023-05-27 12:39] LABS: CALCIUM 8.4 mg/dL (8.5-10.1)
[2023-05-27 12:40] LABS: ALBUMIN 2.5 g/dl (3.4-5.0); BLOOD UREA NITROGEN 29.6 mg/dL (7-18); GLUCOSE,RANDOM 231 mg/dL (74-106)
[2023-05-27 12:43] LABS: CREATININE 1.4 mg/dL (0.55-1.3); SGOT/AST 14 U/L (15-37); SGPT/ALT 15 U/L (13-61)
[2023-05-27 12:45] LABS: BILIRUBIN,TOTAL 0.2 mg/dL (0.2-1)
[2023-05-27 12:46] LABS: TOT PROT 6.6 g/dl (6.4-8.2)
[2023-05-27 12:47] LABS: ALK PHOS 71 U/L (45-117)
[2023-05-27 13:06] LABS: ANION GAP 14 mmol/L (4-13); CO2 23 mmol/L (21-32)
[2023-05-27] MEDS ORDERED: FUROSEMIDE 40 MG/4 ML INJECTABLE VIAL ONE (15:05)
[2023-05-27] MEDS: FUROSEMIDE 40 MG/4 ML INJECTABLE VIAL IVPUSH SCH (15:17)
[2023-05-27] MEDS ORDERED: LABETALOL HCL 100 MG TABLET (FP) PO SCH (15:41)
[2023-05-27] MEDS: INSULIN ASPART SLIDING SCALE (NOVOLOG) 1 VIAL SQ SCH (16:47)
[2023-05-27] MEDS ORDERED: HEPARIN INFUSION - 25,000 UNITS/500 ML INFUS.BAG IVPB ONE (18:34)
[2023-05-27] MEDS: LABETALOL HCL 100 MG TABLET (FP) PO SCH (23:28)
[2023-05-28] MEDS: HEPARIN NA (PORCINE) 5,000 UNITS/ML 1ML VIAL IVPUSH PRN (03:21)
[2023-05-28 07:50] LABS: POTASSIUM 3.6 mmol/L (3.5-5.1)
[2023-05-28 07:58] LABS: BLOOD UREA NITROGEN 28.6 mg/dL (7-18); CALCIUM 8.2 mg/dL (8.5-10.1); MAGNESIUM 1.8 mg/dL (1.8-2.4)
[2023-05-28 08:01] LABS: PHOSPHOROUS 2.8 mg/dL (2.5-4.9)
[2023-05-28 08:02] LABS: CREATININE 1.3 mg/dL (0.55-1.3)
[2023-05-28] MEDS: ACETAMINOPHEN 325 MG TABLET (FP) PO PRN (10:36)
[2023-05-28] MEDS: FUROSEMIDE 40 MG/4 ML INJECTABLE VIAL IVPUSH SCH (10:36)
[2023-05-28] MEDS: CLOPIDOGREL BISULFATE 75 MG TABLET (FP) PO SCH (15:30)
[2023-05-28] MEDS: FAMOTIDINE 20 MG TABLET PO SCH (21:36)
[2023-05-29] MEDS: guaiFENesin/CODEINE 10 ML UNIT-DOSE CUPS PO ONE (00:59)
[2023-05-29 07:22] LABS: HEMATOCRIT 26.8 % (32.4-45.2); HEMOGLOBIN 8.7 GM/dL (10.7-15.3); MCHC 32.6 g/dl (32.0-36.0); MEAN CELL VOLUME 76.6 fl (80-96); MEAN PLT VOLUME 9.4 fl (7.5-11.1); PLATELET COUNT 244 10^3/uL (134-434); RDW 16.7 % (11.6-15.6); WHITE BLOOD COUNT 8.1 K/mm3 (4.0-10.0)
[2023-05-29 07:42] LABS: POTASSIUM 3.9 mmol/L (3.5-5.1)
[2023-05-29 07:44] LABS: CALCIUM 7.8 mg/dL (8.5-10.1)
[2023-05-29 07:45] LABS: BLOOD UREA NITROGEN 27.9 mg/dL (7-18); MAGNESIUM 2.1 mg/dL (1.8-2.4)
[2023-05-29 07:46] LABS: CREATININE 1.3 mg/dL (0.55-1.3)
[2023-05-29 07:47] LABS: BILIRUBIN,TOTAL 0.2 mg/dL (0.2-1); TOT PROT 5.3 g/dl (6.4-8.2)
[2023-05-29 07:48] LABS: PHOSPHOROUS 3.9 mg/dL (2.5-4.9)
[2023-05-29] MEDS: FUROSEMIDE 40 MG TABLET (FP) PO SCH (09:07)
[2023-05-29] MEDS: LIDOCAINE 5% TOPICAL PATCH TP ONE (13:13)
[2023-05-29] MEDS: FUROSEMIDE 40 MG/4 ML INJECTABLE VIAL IVPUSH ONE (20:07)
[2023-05-29] MEDS: LIDOCAINE PATCH REMOVAL MC SCH (22:01)
[2023-05-30] MEDS: FUROSEMIDE 40 MG/4 ML INJECTABLE VIAL IVPUSH SCH (05:53)
[2023-05-30 07:58] LABS: POTASSIUM 4.2 mmol/L (3.5-5.1)
[2023-05-30 08:01] LABS: CALCIUM 8.3 mg/dL (8.5-10.1); HEMATOCRIT 29.1 % (32.4-45.2); HEMOGLOBIN 9.7 GM/dL (10.7-15.3); MCH 25.1 pg (25.7-33.7); MCHC 33.3 g/dl (32.0-36.0); MEAN CELL VOLUME 75.3 fl (80-96); MEAN PLT VOLUME 9.5 fl (7.5-11.1); PLATELET COUNT 269 10^3/uL (134-434); RBC 3.86 M/mm3 (3.60-5.2); RDW 16.4 % (11.6-15.6); WHITE BLOOD COUNT 8.6 K/mm3 (4.0-10.0)
[2023-05-30 08:02] LABS: BLOOD UREA NITROGEN 29.6 mg/dL (7-18); MAGNESIUM 2.3 mg/dL (1.8-2.4)
[2023-05-30 08:04] LABS: PHOSPHOROUS 3.4 mg/dL (2.5-4.9)
[2023-05-30 08:05] LABS: CREATININE 1.6 mg/dL (0.55-1.3)
[2023-05-30 08:06] LABS: BILIRUBIN,TOTAL 0.3 mg/dL (0.2-1); TOT PROT 5.9 g/dl (6.4-8.2)
[2023-05-30] MEDS: ASPIRIN COATED 81 MG TABLET.EC PO SCH (10:31)
[2023-05-30] MEDS: ACETAMINOPHEN 500 MG TABLET (FP) PO ONE (10:33)
[2023-05-30] MEDS ORDERED: INSULIN (NOVOLOG) ASPART 100 UNITS/ML 10ML VIAL ONE (10:59)
[2023-05-30] MEDS: PIPERACILLIN/TAZOB 3.375 GM 3.375 GM in DEXTROSE 5%-WATER - 50 ML IVPB SCH (12:00)
[2023-05-30] MEDS: METOPROLOL TARTRATE 25 MG TABLET (FP) PO SCH (22:04)
[2023-05-31] MEDS: NITROGLYCERIN SUBLINGUAL 1/150 0.4 MG TAB SL ONE (05:28)
[2023-05-31] MEDS: PANTOPRAZOLE SODIUM 40 MG VIAL IVPUSH ONE ×2 (05:50→05:57)
[2023-05-31 06:45] LABS: HEMATOCRIT 27.4 % (32.4-45.2); MCH 25.1 pg (25.7-33.7); MCHC 32.8 g/dl (32.0-36.0); MEAN CELL VOLUME 76.5 fl (80-96); MEAN PLT VOLUME 9.5 fl (7.5-11.1); PLATELET COUNT 250 10^3/uL (134-434); RBC 3.59 M/mm3 (3.60-5.2); RDW 16.6 % (11.6-15.6); WHITE BLOOD COUNT 9.8 K/mm3 (4.0-10.0)
[2023-05-31 07:01] LABS: POTASSIUM 4.6 mmol/L (3.5-5.1)
[2023-05-31 07:03] LABS: CALCIUM 7.8 mg/dL (8.5-10.1)
[2023-05-31 07:04] LABS: ALBUMIN 1.9 g/dl (3.4-5.0); BLOOD UREA NITROGEN 31.5 mg/dL (7-18); MAGNESIUM 2.1 mg/dL (1.8-2.4)
[2023-05-31 07:07] LABS: CREATININE 1.7 mg/dL (0.55-1.3); PHOSPHOROUS 3.4 mg/dL (2.5-4.9)
[2023-05-31 07:09] LABS: BILIRUBIN,TOTAL 0.3 mg/dL (0.2-1); TOT PROT 5.5 g/dl (6.4-8.2)
[2023-05-31] MEDS: POLYETHYLENE GLYCOL (HEALTHYLAX) 3350 17 GM PACKET PO ONE (10:28)
[2023-05-31] MEDS: ACETAMINOPHEN 500 MG TABLET (FP) PO PRN (12:00)
[2023-05-31] MEDS: guaiFENesin 600 MG TABLET.ER (FP) PO SCH (14:18)
[2023-05-31] MEDS: SODIUM CHLORIDE 500 ML IV ONE (15:28)
[2023-05-31] MEDS ORDERED: INSULIN (NOVOLOG) ASPART 100 UNITS/ML 10ML VIAL ONE (16:30)
[2023-06-01 06:43] LABS: HEMATOCRIT 26.8 % (32.4-45.2); HEMOGLOBIN 8.7 GM/dL (10.7-15.3); MCH 24.8 pg (25.7-33.7); MCHC 32.6 g/dl (32.0-36.0); MEAN CELL VOLUME 76.2 fl (80-96); MEAN PLT VOLUME 9.2 fl (7.5-11.1); PLATELET COUNT 249 10^3/uL (134-434); RBC 3.52 M/mm3 (3.60-5.2); RDW 16.7 % (11.6-15.6); WHITE BLOOD COUNT 7.9 K/mm3 (4.0-10.0)
[2023-06-01 07:01] LABS: POTASSIUM 4.1 mmol/L (3.5-5.1)
[2023-06-01 07:07] LABS: ALBUMIN 1.8 g/dl (3.4-5.0); BLOOD UREA NITROGEN 31.3 mg/dL (7-18); CALCIUM 7.8 mg/dL (8.5-10.1); MAGNESIUM 2.4 mg/dL (1.8-2.4)
[2023-06-01 07:09] LABS: CREATININE 1.6 mg/dL (0.55-1.3)
[2023-06-01 07:10] LABS: TOT PROT 5.8 g/dl (6.4-8.2)
[2023-06-01 07:11] LABS: BILIRUBIN,TOTAL 0.3 mg/dL (0.2-1); PHOSPHOROUS 3.5 mg/dL (2.5-4.9)
[2023-06-01] MEDS: POLYETHYLENE GLYCOL (HEALTHYLAX) 3350 17 GM PACKET PO SCH (10:39)
[2023-06-01] MEDS: PANTOPRAZOLE 40 MG TABLET PO SCH (12:31)
[2023-06-02] MEDS: MELATONIN 5 MG TABLETS PO ONE (01:01)
[2023-06-02] MEDS: BENZOCAINE/MENTH/CETYLPYRD CL 1 EACH LOZENGE MM PRN (02:04)
[2023-06-02 06:49] LABS: HEMATOCRIT 26.7 % (32.4-45.2); HEMOGLOBIN 8.8 GM/dL (10.7-15.3); MCH 25.2 pg (25.7-33.7); MEAN CELL VOLUME 76.5 fl (80-96); MEAN PLT VOLUME 9.1 fl (7.5-11.1); PLATELET COUNT 306 10^3/uL (134-434); RBC 3.49 M/mm3 (3.60-5.2); RDW 16.7 % (11.6-15.6); WHITE BLOOD COUNT 8.2 K/mm3 (4.0-10.0)
[2023-06-02 07:08] LABS: POTASSIUM 4.2 mmol/L (3.5-5.1)
[2023-06-02 07:15] LABS: ALBUMIN 1.8 g/dl (3.4-5.0); BLOOD UREA NITROGEN 28.8 mg/dL (7-18); CALCIUM 7.8 mg/dL (8.5-10.1); MAGNESIUM 2.4 mg/dL (1.8-2.4)
[2023-06-02 07:18] LABS: CREATININE 1.4 mg/dL (0.55-1.3); PHOSPHOROUS 3.2 mg/dL (2.5-4.9)
[2023-06-02 07:19] LABS: BILIRUBIN,TOTAL 0.3 mg/dL (0.2-1); TOT PROT 5.7 g/dl (6.4-8.2)
[2023-06-02] MEDS ORDERED: INSULIN (LEVEMIR) 100 UNITS/ML UNITS SQ SCH (09:13)
[2023-06-02] MEDS: TIMOLOL MALEATE 0.25% GEL OPHTHALMIC SOLN 5 ML BOTTLE OU SCH (10:56)
[2023-06-02] MEDS: DORZOLAMIDE 2% HCL OPHTHALMIC SOLUTION 10 ML BOTTLE OU SCH ×2 (13:29→23:14)
[2023-06-02] MEDS ORDERED: ACETAMINOPHEN 500 MG TABLET (FP) PO PRN (15:28)
[2023-06-02] MEDS: ALBUTEROL SO4 2.5/IPRATROPIUM 0.5 INH SOL 3 ML VIAL.NEB. NEB PRN (15:46)
[2023-06-02] MEDS: FUROSEMIDE 40 MG/4 ML INJECTABLE VIAL IVPUSH ONE (16:49)
[2023-06-02] MEDS: INSULIN ASPART SLIDING SCALE (NOVOLOG) 1 VIAL SQ SCH (17:09)
[2023-06-02] MEDS: PIPERACILLIN/TAZOB 3.375 GM 3.375 GM in DEXTROSE 5%-WATER - 50 ML IVPB SCH (17:35)
[2023-06-02] MEDS: COLLAGENASE CLOSTRIDIUM HIST. 30 GRAMS TUBE TP SCH (20:25)
[2023-06-02] MEDS ORDERED: LIDOCAINE PATCH REMOVAL MC SCH (22:00)
[2023-06-02] MEDS: INSULIN (LEVEMIR) 100 UNITS/ML UNITS SQ SCH (23:04)
[2023-06-02] MEDS: METOPROLOL TARTRATE 25 MG TABLET (FP) PO SCH (23:13)
[2023-06-02] MEDS: guaiFENesin 600 MG TABLET.ER (FP) PO SCH (23:13)
[2023-06-02] MEDS: GABAPENTIN 300 MG CAPSULE PO SCH (23:13)
[2023-06-02] MEDS: ATORVASTATIN CA 40 MG TABLET (FP) PO SCH (23:13)
[2023-06-02] MEDS: BUDESONIDE/FORMETEROL FUMARATE 80/4.5 mcg INHALER IH SCH (23:14)
[2023-06-03] MEDS: BENZOCAINE/MENTH/CETYLPYRD CL 1 EACH LOZENGE MM PRN (06:53)
[2023-06-03] MEDS: ENOXAPARIN NA (PORCINE) 40 MG/0.4 ML DISP.SYRIN SQ SCH (09:11)
[2023-06-03] MEDS: ASPIRIN COATED 81 MG TABLET.EC PO SCH (09:11)
[2023-06-03] MEDS: CLOPIDOGREL BISULFATE 75 MG TABLET (FP) PO SCH (09:12)
[2023-06-03] MEDS: amLODIPine BESYLATE 10 MG TABLET (FP) PO SCH (09:12)
[2023-06-03] MEDS: PANTOPRAZOLE 40 MG TABLET PO SCH (09:12)
[2023-06-03] MEDS: SOLIFENACIN SUCCINATE 5 MG TAB PO SCH (09:12)
[2023-06-03] MEDS: POLYETHYLENE GLYCOL (HEALTHYLAX) 3350 17 GM PACKET PO SCH (09:15)
[2023-06-03] MEDS: TIMOLOL MALEATE 0.25% GEL OPHTHALMIC SOLN 5 ML BOTTLE OU SCH (09:18)
[2023-06-03 10:10] LABS: HEMATOCRIT 26.7 % (32.4-45.2); MCH 25.2 pg (25.7-33.7); MCHC 33.6 g/dl (32.0-36.0); MEAN PLT VOLUME 8.8 fl (7.5-11.1); PLATELET COUNT 378 10^3/uL (134-434); RBC 3.56 M/mm3 (3.60-5.2); RDW 16.6 % (11.6-15.6); WHITE BLOOD COUNT 6.7 K/mm3 (4.0-10.0)
[2023-06-03 10:29] LABS: POTASSIUM 4.4 mmol/L (3.5-5.1)
[2023-06-03 10:30] LABS: ALBUMIN 1.8 g/dl (3.4-5.0); CALCIUM 8.3 mg/dL (8.5-10.1)
[2023-06-03 10:32] LABS: BLOOD UREA NITROGEN 27.2 mg/dL (7-18); MAGNESIUM 2.5 mg/dL (1.8-2.4)
[2023-06-03 10:34] LABS: CREATININE 1.5 mg/dL (0.55-1.3); PHOSPHOROUS 3.4 mg/dL (2.5-4.9)
[2023-06-03 10:36] LABS: BILIRUBIN,TOTAL 0.3 mg/dL (0.2-1)
[2023-06-03] MEDS: FUROSEMIDE 40 MG/4 ML INJECTABLE VIAL IVPUSH ONE (10:50)
[2023-06-03] MEDS: CEFTRIAXONE 1 GM in DEXTROSE 5%-WATER - 50 ML IVPB SCH (12:49)
[2023-06-03] MEDS: PHENOL 177 ML SPRAY BOTTLE MM PRN (22:08)
[2023-06-04] MEDS: SODIUM CHLORIDE 500 ML IV STA (02:05)
[2023-06-04] MEDS: FUROSEMIDE 40 MG/4 ML INJECTABLE VIAL IVPUSH SCH (09:18)
[2023-06-04 15:37] LABS: EPI CELLS >36 /uL (0-25.1); HYALINE CASTS 0 /uL (0-3.1); URINE APPEARANCE CLEAR; URINE BACTERIA 2 /uL (0-1359); URINE BILIRUBIN NEGATIVE (NEGATIVE); URINE COLOR YELLOW; URINE GLUCOSE (UA) NEGATIVE (NEGATIVE); URINE KETONE NEGATIVE (NEGATIVE); URINE LEUK ESTERASE NEGATIVE (NEGATIVE); URINE NITRITE NEGATIVE (NEGATIVE); URINE PROTEIN 2+ (NEGATIVE); URINE RBC 15 /uL (0-23.9); URINE UROBILINOGEN 0.2 mg/dL (0.2-1.0); URINE WBC 3 /uL (0-25.8)
[2023-06-05 08:25] LABS: BASO % 0.6 % (0-2.0); EOS % 1.1 % (0-4.5); HEMATOCRIT 26.2 % (32.4-45.2); HEMOGLOBIN 8.4 GM/dL (10.7-15.3); LYMPH % 24.2 % (8-40); MCH 24.6 pg (25.7-33.7); MCHC 32.2 g/dl (32.0-36.0); MEAN CELL VOLUME 76.2 fl (80-96); MEAN PLT VOLUME 8.5 fl (7.5-11.1); MONO % 7.9 % (3.8-10.2); NEUT % 66.2 % (42.8-82.8); PLATELET COUNT 481 10^3/uL (134-434); RBC 3.44 M/mm3 (3.60-5.2); RDW 16.1 % (11.6-15.6); WHITE BLOOD COUNT 10.4 K/mm3 (4.0-10.0)
[2023-06-05 08:30] LABS: POTASSIUM 4.5 mmol/L (3.5-5.1)
[2023-06-05 08:37] LABS: ALBUMIN 1.8 g/dl (3.4-5.0); CALCIUM 8.2 mg/dL (8.5-10.1)
[2023-06-05 08:38] LABS: MAGNESIUM 2.3 mg/dL (1.8-2.4)
[2023-06-05 08:41] LABS: BILIRUBIN,TOTAL 0.3 mg/dL (0.2-1); CREATININE 1.3 mg/dL (0.55-1.3); TOT PROT 6.1 g/dl (6.4-8.2)
[2023-06-05 09:44] LABS: RETICULOCYTES 0.82 % (0.5-1.5)
[2023-06-05 10:20] LABS: HIV INTERPRETATION NEGATIVE (NEGATIVE)
[2023-06-05] MEDS: guaiFENesin/D-METHORPHAN HB 10 ML UNIT-DOSE CUPS PO PRN (15:45)
[2023-06-06 08:27] LABS: BASO % 0.8 % (0-2.0); EOS % 1.7 % (0-4.5); HEMATOCRIT 28.6 % (32.4-45.2); HEMOGLOBIN 9.3 GM/dL (10.7-15.3); LYMPH % 22.7 % (8-40); MCH 24.6 pg (25.7-33.7); MCHC 32.4 g/dl (32.0-36.0); MEAN CELL VOLUME 75.8 fl (80-96); MEAN PLT VOLUME 8.3 fl (7.5-11.1); MONO % 5.7 % (3.8-10.2); NEUT % 69.1 % (42.8-82.8); PLATELET COUNT 523 10^3/uL (134-434); RBC 3.77 M/mm3 (3.60-5.2); RDW 16.2 % (11.6-15.6); WHITE BLOOD COUNT 9.3 K/mm3 (4.0-10.0)
[2023-06-06 08:39] LABS: POTASSIUM 4.3 mmol/L (3.5-5.1)
[2023-06-06 08:42] LABS: ALBUMIN 1.8 g/dl (3.4-5.0); BLOOD UREA NITROGEN 23.8 mg/dL (7-18); CALCIUM 8.3 mg/dL (8.5-10.1)
[2023-06-06 08:44] LABS: CREATININE 1.4 mg/dL (0.55-1.3)
[2023-06-06 08:46] LABS: BILIRUBIN,TOTAL 0.2 mg/dL (0.2-1); TOT PROT 6.4 g/dl (6.4-8.2)
[2023-06-06 10:20] LABS: N-TERMINAL BNP 1002.3 pg/ml (5-125)
[2023-06-06] MEDS: CODEINE SO4 30 MG TABLET PO PRN (14:58)
[2023-06-06] MEDS ORDERED: BENZOCAINE/MENTH/CETYLPYRD CL 1 EACH LOZENGE MM PRN (22:34)
[2023-06-06] MEDS: COLLAGENASE CLOSTRIDIUM HIST. 30 GRAMS TUBE TP SCH (23:28)
[2023-06-07] MEDS: DORZOLAMIDE 2% HCL OPHTHALMIC SOLUTION 10 ML BOTTLE OU SCH (06:03)
[2023-06-07] MEDS: GABAPENTIN 300 MG CAPSULE PO SCH (06:03)
[2023-06-07] MEDS: INSULIN ASPART SLIDING SCALE (NOVOLOG) 1 VIAL SQ SCH (06:11)
[2023-06-07] MEDS: INSULIN (LEVEMIR) 100 UNITS/ML UNITS SQ SCH ×2 (06:12→21:10)
[2023-06-07 07:11] LABS: BASO % 0.7 % (0-2.0); EOS % 1.6 % (0-4.5); HEMATOCRIT 29.9 % (32.4-45.2); HEMOGLOBIN 9.6 GM/dL (10.7-15.3); LYMPH % 19.9 % (8-40); MCH 24.7 pg (25.7-33.7); MCHC 32.1 g/dl (32.0-36.0); MEAN PLT VOLUME 8.7 fl (7.5-11.1); MONO % 5.8 % (3.8-10.2); PLATELET COUNT 611 10^3/uL (134-434); RBC 3.88 M/mm3 (3.60-5.2); RDW 16.6 % (11.6-15.6); WHITE BLOOD COUNT 10.8 K/mm3 (4.0-10.0)
[2023-06-07 07:15] LABS: POTASSIUM 4.3 mmol/L (3.5-5.1)
[2023-06-07 07:25] LABS: BLOOD UREA NITROGEN 27.8 mg/dL (7-18); CALCIUM 8.7 mg/dL (8.5-10.1)
[2023-06-07 07:28] LABS: CREATININE 1.4 mg/dL (0.55-1.3)
[2023-06-07] MEDS ORDERED: COLLAGENASE CLOSTRIDIUM HIST. 30 GRAMS TUBE TP SCH (10:00)
[2023-06-07] MEDS ORDERED: PATIENT'S OWN MEDICATION (NON-FORMULARY) (Insulin Glargine,Hum.Rec.Anlog [Lantus] 100 UNIT SQ SCH (10:00)
[2023-06-07] MEDS: amLODIPine BESYLATE 10 MG TABLET (FP) PO SCH (10:29)
[2023-06-07] MEDS: METOPROLOL TARTRATE 25 MG TABLET (FP) PO SCH (10:29)
[2023-06-07] MEDS: PANTOPRAZOLE 40 MG TABLET PO SCH (10:29)
[2023-06-07] MEDS: CLOPIDOGREL BISULFATE 75 MG TABLET (FP) PO SCH (10:30)
[2023-06-07] MEDS: ENOXAPARIN NA (PORCINE) 40 MG/0.4 ML DISP.SYRIN SQ SCH (10:30)
[2023-06-07] MEDS: SOLIFENACIN SUCCINATE 5 MG TAB PO SCH (10:30)
[2023-06-07] MEDS: guaiFENesin 600 MG TABLET.ER (FP) PO SCH (10:30)
[2023-06-07] MEDS: BUDESONIDE/FORMETEROL FUMARATE 80/4.5 mcg INHALER IH SCH (10:31)
[2023-06-07] MEDS: TIMOLOL MALEATE 0.25% GEL OPHTHALMIC SOLN 5 ML BOTTLE OU SCH (10:31)
[2023-06-07] MEDS: ASPIRIN COATED 81 MG TABLET.EC PO SCH (10:31)
[2023-06-07] MEDS: POLYETHYLENE GLYCOL (HEALTHYLAX) 3350 17 GM PACKET PO SCH (10:31)
[2023-06-07] MEDS: ALBUTEROL SO4 2.5/IPRATROPIUM 0.5 INH SOL 3 ML VIAL.NEB. NEB PRN (11:11)
[2023-06-07 16:08] LABS: C-ANCA <1:20 titer (Neg:<1:20)
[2023-06-07] MEDS: FUROSEMIDE 40 MG/4 ML INJECTABLE VIAL IVPUSH ONE (19:04)
[2023-06-07] MEDS: ATORVASTATIN CA 40 MG TABLET (FP) PO SCH (21:11)
[2023-06-08 07:29] LABS: BASO % 0.4 % (0-2.0); EOS % 1.9 % (0-4.5); HEMATOCRIT 27.3 % (32.4-45.2); LYMPH % 25.3 % (8-40); MCH 24.8 pg (25.7-33.7); MCHC 32.8 g/dl (32.0-36.0); MEAN CELL VOLUME 75.7 fl (80-96); MEAN PLT VOLUME 8.1 fl (7.5-11.1); MONO % 6.8 % (3.8-10.2); NEUT % 65.6 % (42.8-82.8); PLATELET COUNT 606 10^3/uL (134-434); RDW 16.3 % (11.6-15.6); WHITE BLOOD COUNT 9.7 K/mm3 (4.0-10.0)
[2023-06-08 07:52] LABS: POTASSIUM 4.5 mmol/L (3.5-5.1)
[2023-06-08 08:50] LABS: CALCIUM 8.9 mg/dL (8.5-10.1)
[2023-06-08 08:51] LABS: BLOOD UREA NITROGEN 27.2 mg/dL (7-18)
[2023-06-08 08:54] LABS: CREATININE 1.4 mg/dL (0.55-1.3)
[2023-06-09 08:31] LABS: HEMATOCRIT 24.6 % (32.4-45.2); MCH 24.8 pg (25.7-33.7); MCHC 32.7 g/dl (32.0-36.0); MEAN CELL VOLUME 75.8 fl (80-96); MEAN PLT VOLUME 8.3 fl (7.5-11.1); PLATELET COUNT 555 10^3/uL (134-434); RBC 3.25 M/mm3 (3.60-5.2); RDW 16.4 % (11.6-15.6); WHITE BLOOD COUNT 9.8 K/mm3 (4.0-10.0)
[2023-06-09 08:46] LABS: POTASSIUM 4.3 mmol/L (3.5-5.1)
[2023-06-09 08:54] LABS: CALCIUM 8.3 mg/dL (8.5-10.1)
[2023-06-09 08:55] LABS: BLOOD UREA NITROGEN 29.1 mg/dL (7-18)
[2023-06-09 08:58] LABS: CREATININE 1.7 mg/dL (0.55-1.3)
[2023-06-09] MEDS ORDERED: FUROSEMIDE 40 MG/4 ML INJECTABLE VIAL IVPUSH SCH (10:00)
[2023-06-09] MEDS ORDERED: INSULIN ASPART SLIDING SCALE (NOVOLOG) 1 VIAL SQ ONE (10:52)
[2023-06-09] MEDS: ACETAMINOPHEN 500 MG TABLET (FP) PO PRN (17:16)
[2023-06-10 07:00] LABS: HEMATOCRIT 27.7 % (32.4-45.2); HEMOGLOBIN 8.9 GM/dL (10.7-15.3); MCH 24.5 pg (25.7-33.7); MCHC 32.1 g/dl (32.0-36.0); MEAN CELL VOLUME 76.3 fl (80-96); MEAN PLT VOLUME 8.2 fl (7.5-11.1); PLATELET COUNT 585 10^3/uL (134-434); RBC 3.63 M/mm3 (3.60-5.2); RDW 16.7 % (11.6-15.6); WHITE BLOOD COUNT 8.7 K/mm3 (4.0-10.0)
[2023-06-10 07:18] LABS: POTASSIUM 4.4 mmol/L (3.5-5.1)
[2023-06-10 07:21] LABS: CALCIUM 8.4 mg/dL (8.5-10.1)
[2023-06-10 07:22] LABS: BLOOD UREA NITROGEN 35.5 mg/dL (7-18)
[2023-06-10 07:25] LABS: CREATININE 1.9 mg/dL (0.55-1.3)
[2023-06-10] MEDS: SODIUM CHLORIDE 1,000 ML IV SCH (10:43)
[2023-06-10 17:01] VITALS: BMI 36.7
[2023-06-11 08:04] LABS: POTASSIUM 4.4 mmol/L (3.5-5.1)
[2023-06-11 08:05] LABS: BASO % 0.9 % (0-2.0); EOS % 1.6 % (0-4.5); HEMATOCRIT 27.1 % (32.4-45.2); HEMOGLOBIN 8.7 GM/dL (10.7-15.3); LYMPH % 25.2 % (8-40); MCH 24.6 pg (25.7-33.7); MCHC 32.2 g/dl (32.0-36.0); MEAN CELL VOLUME 76.6 fl (80-96); MEAN PLT VOLUME 8.4 fl (7.5-11.1); MONO % 6.8 % (3.8-10.2); NEUT % 65.5 % (42.8-82.8); PLATELET COUNT 564 10^3/uL (134-434); RBC 3.54 M/mm3 (3.60-5.2); RDW 16.5 % (11.6-15.6); WHITE BLOOD COUNT 9.6 K/mm3 (4.0-10.0)
[2023-06-11 08:07] LABS: ALBUMIN 2.1 g/dl (3.4-5.0); BLOOD UREA NITROGEN 32.9 mg/dL (7-18); CALCIUM 8.3 mg/dL (8.5-10.1)
[2023-06-11 08:12] LABS: BILIRUBIN,TOTAL 0.1 mg/dL (0.2-1); TOT PROT 6.1 g/dl (6.4-8.2)
[2023-06-11 08:15] LABS: N-TERMINAL BNP 788.2 pg/ml (5-125)
[2023-06-11] MEDS: FUROSEMIDE 40 MG TABLET (FP) PO SCH (14:25)
[2023-06-11 15:30] LABS: BF WBC & OTHER NUCLEATED CELLS 325 /mm3
[2023-06-11 15:54] LABS: BODY FLUID MACROPHAGES 65 %; BODY FLUID MESOTHELIAL 5 %
[2023-06-12 07:45] LABS: POTASSIUM 4.6 mmol/L (3.5-5.1)
[2023-06-12 07:56] LABS: ALBUMIN 2.1 g/dl (3.4-5.0); CALCIUM 8.3 mg/dL (8.5-10.1)
[2023-06-12 07:59] LABS: CREATININE 1.7 mg/dL (0.55-1.3)
[2023-06-12 08:01] LABS: BILIRUBIN,TOTAL 0.2 mg/dL (0.2-1); TOT PROT 5.9 g/dl (6.4-8.2)
[2023-06-12] MEDS ORDERED: ALBUTEROL SO4 2.5/IPRATROPIUM 0.5 INH SOL 3 ML VIAL.NEB. NEB PRN (10:34)
[2023-06-12] MEDS: FLUCONAZOLE 150 MG TABLET PO ONE (19:34)
[2023-06-12] MEDS: diphenhydrAMINE HCL 25 MG CAPSULE (FP) PO PRN (22:00)
[2023-06-12] MEDS: INSULIN (LEVEMIR) 100 UNITS/ML UNITS SQ SCH (22:02)
[2023-06-13] MEDS ORDERED: INSULIN (LEVEMIR) 100 UNITS/ML UNITS SQ ONE (06:49)
[2023-06-13] MEDS ORDERED: INSULIN ASPART SLIDING SCALE (NOVOLOG) 1 VIAL SQ ONE (06:49)
[2023-06-13] MEDS: ALBUTEROL SO4 2.5/IPRATROPIUM 0.5 INH SOL 3 ML VIAL.NEB. NEB PRN (07:55)
[2023-06-13 08:26] LABS: HEMATOCRIT 28.2 % (32.4-45.2); HEMOGLOBIN 9.2 GM/dL (10.7-15.3); MCH 24.9 pg (25.7-33.7); MCHC 32.7 g/dl (32.0-36.0); MEAN CELL VOLUME 76.1 fl (80-96); PLATELET COUNT 549 10^3/uL (134-434); RBC 3.71 M/mm3 (3.60-5.2); RDW 16.6 % (11.6-15.6); WHITE BLOOD COUNT 7.6 K/mm3 (4.0-10.0)
[2023-06-13 08:52] LABS: POTASSIUM 4.3 mmol/L (3.5-5.1)
[2023-06-13 09:00] LABS: ALBUMIN 2.2 g/dl (3.4-5.0)
[2023-06-13 09:03] LABS: CREATININE 1.6 mg/dL (0.55-1.3)
[2023-06-13 09:04] LABS: BILIRUBIN,TOTAL 0.2 mg/dL (0.2-1); TOT PROT 6.3 g/dl (6.4-8.2)
[2023-06-14] MEDS ORDERED: INSULIN (LEVEMIR) 100 UNITS/ML UNITS SQ ONE (07:34)
[2023-06-14] MEDS ORDERED: INSULIN ASPART SLIDING SCALE (NOVOLOG) 1 VIAL SQ ONE (07:34)
[2023-06-14 07:40] LABS: HEMATOCRIT 26.3 % (32.4-45.2); HEMOGLOBIN 8.7 GM/dL (10.7-15.3); MCH 25.2 pg (25.7-33.7); MCHC 33.2 g/dl (32.0-36.0); MEAN CELL VOLUME 75.9 fl (80-96); MEAN PLT VOLUME 8.2 fl (7.5-11.1); PLATELET COUNT 484 10^3/uL (134-434); RBC 3.47 M/mm3 (3.60-5.2); RDW 16.6 % (11.6-15.6); WHITE BLOOD COUNT 7.8 K/mm3 (4.0-10.0)
[2023-06-14 07:52] LABS: POTASSIUM 4.1 mmol/L (3.5-5.1)
[2023-06-14 07:54] LABS: CALCIUM 8.4 mg/dL (8.5-10.1)
[2023-06-14 07:55] LABS: ALBUMIN 2.4 g/dl (3.4-5.0); BLOOD UREA NITROGEN 33.4 mg/dL (7-18)
[2023-06-14 07:58] LABS: CREATININE 1.7 mg/dL (0.55-1.3)
[2023-06-14 07:59] LABS: BILIRUBIN,TOTAL 0.2 mg/dL (0.2-1); TOT PROT 6.4 g/dl (6.4-8.2)
[2023-06-14] MEDS: INSULIN (NOVOLOG) ASPART 100 UNITS/ML 10ML VIAL SQ SCH (11:39)
[2023-06-15 08:15] LABS: HEMATOCRIT 27.7 % (32.4-45.2); HEMOGLOBIN 8.9 GM/dL (10.7-15.3); MCH 24.7 pg (25.7-33.7); MCHC 32.2 g/dl (32.0-36.0); MEAN CELL VOLUME 76.8 fl (80-96); MEAN PLT VOLUME 8.3 fl (7.5-11.1); PLATELET COUNT 482 10^3/uL (134-434); RDW 16.9 % (11.6-15.6)
[2023-06-15 08:16] LABS: CALCIUM 8.8 mg/dL (8.5-10.1)
[2023-06-15 08:17] LABS: ALBUMIN 2.4 g/dl (3.4-5.0); BLOOD UREA NITROGEN 29.6 mg/dL (7-18)
[2023-06-15 08:20] LABS: CREATININE 1.6 mg/dL (0.55-1.3)
[2023-06-15 08:22] LABS: BILIRUBIN,TOTAL 0.2 mg/dL (0.2-1); TOT PROT 6.4 g/dl (6.4-8.2)
[2023-06-15] MEDS: ASPIRIN COATED 81 MG TABLET.EC PO SCH (09:40)
[2023-06-15] MEDS: ALBUTEROL SO4 2.5/IPRATROPIUM 0.5 INH SOL 3 ML VIAL.NEB. NEB SCH (11:34)
[2023-06-15] MEDS: FUROSEMIDE 40 MG TABLET (FP) PO ONE (16:48)
[2023-06-16] MEDS: FUROSEMIDE 40 MG/4 ML INJECTABLE VIAL IVPUSH SCH (09:38)
[2023-06-16] MEDS: IRON SUCROSE INJECTION 200 MG in SODIUM CHLORIDE 100 ML IVPB ONE (15:52)
[2023-06-17 09:29] LABS: HEMATOCRIT 27.9 % (32.4-45.2); HEMOGLOBIN 9.1 GM/dL (10.7-15.3); MCH 25.3 pg (25.7-33.7); MCHC 32.7 g/dl (32.0-36.0); MEAN CELL VOLUME 77.3 fl (80-96); MEAN PLT VOLUME 8.6 fl (7.5-11.1); PLATELET COUNT 405 10^3/uL (134-434); RBC 3.61 M/mm3 (3.60-5.2); WHITE BLOOD COUNT 7.2 K/mm3 (4.0-10.0)
[2023-06-17 10:00] LABS: POTASSIUM 4.4 mmol/L (3.5-5.1)
[2023-06-17 10:12] LABS: BLOOD UREA NITROGEN 30.2 mg/dL (7-18); CALCIUM 8.8 mg/dL (8.5-10.1); MAGNESIUM 2.5 mg/dL (1.8-2.4)
[2023-06-17 10:16] LABS: CREATININE 1.5 mg/dL (0.55-1.3)
[2023-06-17] MEDS: IRON SUCROSE INJECTION 200 MG in SODIUM CHLORIDE 100 ML IVPB ONE (14:49)
[2023-06-17] MEDS: INSULIN (LEVEMIR) 100 UNITS/ML UNITS SQ SCH (21:23)
[2023-06-17] MEDS ORDERED: INSULIN (LEVEMIR) 100 UNITS/ML UNITS SQ SCH (22:00)
[2023-06-18] MEDS: INSULIN (LEVEMIR) 100 UNITS/ML UNITS SQ SCH (06:14)
[2023-06-18 08:44] LABS: HEMATOCRIT 25.8 % (32.4-45.2); HEMOGLOBIN 8.4 GM/dL (10.7-15.3); MCH 25.2 pg (25.7-33.7); MCHC 32.6 g/dl (32.0-36.0); MEAN CELL VOLUME 77.2 fl (80-96); MEAN PLT VOLUME 8.5 fl (7.5-11.1); PLATELET COUNT 359 10^3/uL (134-434); RBC 3.35 M/mm3 (3.60-5.2); RDW 17.1 % (11.6-15.6); WHITE BLOOD COUNT 8.5 K/mm3 (4.0-10.0)
[2023-06-18 09:09] LABS: CALCIUM 8.5 mg/dL (8.5-10.1)
[2023-06-18 09:10] LABS: ALBUMIN 2.4 g/dl (3.4-5.0); BLOOD UREA NITROGEN 28.2 mg/dL (7-18)
[2023-06-18 09:13] LABS: BILIRUBIN,TOTAL 0.3 mg/dL (0.2-1); CREATININE 1.8 mg/dL (0.55-1.3)
[2023-06-18] MEDS: DEXTROSE 50%-WATER - 25 GM/50 ML VIAL IVPUSH ONE (14:16)
[2023-06-18] MEDS: DEXTROSE 50%-WATER 25 GM/50 ML DISP.SYRIN IVPUSH ONE (14:20)
[2023-06-18] MEDS: INSULIN (NOVOLOG) ASPART 100 UNITS/ML 10ML VIAL SQ SCH (17:42)
[2023-06-19 07:11] LABS: HEMATOCRIT 28.8 % (32.4-45.2); HEMOGLOBIN 9.3 GM/dL (10.7-15.3); MCH 25.3 pg (25.7-33.7); MCHC 32.4 g/dl (32.0-36.0); MEAN CELL VOLUME 78.1 fl (80-96); MEAN PLT VOLUME 8.3 fl (7.5-11.1); PLATELET COUNT 372 10^3/uL (134-434); RBC 3.68 M/mm3 (3.60-5.2); RDW 17.5 % (11.6-15.6); WHITE BLOOD COUNT 8.9 K/mm3 (4.0-10.0)
[2023-06-19 07:40] LABS: POTASSIUM 4.5 mmol/L (3.5-5.1)
[2023-06-19 07:46] LABS: CALCIUM 9.3 mg/dL (8.5-10.1)
[2023-06-19 07:47] LABS: ALBUMIN 2.6 g/dl (3.4-5.0); BLOOD UREA NITROGEN 29.4 mg/dL (7-18)
[2023-06-19 07:51] LABS: CREATININE 1.7 mg/dL (0.55-1.3); TOT PROT 6.7 g/dl (6.4-8.2)
[2023-06-19 07:52] LABS: BILIRUBIN,TOTAL 0.4 mg/dL (0.2-1)
[2023-06-19 14:11] VITALS: RESP 18
[2023-06-19] MEDS: IRON SUCROSE INJECTION 200 MG in SODIUM CHLORIDE 100 ML IVPB ONE (16:21)
[2023-06-20 08:20] VITALS: BP 146/85; PULSE 84; TEMP 97.5
[2023-06-20] MEDS: FUROSEMIDE 20 MG TABLET (FP) PO ONE (12:24)
== END 2023-06-20 14:19 | disposition home or self-care (01) | DRG 280 ==
LOC: JER 12:42 → JERBED 15:54 → J4W 05-27 20:42 → J6S 06-02 14:34 → J4S 06-04 02:01
PROVIDERS: ADMIT Internal Medicine; ATTEND Internal Medicine
PROC: 0W993ZZ Drainage of Right Pleural Cavity, Percutaneous Approach (ICD-10-PCS; principal; 2023-06-11)
DX: I11.0 Hypertensive heart disease with heart failure (principal); I50.33 Acute on chronic diastolic (congestive) heart failure; I21.4 Non-ST elevation (NSTEMI) myocardial infarction; J18.9 Pneumonia, unspecified organism; J96.01 Acute respiratory failure with hypoxia; N17.9 Acute kidney failure, unspecified; I24.89 Other forms of acute ischemic heart disease; R04.2 Hemoptysis; J90 Pleural effusion, not elsewhere classified; E11.51 Type 2 diabetes mellitus with diabetic peripheral angiopathy without gangrene; D50.9 Iron deficiency anemia, unspecified; E78.5 Hyperlipidemia, unspecified; E11.621 Type 2 diabetes mellitus with foot ulcer
CPT/HCPCS: 0241U-QW; 36415; 71045-TC-FY; 71250-TC; 71275-TC; 76604-TC; 76775-TC; 76942; 80048; 80053; 81003; 82150; 82465; 82550; 82607; 82728; 82746; 82803; 82945; 82962; 83036; 83520; 83540; 83550; 83615; 83735; 83880; 83986; 84100; 84157; 84478; 84484; 84703; 85025; 85027; 85045; 85610; 85730; 86162; 86256; 86850; 86900; 86901; 87040; 87070; 87075; 87102; 87116; 87205; 87206; 87210; 87389; 87633; 87899; 88108; 88305-TC; 93005; 93010; 93306-TC; 93970-TC; 94640; 94660; 94761; 97116-GP; 97162-GP; 99291; J1644; J1756; Q9967

== ENCOUNTER 2023-11-29 08:32 | Emergency (ER) | payer OTHER ==
[2023-11-29 08:41] VITALS: RESP 18; TEMP 98.1; BMI 24.2
[2023-11-29] MEDS ORDERED: ACETAMINOPHEN INJECTION 100 ML ONE (09:41)
[2023-11-29 10:09] LABS: BASO % 0.3 % (0-2.0); EOS % 1.4 % (0-4.5); HEMATOCRIT 34.3 % (32.4-45.2); HEMOGLOBIN 11.3 GM/dL (10.7-15.3); LYMPH % 29.4 % (8-40); MCH 24.8 pg (25.7-33.7); MCHC 32.9 g/dl (32.0-36.0); MEAN CELL VOLUME 75.5 fl (80-96); MEAN PLT VOLUME 8.5 fl (7.5-11.1); MONO % 8.5 % (3.8-10.2); NEUT % 60.4 % (42.8-82.8); PLATELET COUNT 398 10^3/uL (134-434); RBC 4.54 M/mm3 (3.60-5.2); RDW 14.8 % (11.6-15.6); WHITE BLOOD COUNT 7.5 K/mm3 (4.0-10.0)
[2023-11-29 10:12] LABS: EPI CELLS >36 /uL (0-25.1); HYALINE CASTS 39 /uL (0-3.1); PH,URINE 6.5 (5.0-8.0); URINE APPEARANCE TURBID; URINE BACTERIA >9,000 /uL (0-1359); URINE BILIRUBIN NEGATIVE (NEGATIVE); URINE COLOR YELLOW; URINE GLUCOSE (UA) 1+ (NEGATIVE); URINE KETONE NEGATIVE (NEGATIVE); URINE LEUK ESTERASE 3+ (NEGATIVE); URINE NITRITE NEGATIVE (NEGATIVE); URINE PROTEIN 4+ (NEGATIVE); URINE RBC 327 /uL (0-23.9); URINE UROBILINOGEN 0.2 mg/dL (0.2-1.0); URINE WBC 14555 /uL (0-25.8)
[2023-11-29 10:25] LABS: POTASSIUM 3.1 mmol/L (3.5-5.1)
[2023-11-29 10:28] LABS: CALCIUM 9.3 mg/dL (8.5-10.1)
[2023-11-29 10:29] LABS: ALBUMIN 2.6 g/dl (3.4-5.0); BLOOD UREA NITROGEN 20.6 mg/dL (7-18)
[2023-11-29 10:31] LABS: CREATININE 1.5 mg/dL (0.55-1.3)
[2023-11-29 10:33] LABS: BILIRUBIN,TOTAL 0.3 mg/dL (0.2-1); TOT PROT 7.3 g/dl (6.4-8.2)
[2023-11-29] MEDS: ACETAMINOPHEN 1000 MG/100 ML BAG IVPB ONE (11:00)
[2023-11-29] MEDS: SODIUM CHLORIDE 0.9% 500 ML INFUS.BAG IV ONE (11:00)
[2023-11-29] MEDS ORDERED: POTASSIUM CHLORIDE TABS 20 MEQ TABLET.ER (FP) PO ONE (11:51)
[2023-11-29] MEDS ORDERED: CEFTRIAXONE 1 GM/50 ML BAG ONE (11:51)
[2023-11-29] MEDS: POTASSIUM CHLORIDE ORAL LIQUID 20 MEQ/15 ML PO ONE (11:55)
[2023-11-29 12:40] VITALS: BP 151/99; PULSE 82
== END 2023-11-29 12:41 | disposition home or self-care (01) ==
LOC: JER 08:32
PROC: 3E033NZ Introduction of Analgesics, Hypnotics, Sedatives into Peripheral Vein, Percutaneous Approach (ICD-10-PCS; principal; 2023-11-29)
PROC: 3E03329 Introduction of Other Anti-infective into Peripheral Vein, Percutaneous Approach (ICD-10-PCS; 2023-11-29)
DX: N39.0 Urinary tract infection, site not specified (principal); R10.30 Lower abdominal pain, unspecified
CPT/HCPCS: 36415; 80053; 81003; 85025; 87077; 87086; 96365; 96375; 99284-25; G0463-25; J0131